=== PATIENT | female | born 1960 | race Caucasian/White ===

== ENCOUNTER 2020-09-03 12:21 | Inpatient (IN) | payer BC ==
[2020-09-03] MEDS ORDERED: Acetaminophen 325 MG Tab PO PRN (12:56)
[2020-09-03] MEDS ORDERED: Morphine 2 MG/ML SYRINGE IVPUSH PRN (12:57)
[2020-09-03] MEDS ORDERED: oxyCODONE 5 MG Tab PO PRN (12:57)
--- NOTE | 2020-09-03 12:58 | PCM.HP.2 ---
<Aldair Richards - Last Filed: 09/03/20 14:37> H&P History of Present Illness - General Date of Service: 09/03/20 Admit Problem/Dx: Admission Diagnosis/Problem Admission Diagnosis/Problem Abdominal pain Source of Information: Patient, Old Records, Provider, RN, RN Notes Reviewed History Limitations: Reports: No Limitations - History of Present Illness Initial Comments - Free Text/Narative: This is a 60-year-old female who presented to the walk-in clinic at [facility] with abdominal pain. She reports the pain began yesterday evening and is gotten worse, to the point where she cannot find a comfortable position. Denies any fever, nausea, diarrhea, constipation, blood in stool, dysuria, urinary frequency or urgency. Reports she did vomit this morning. Has been attempting to eat saltines and yogurt but they did not make her pain any better or worse. States pain is cramping consistent. Denies any previous abdominal surgery or history of diverticulosis or diverticulitis. At the walk-in clinic blood pressure was 136/85. Pulse 71. Temp 97.6 Fahrenheit. Respirations 16. Oxygen saturations were 99% on room air. Labs are obtained showing a leukocytosis of 15.0. Hemoglobin 15.5. Lipase is elevated at 198, with a reference range of 8-78 being normal. UA is obtained and is grossly negative. CMP and amylase are still pending. Abdominal pelvis with contrast is obtained and shows acute pancreatitis without evidence of necrosis and a mildly complex right renal cyst. They recommend follow-up imaging within 6 to 12 months. Additional chronic findings are also noted. Patient reports significant abdominal pain. Patient was subsequently set to our hospital for direct admit for management of her pancreatitis. She carries a history of hypercholesteremia, hemorrhoids, and high triglycerides. She is a full code. Her PCP is Dr. German. - Related Data Allergies/Adverse Reactions: Allergies Allergy/AdvReac Type Severity Reaction Status Date / Time No Known Allergies Allergy Verified 06/11/14 17:49 Home Medications: Home Meds Calcium Carbonate [Calcium] 500 mg PO BID 09/03/20 [History] Cholecalciferol (Vitamin D3) [Vitamin D3] 1,000 unit PO DAILY 09/03/20 [History] Estrogens, Conjugated [Premarin Vaginal Crm] 30 gm VAG ASDIRECTED 09/03/20 [History] Gluc/MSM/C/[place]rape[place]/Manganes/Prim [Joint Support Complex Softgel] 1 tab PO BID 09/03/20 [History] Loratadine [Claritin] 10 mg PO DAILY 09/03/20 [History] Multivitamin [Multi-Day Vitamins] 1 tab PO DAILY 09/03/20 [History] Rosuvastatin [Crestor] 20 mg PO DAILY 09/03/20 [History] Ubidecarenone [Co Q-10] 50 mg PO DAILY 09/03/20 [History] H&P Review of Systems - Review of Systems: Review Of Systems: See Below General: Reports: No Symptoms. Denies: Fever, Chills, Malaise, Weakness, Fatigue HEENT: Reports: No Symptoms. Denies: Headaches, Sore Throat Pulmonary: Reports: No Symptoms. Denies: Shortness of Breath, Wheezing, Pleuritic Chest Pain, Cough, Sputum Cardiovascular: Reports: No Symptoms. Denies: Chest Pain, Palpitations, Dyspnea on Exertion, Edema Gastrointestinal: Reports: Abdominal Pain (generalized ), Vomiting. Denies: Black Stool, Bloody Stool, Constipation, Diarrhea, Nausea Genitourinary: Reports: No Symptoms. Denies: Pain Musculoskeletal: Reports: No Symptoms Skin: Reports: No Symptoms. Denies: Cyanosis Psychiatric: Reports: No Symptoms. Denies: Confusion Neurological: Reports: No Symptoms. Denies: Difficulty Walking, Gait Disturbance Hematologic/Lymphatic: Reports: No Symptoms Immunologic: Reports: No Symptoms Exam - Exam Exam: See Below - Vital Signs Weight: 179 lb 3.2 oz - Exam Quality Assessment: DVT Prophylaxis. No: Supplemental Oxygen, Urinary Catheter General: Alert, Oriented, Cooperative. No: Mild Distress HEENT: Conjunctiva Clear, EACs Clear, Mucosa Moist & [place], Nares Patent, Posterior Pharynx Clear Neck: Supple, Trachea Midline Lungs: Clear to Auscultation, Normal Respiratory Effort Cardiovascular: Regular Rate, Regular Rhythm GI/Abdominal Exam: Normal Bowel Sounds, Soft, No Distention, Guarding, Tender (Generalized ) (Female) Exam: Deferred Rectal (Female) Exam: Deferred Back Exam: Normal Inspection, Full Range of Motion Extremities: Normal Inspection, Normal Range of Motion, Non-Tender, No Pedal Edema, Normal Capillary Refill Skin: Warm, Dry, Intact Neurological: Cranial Nerves Intact (Grossly ) Neuro Extensive - Mental Status: Alert, Oriented x3, Normal Mood/Affect - Problem List (1) Pancreatitis SNOMED Code(s): 95514792 ICD Code: K85.90 - ACUTE PANCREATITIS WITHOUT NECROSIS OR INFECTION, UNSP Status: Acute Priority: High Current Visit: Yes Qualifiers: Chronicity: acute Pancreatitis type: unspecified pancreatitis type Acute pancreatitis complication: no infection or necrosis Qualified Code(s): K85.90 - Acute pancreatitis without necrosis or infection, unspecified (2) Abdominal pain SNOMED Code(s): 31775324 ICD Code: R10.9 - UNSPECIFIED ABDOMINAL PAIN Status: Acute Priority: High Current Visit: Yes Qualifiers: Abdominal location: generalized Qualified Code(s): R10.84 - Generalized abdominal pain (3) HLD (hyperlipidemia) SNOMED Code(s): 37886443 ICD Code: E78.5 - HYPERLIPIDEMIA, UNSPECIFIED Status: Chronic Priority: Medium Current Visit: Yes Qualifiers: Hyperlipidemia type: unspecified Qualified Code(s): E78.5 - Hyperlipidemia, unspecified (4) Hypertriglyceridemia SNOMED Code(s): 055595390 ICD Code: E78.1 - PURE HYPERGLYCERIDEMIA Status: Chronic Priority: Medium Current Visit: Yes (5) Nausea & vomiting SNOMED Code(s): 19065331 ICD Code: R11.2 - NAUSEA WITH VOMITING, UNSPECIFIED Status: Acute Priority: High Current Visit: Yes Qualifiers: Vomiting type: unspecified Vomiting Intractability: non-intractable Qualified Code(s): R11.2 - Nausea with vomiting, unspecified Problem List Initiated/Reviewed/Updated: Yes Orders Last 24hrs: Active Orders 24 hr Category Date Time Status Patient Status [ADT] Routine ADT 09/03/20 12:54 Ordered Height and Weight [RC] DAILY Care 09/03/20 12:53 Ordered Intake and Output [RC] DAILY Care 09/03/20 12:55 Ordered Oxygen Therapy [RC] ASDIRECTED Care 09/03/20 12:53 Ordered Pulse Oximetry [RC] PRN Care 09/03/20 12:55 Ordered Up ad Daysi [RC] ASDIRECTED Care 09/03/20 12:53 Ordered Vital Signs [RC] Q6H Care 09/03/20 12:53 Ordered Consult to [employer] [CONS] Routine Cons 09/03/20 12:53 Ordered Nothing per Oral Now Diet [DIET] Diet 09/03/20 Lunch Ordered C-REACTIVE PROTEIN [CHEM] AM Lab 09/04/20 05:11 Ordered C-REACTIVE PROTEIN [CHEM] AM Lab 09/05/20 05:11 Ordered C-REACTIVE PROTEIN [CHEM] AM Lab 09/06/20 05:11 Ordered C-REACTIVE PROTEIN [CHEM] AM Lab 09/07/20 05:11 Ordered CBC WITH AUTO DIFF [HEME] AM Lab 09/04/20 05:11 Ordered CBC WITH AUTO DIFF [HEME] AM Lab 09/05/20 05:11 Ordered CBC WITH AUTO DIFF [HEME] AM Lab 09/06/20 05:11 Ordered CBC WITH AUTO DIFF [HEME] AM Lab 09/07/20 05:11 Ordered COMPREHENSIVE METABOLIC PN,CMP [CHEM] AM Lab 09/04/20 05:11 Ordered COMPREHENSIVE METABOLIC PN,CMP [CHEM] AM Lab 09/05/20 05:11 Ordered COMPREHENSIVE METABOLIC PN,CMP [CHEM] AM Lab 09/06/20 05:11 Ordered COMPREHENSIVE METABOLIC PN,CMP [CHEM] AM Lab 09/07/20 05:11 Ordered LIPID PANEL [CHEM] Routine Lab 09/03/20 12:56 Ordered MAGNESIUM [CHEM] AM Lab 09/04/20 05:11 Ordered MAGNESIUM [CHEM] AM Lab 09/05/20 05:11 Ordered MAGNESIUM [CHEM] AM Lab 09/06/20 05:11 Ordered MAGNESIUM [CHEM] AM Lab 09/07/20 05:11 Ordered Acetaminophen [TylenoL] Med 09/03/20 12:56 Ordered 650 mg PO Q6H PRN Morphine Med 09/03/20 12:57 Ordered 2 mg IVPUSH Q2H PRN Ondansetron [Zofran] Med 09/03/20 12:53 Ordered 4 mg IV Q6H PRN Sodium Chloride 0.9% @ 150 MLS/HR (1000ml Bag) Med 09/03/20 13:00 Ordered Sodium Chloride 0.9% [Normal Saline] 1,000 ml IV ASDIRECTED oxyCODONE Med 09/03/20 12:57 Ordered 5 mg PO Q6H PRN Resuscitation Status Routine Resus Stat 09/03/20 12:53 Ordered Medication Orders Acetaminophen (Acetaminophen 325 Mg Tab) 650 mg PO Q6H PRN PRN Reason: Pain (mild 1-3) Sodium Chloride (Normal Saline) 1,000 mls @ 150 mls/hr IV ASDIRECTED [facility] Morphine Sulfate (Morphine 2 Mg/Ml Syringe) 2 mg IVPUSH Q2H PRN PRN Reason: Pain (severe 7-10) Ondansetron HCl (Ondansetron 4 Mg/2 Ml Sdv) 4 mg IV Q6H PRN PRN Reason: Nausea/Vomiting Oxycodone HCl (Oxycodone 5 Mg Tab) 5 mg PO Q6H PRN PRN Reason: Pain (moderate 4-6) Assessment/Plan Comment:: Assessment - day of admission 09/03/2020 * 60-year-old female who presented to the walk-in clinic at [facility] with abdominal pain * History of hypercholesteremia, hemorrhoids, and high triglycerides. * Pain began yesterday evening and is gotten worse, to the point where she cannot find a comfortable position * Denies any fever, nausea, diarrhea, constipation, blood in stool, dysuria, urinary frequency or urgency * Did vomit this morning. * Has been attempting to eat saltines and yogurt but they did not make her pain any better or worse. * States pain is cramping and consistent in nature * Denies any previous abdominal surgery or history of diverticulosis or diverticulitis * At the walk-in clinic blood pressure was 136/85. Pulse 71. Temp 97.6 Fahrenheit. Respirations 16. Oxygen saturations were 99% on room air. * Labs are obtained: * WBC 15.0. * Hemoglobin 15.5. * Lipase is elevated at 198, with a reference range of 8-78 being normal. * UA is obtained and is grossly negative. * CMP and amylase are still pending. * Abdominal pelvis with contrast is obtained and shows acute pancreatitis without evidence of necrosis and a mildly complex right renal cyst. They recommend follow-up imaging within 6 to 12 months. Additional chronic find ings are also noted. * Patient reports significant abdominal pain. * Was subsequently set to our hospital for direct admit for management of her pancreatitis. PLAN Pancreatitis Abdominal pain HLD (hyperlipidemia) Hypertriglyceridemia Nausea & vomiting * NPO for now * IV fluids as ordered * Check lipid panel * Repeat AM labs * Consider abdominal US, although no current signs of biliary involvement * [employer] consultation * Pain medications as ordered * COVID-19 screen for admission * O2 as need to keep saturations >92% Code status: Full code PCP: Dr. German DVT prophylaxis: Lovenox Disposition: Patient admitted observation status for pain management and further management of her pancreatitis. Of note original order was placed for inpatient, however this is an error. Likely length of stay 1 to 2 days. - Mortality Measure Prognosis:: Good <NakiaOwen Kasper Jr - Last Filed: 09/04/20 05:52> H&P History of Present Illness - General Admit Problem/Dx: Admission Diagnosis/Problem Admission Diagnosis/Problem Abdominal pain Exam - Vital Signs Vital Signs: Last Vital Signs Temp 97.7 F 09/04/20 05:16 Pulse 79 09/04/20 05:16 Resp 18 09/04/20 05:16 BP 117/70 09/04/20 05:16 Pulse Ox 91 L 09/04/20 05:16 - Patient Data Lab Results Last 24 hrs: Laboratory Results - last 24 hr 09/03/20 09/03/20 09/03/20 Range/Units 13:30 14:00 15:12 Sodium 134 L (136-145) mEq/L Potassium 3.7 (3.5-5.1) mEq/L Chloride 98 (98-107) mEq/L Carbon Dioxide 23 (21-32) mEq/L Anion Gap 16.7 H (5-15) BUN 7 (7-18) mg/dL Creatinine TNP Est Cr Clr Drug Dosing 67.59 mL/min Estimated GFR (MDRD) > 60 (>60) mL/min BUN/Creatinine Ratio 10.0 L (14-18) Glucose 209 H (70-99) mg/dL POC Glucose (70-99) mg/dL Lactic Acid Calcium 7.4 L (8.5-10.1) mg/dL Total Bilirubin 0.9 (0.2-1.0) mg/dL AST TNP ALT TNP Alkaline Phosphatase 63 (46-116) U/L Total Protein TNP Albumin 3.5 (3.4-5.0) g/dl Globulin 3.1 gm/dL Albumin/Globulin Ratio 1.1 (1-2) Triglycerides 3791 H (<150) mg/dL Cholesterol 441 H (<200) mg/dL LDL Cholesterol Direct 72 (<100) mg/dL HDL Cholesterol 27.0 L (40-59) mg/dL TSH 3rd Generation 1.172 (0.358-3.74) uIU/mL SARS-CoV-2 RNA (KIM) Negative (NEGATIVE) 09/03/20 09/03/20 09/03/20 Range/Units 15:12 16:45 23:47 Sodium (136-145) mEq/L Potassium (3.5-5.1) mEq/L Chloride (98-107) mEq/L Carbon Dioxide (21-32) mEq/L Anion Gap (5-15) BUN (7-18) mg/dL Creatinine Est Cr Clr Drug Dosing mL/min Estimated GFR (MDRD) (>60) mL/min BUN/Creatinine Ratio (14-18) Glucose (70-99) mg/dL POC Glucose 133 H 155 H (70-99) mg/dL Lactic Acid TNP Calcium (8.5-10.1) mg/dL Total Bilirubin (0.2-1.0) mg/dL AST ALT Alkaline Phosphatase (46-116) U/L Total Protein Albumin (3.4-5.0) g/dl Globulin gm/dL Albumin/Globulin Ratio (1-2) Triglycerides (<150) mg/dL Cholesterol (<200) mg/dL LDL Cholesterol Direct (<100) mg/dL HDL Cholesterol (40-59) mg/dL TSH 3rd Generation (0.358-3.74) uIU/mL SARS-CoV-2 RNA (KIM) (NEGATIVE) 09/04/20 Range/Units 05:11 Sodium (136-145) mEq/L Potassium (3.5-5.1) mEq/L Chloride (98-107) mEq/L Carbon Dioxide (21-32) mEq/L Anion Gap (5-15) BUN (7-18) mg/dL Creatinine Est Cr Clr Drug Dosing mL/min Estimated GFR (MDRD) (>60) mL/min BUN/Creatinine Ratio (14-18) Glucose (70-99) mg/dL POC Glucose 140 H (70-99) mg/dL Lactic Acid Calcium (8.5-10.1) mg/dL Total Bilirubin (0.2-1.0) mg/dL AST ALT Alkaline Phosphatase (46-116) U/L Total Protein Albumin (3.4-5.0) g/dl Globulin gm/dL Albumin/Globulin Ratio (1-2) Triglycerides (<150) mg/dL Cholesterol (<200) mg/dL LDL Cholesterol Direct (<100) mg/dL HDL Cholesterol (40-59) mg/dL TSH 3rd Generation (0.358-3.74) uIU/mL SARS-CoV-2 RNA (KIM) (NEGATIVE) Result Diagrams: 09/03/20 15:12 Sepsis Event Note - Focused Exam Vital Signs: Vital Signs Temp Pulse Resp BP Pulse Ox 09/04/20 05:16 97.7 F 79 18 117/70 91 L 09/03/20 23:51 97.5 F 80 20 122/77 92 L 09/03/20 19:44 98.1 F 87 16 143/83 H 92 L Orders Last 24hrs: Active Orders 24 hr Category Date Time Status Patient Status [ADT] Routine ADT 09/03/20 13:51 Active Blood Glucose Check, Bedside [RC] Q6HR Care 09/03/20 14:36 Active Height and Weight [RC] 04 Care 09/03/20 12:53 Active Intake and Output [RC] 04,16 Care 09/03/20 12:55 Active Peripheral IV Care [RC] Q4HR Care 09/03/20 12:59 Active Pulse Oximetry [RC] PRN Care 09/03/20 12:55 Active Up ad Daysi [RC] BID Care 09/03/20 12:53 Active Vital Signs [RC] 09,15,21,03 Care 09/03/20 12:53 Active Consult to [employer] [CONS] Routine Cons 09/03/20 12:53 Active Nothing per Oral Now Diet [DIET] Diet 09/03/20 Lunch Active C-REACTIVE PROTEIN [CHEM] AM Lab 09/04/20 05:11 Ordered C-REACTIVE PROTEIN [CHEM] AM Lab 09/05/20 05:11 Ordered C-REACTIVE PROTEIN [CHEM] AM Lab 09/06/20 05:11 Ordered C-REACTIVE PROTEIN [CHEM] AM Lab 09/07/20 05:11 Ordered CBC WITH AUTO DIFF [HEME] AM Lab 09/04/20 05:11 Ordered CBC WITH AUTO DIFF [HEME] AM Lab 09/05/20 05:11 Ordered CBC WITH AUTO DIFF [HEME] AM Lab 09/06/20 05:11 Ordered CBC WITH AUTO DIFF [HEME] AM Lab 09/07/20 05:11 Ordered COMPREHENSIVE METABOLIC PN,CMP [CHEM] AM Lab 09/04/20 05:11 Ordered COMPREHENSIVE METABOLIC PN,CMP [CHEM] AM Lab 09/05/20 05:11 Ordered COMPREHENSIVE METABOLIC PN,CMP [CHEM] AM Lab 09/06/20 05:11 Ordered COMPREHENSIVE METABOLIC PN,CMP [CHEM] AM Lab 09/07/20 05:11 Ordered MAGNESIUM [CHEM] AM Lab 09/04/20 05:11 Ordered MAGNESIUM [CHEM] AM Lab 09/05/20 05:11 Ordered MAGNESIUM [CHEM] AM Lab 09/06/20 05:11 Ordered MAGNESIUM [CHEM] AM Lab 09/07/20 05:11 Ordered Acetaminophen [TylenoL] Med 09/03/20 12:56 Active 650 mg PO Q6H PRN Enoxaparin [Lovenox] Med 09/04/20 09:00 Pending 40 mg SUBCUT DAILY Fenofibrate Med 09/04/20 09:00 Active 54 mg PO DAILY HYDROmorphone [Dilaudid] Med 09/03/20 20:25 Active 2 mg IVPUSH Q4H PRN Ondansetron [Zofran] Med 09/03/20 12:53 Active 4 mg IV Q6H PRN Rosuvastatin [Crestor] Med 09/03/20 21:00 Active 20 mg PO BEDTIME Sodium Chloride 0.9% [Normal Saline] 1,000 ml Med 09/03/20 14:45 Active IV ASDIRECTED Sodium Chloride 0.9% [Saline Flush] Med 09/03/20 12:59 Active 10 ml FLUSH ASDIRECTED PRN oxyCODONE Med 09/03/20 12:57 Active 5 mg PO Q6H PRN Peripheral IV Insertion Adult [OM.PC] Routine Oth 09/03/20 12:59 Ordered Resuscitation Status Routine Resus Stat 09/03/20 12:53 Ordered Medication Orders Acetaminophen (Acetaminophen 325 Mg Tab) 650 mg PO Q6H PRN PRN Reason: Pain (mild 1-3) Enoxaparin Sodium (Enoxaparin 40 Mg/0.4 Ml Syringe) 40 mg SUBCUT DAILY [place] Fenofibrate (Fenofibrate 54 Mg Tab) 54 mg PO DAILY [place] Hydromorphone HCl (Hydromorphone 1 Mg/Ml Syringe) 2 mg IVPUSH Q4H PRN PRN Reason: Pain Last Admin: 09/04/20 05:32 Dose: 2 mg Documented by: Admin: 09/03/20 23:21 Dose: 2 mg Documented by: SCOTT Sodium Chloride (Normal Saline) 1,000 mls @ 250 mls/hr IV ASDIRECTED [facility] Last Admin: 09/04/20 05:29 Dose: 250 mls/hr Documented by: Infusion: 09/04/20 05:24 Dose: 250 mls/hr Documented by: Admin: 09/04/20 01:24 Dose: 250 mls/hr Documented by: Infusion: 09/04/20 01:17 Dose: 250 mls/hr Documented by: Admin: 09/03/20 21:17 Dose: 250 mls/hr Documented by: Infusion: 09/03/20 21:17 Dose: 250 mls/hr Documented by: Admin: 09/03/20 17:53 Dose: 250 mls/hr Documented by: Infusion: 09/03/20 17:53 Dose: 250 mls/hr Documented by: Admin: 09/03/20 14:52 Dose: 250 mls/hr Documented by: ILSA Ondansetron HCl (Ondansetron 4 Mg/2 Ml Sdv) 4 mg IV Q6H PRN PRN Reason: Nausea/Vomiting Last Admin: 09/04/20 05:30 Dose: 4 mg Documented by: Admin: 09/03/20 23:16 Dose: 4 mg Documented by: SCOTT Oxycodone HCl (Oxycodone 5 Mg Tab) 5 mg PO Q6H PRN PRN Reason: Pain (moderate 4-6) Rosuvastatin Calcium (Rosuvastatin 10 Mg Tab) 20 mg PO BEDTIME [facility] Last Admin: 09/03/20 21:16 Dose: 20 mg Documented by: SCOTT Sodium Chloride (Sodium Chloride 0.9% 10 Ml Syringe) 10 ml FLUSH ASDIRECTED PRN PRN Reason: Keep Vein Open Assessment/Plan Comment:: Case discussed in full. Agree with evaluation, assessment and plan.
[2020-09-03] MEDS ORDERED: Sodium Chloride 0.9% 10 ML Syringe FLUSH PRN (12:59)
[2020-09-03] MEDS ORDERED: Sodium Chloride 0.9% 1,000 ML IV SCH (13:00)
[2020-09-03] MEDS ORDERED: HYDROmorphone 0.5 MG/0.5 ML Syringe IVPUSH ONE (14:36)
[2020-09-03] MEDS ORDERED: Ondansetron 4 MG/2 ML SDV IVPUSH ONE (14:38)
[2020-09-03] MEDS ORDERED: oxyCODONE 5 MG Tab PO ONE (14:39)
[2020-09-03] MEDS ORDERED: Morphine 4 MG/ML Syringe IVPUSH PRN (14:44)
[2020-09-03] MEDS: Sodium Chloride 0.9% 1,000 ML IV SCH ×3 (14:52→21:17)
[2020-09-03] MEDS ORDERED: HYDROmorphone 1 MG/ML Syringe IVPUSH ONE (19:00)
[2020-09-03] MEDS ORDERED: HYDROmorphone 1 MG/ML Syringe ONE (19:03)
[2020-09-03] MEDS ORDERED: Rosuvastatin 10 MG Tab PO SCH ×2 (21:00)
[2020-09-03] MEDS: Rosuvastatin 10 MG Tab PO SCH (21:16)
[2020-09-03] MEDS: Ondansetron 4 MG/2 ML SDV IV PRN (23:16)
[2020-09-03] MEDS: HYDROmorphone 1 MG/ML Syringe IVPUSH PRN (23:21)
[2020-09-04] MEDS: Sodium Chloride 0.9% 1,000 ML IV SCH ×6 (01:24→22:08)
[2020-09-04] MEDS: Ondansetron 4 MG/2 ML SDV IV PRN (05:30)
[2020-09-04] MEDS: HYDROmorphone 1 MG/ML Syringe IVPUSH PRN ×2 (05:32→16:39)
[2020-09-04] MEDS: Enoxaparin 40 MG/0.4 ML Syringe SUBCUT SCH (08:48)
[2020-09-04] MEDS: Fenofibrate 54 MG Tab PO SCH (08:49)
[2020-09-04] MEDS ORDERED: Sodium Chloride 0.9% 10 ML Syringe FLUSH PRN (11:09)
--- NOTE | 2020-09-04 11:16 | PCM.PN ---
<Aldair Richards - Last Filed: 09/04/20 11:16> - General Info Date of Service: 09/04/20 Admission Dx/Problem (Free Text): Admission Diagnosis/Problem Admission Diagnosis/Problem Abdominal pain Functional Status: Reports: Pain Controlled (For the most part ), Ambulating, Urinating. Denies: Tolerating Diet (NPO), New Symptoms - Review of Systems General: Reports: Weakness, Fatigue, Malaise. Denies: Chills HEENT: Reports: No Symptoms. Denies: Headaches, Post Nasal Drip, Sore Throat, Visual Changes Pulmonary: Reports: No Symptoms. Denies: Shortness of Breath, Cough, Sputum, Wheezing Cardiovascular: Reports: No Symptoms. Denies: Chest Pain, Palpitations, Dyspnea on Exertion, Edema Gastrointestinal: Reports: Abdominal Pain (LUQ>LLQ, generalized ), Decreased Appetite, Nausea, Vomiting. Denies: Constipation, Diarrhea Genitourinary: Reports: No Symptoms. Denies: Pain Musculoskeletal: Reports: No Symptoms Skin: Reports: No Symptoms. Denies: Cyanosis Neurological: Reports: No Symptoms. Denies: Confusion, Dizziness, Headache, Numbness, Pre-Existing Deficit, Tingling, Difficulty Walking, Gait Disturbance Psychiatric: Reports: No Symptoms - Patient Data Vitals - Most Recent: Last Vital Signs Temp 97.9 F 09/04/20 08:33 Pulse 81 09/04/20 08:33 Resp 20 09/04/20 08:33 BP 110/66 09/04/20 08:33 Pulse Ox 93 L 09/04/20 08:33 Weight - Most Recent: 185 lb 4.8 oz I&O - Last 24 Hours: Intake & Output 09/03/20 09/04/20 09/04/20 22:59 06:59 14:59 Intake Total 3772 Output Total 650 Balance 3122 Lab Results Last 24 Hours: Laboratory Results - last 24 hr 09/03/20 09/03/20 09/03/20 Range/Units 13:30 14:00 15:12 WBC (3.98-10.04) K/mm3 RBC (3.98-5.22) M/mm3 Hgb (11.2-15.7) gm/dl Hct (34.1-44.9) % MCV (79.4-94.8) fl MCH (25.6-32.2) pg MCHC (32.2-35.5) g/dl RDW Std Deviation (36.4-46.3) fL Plt Count (182-369) K/mm3 MPV (9.4-12.3) fl Neut % (Auto) (34.0-71.1) % Lymph % (Auto) (19.3-51.7) % Day % (Auto) (4.7-12.5) % Eos % (Auto) (0.7-5.8) Baso % (Auto) (0.1-1.2) % Neut # (Auto) (1.56-6.13) K/mm3 Lymph # (Auto) (1.18-3.74) K/mm3 Day # (Auto) (0.24-0.36) K/mm3 Eos # (Auto) (0.04-0.36) K/mm3 Baso # (Auto) (0.01-0.08) K/mm3 Sodium 134 L (136-145) mEq/L Potassium 3.7 (3.5-5.1) mEq/L Chloride 98 (98-107) mEq/L Carbon Dioxide 23 (21-32) mEq/L Anion Gap 16.7 H (5-15) BUN 7 (7-18) mg/dL Creatinine TNP Est Cr Clr Drug Dosing 67.59 mL/min Estimated GFR (MDRD) > 60 (>60) mL/min BUN/Creatinine Ratio 10.0 L (14-18) Glucose 209 H (70-99) mg/dL POC Glucose (70-99) mg/dL Lactic Acid Calcium 7.4 L (8.5-10.1) mg/dL Magnesium (1.8-2.4) mg/dL Total Bilirubin 0.9 (0.2-1.0) mg/dL AST TNP ALT TNP Alkaline Phosphatase 63 (46-116) U/L C-Reactive Protein (<1.0) mg/dL Total Protein TNP Albumin 3.5 (3.4-5.0) g/dl Globulin 3.1 gm/dL Albumin/Globulin Ratio 1.1 (1-2) Triglycerides 3791 H (<150) mg/dL Cholesterol 441 H (<200) mg/dL LDL Cholesterol Direct 72 (<100) mg/dL HDL Cholesterol 27.0 L (40-59) mg/dL TSH 3rd Generation 1.172 (0.358-3.74) uIU/mL SARS-CoV-2 RNA (KIM) Negative (NEGATIVE) 09/03/20 09/03/20 09/03/20 Range/Units 15:12 16:45 23:47 WBC (3.98-10.04) K/mm3 RBC (3.98-5.22) M/mm3 Hgb (11.2-15.7) gm/dl Hct (34.1-44.9) % MCV (79.4-94.8) fl MCH (25.6-32.2) pg MCHC (32.2-35.5) g/dl RDW Std Deviation (36.4-46.3) fL Plt Count (182-369) K/mm3 MPV (9.4-12.3) fl Neut % (Auto) (34.0-71.1) % Lymph % (Auto) (19.3-51.7) % Day % (Auto) (4.7-12.5) % Eos % (Auto) (0.7-5.8) Baso % (Auto) (0.1-1.2) % Neut # (Auto) (1.56-6.13) K/mm3 Lymph # (Auto) (1.18-3.74) K/mm3 Day # (Auto) (0.24-0.36) K/mm3 Eos # (Auto) (0.04-0.36) K/mm3 Baso # (Auto) (0.01-0.08) K/mm3 Sodium (136-145) mEq/L Potassium (3.5-5.1) mEq/L Chloride (98-107) mEq/L Carbon Dioxide (21-32) mEq/L Anion Gap (5-15) BUN (7-18) mg/dL Creatinine Est Cr Clr Drug Dosing mL/min Estimated GFR (MDRD) (>60) mL/min BUN/Creatinine Ratio (14-18) Glucose (70-99) mg/dL POC Glucose 133 H 155 H (70-99) mg/dL Lactic Acid TNP Calcium (8.5-10.1) mg/dL Magnesium (1.8-2.4) mg/dL Total Bilirubin (0.2-1.0) mg/dL AST ALT Alkaline Phosphatase (46-116) U/L C-Reactive Protein (<1.0) mg/dL Total Protein Albumin (3.4-5.0) g/dl Globulin gm/dL Albumin/Globulin Ratio (1-2) Triglycerides (<150) mg/dL Cholesterol (<200) mg/dL LDL Cholesterol Direct (<100) mg/dL HDL Cholesterol (40-59) mg/dL TSH 3rd Generation (0.358-3.74) uIU/mL SARS-CoV-2 RNA (KIM) (NEGATIVE) 09/04/20 09/04/20 09/04/20 Range/Units 05:11 05:11 06:53 WBC 5.04 (3.98-10.04) K/mm3 RBC 5.03 (3.98-5.22) M/mm3 Hgb 15.5 D (11.2-15.7) gm/dl Hct 43.6 (34.1-44.9) % MCV 86.7 (79.4-94.8) fl MCH 30.8 (25.6-32.2) pg MCHC 35.6 H (32.2-35.5) g/dl RDW Std Deviation 42.8 (36.4-46.3) fL Plt Count 196 D (182-369) K/mm3 MPV 10.2 (9.4-12.3) fl Neut % (Auto) 77.8 H (34.0-71.1) % Lymph % (Auto) 14.1 L (19.3-51.7) % Day % (Auto) 7.9 (4.7-12.5) % Eos % (Auto) 0 L (0.7-5.8) Baso % (Auto) 0.2 (0.1-1.2) % Neut # (Auto) 3.92 (1.56-6.13) K/mm3 Lymph # (Auto) 0.71 L (1.18-3.74) K/mm3 Day # (Auto) 0.40 H (0.24-0.36) K/mm3 Eos # (Auto) 0.00 L (0.04-0.36) K/mm3 Baso # (Auto) 0.01 (0.01-0.08) K/mm3 Sodium 137 (136-145) mEq/L Potassium 3.6 (3.5-5.1) mEq/L Chloride 105 (98-107) mEq/L Carbon Dioxide 12 L D (21-32) mEq/L Anion Gap 23.6 H (5-15) BUN 10 (7-18) mg/dL Creatinine 0.6 Est Cr Clr Drug Dosing 78.86 mL/min Estimated GFR (MDRD) > 60 (>60) mL/min BUN/Creatinine Ratio 16.7 (14-18) Glucose 171 H (70-99) mg/dL POC Glucose 140 H (70-99) mg/dL Lactic Acid Calcium 6.3 L (8.5-10.1) mg/dL Magnesium 1.7 L (1.8-2.4) mg/dL Total Bilirubin Cancelled (0.2-1.0) mg/dL AST Cancelled ALT Cancelled Alkaline Phosphatase Cancelled (46-116) U/L C-Reactive Protein 1.6 H* (<1.0) mg/dL Total Protein Cancelled Albumin Cancelled (3.4-5.0) g/dl Globulin Cancelled gm/dL Albumin/Globulin Ratio Cancelled (1-2) Triglycerides (<150) mg/dL Cholesterol (<200) mg/dL LDL Cholesterol Direct (<100) mg/dL HDL Cholesterol (40-59) mg/dL TSH 3rd Generation (0.358-3.74) uIU/mL SARS-CoV-2 RNA (KIM) (NEGATIVE) Med Orders - Current: Current Medications Acetaminophen (Acetaminophen 325 Mg Tab) 650 mg PO Q6H PRN PRN Reason: Pain (mild 1-3) Enoxaparin Sodium (Enoxaparin 40 Mg/0.4 Ml Syringe) 40 mg SUBCUT DAILY SOULEYMANE Last Admin: 09/04/20 08:48 Dose: 40 mg Documented by: Fenofibrate (Fenofibrate 54 Mg Tab) 54 mg PO DAILY SOULEYMANE Last Admin: 09/04/20 08:49 Dose: 54 mg Documented by: Hydromorphone HCl (Hydromorphone 1 Mg/Ml Syringe) 2 mg IVPUSH Q4H PRN PRN Reason: Pain Last Admin: 09/04/20 05:32 Dose: 2 mg Documented by: Sodium Chloride (Normal Saline) 1,000 mls @ 250 mls/hr IV ASDIRECTED [facility] Last Admin: 09/04/20 09:28 Dose: 250 mls/hr Documented by: Insulin Human Regular 100 unit (/ Sodium Chloride) 100 mls @ 8.405 mls/hr IV ASDIRECTED [facility] Dextrose/Sodium Chloride (Dextrose 5%-Normal Saline) 1,000 mls @ 100 mls/hr IV ASDIRECTED [facility] Ondansetron HCl (Ondansetron 4 Mg/2 Ml Sdv) 4 mg IV Q6H PRN PRN Reason: Nausea/Vomiting Last Admin: 09/04/20 05:30 Dose: 4 mg Documented by: Oxycodone HCl (Oxycodone 5 Mg Tab) 5 mg PO Q6H PRN PRN Reason: Pain (moderate 4-6) Rosuvastatin Calcium (Rosuvastatin 10 Mg Tab) 20 mg PO BEDTIME [facility] Last Admin: 09/03/20 21:16 Dose: 20 mg Documented by: Sodium Chloride (Sodium Chloride 0.9% 10 Ml Syringe) 10 ml FLUSH ASDIRECTED PRN PRN Reason: Keep Vein Open Discontinued Medications Hydromorphone HCl (Hydromorphone 0.5 Mg/0.5 Ml Syringe) 0.5 mg IVPUSH ONETIME ONE Stop: 09/03/20 14:37 Last Admin: 09/03/20 14:48 Dose: 0.5 mg Documented by: Hydromorphone HCl (Hydromorphone 1 Mg/Ml Syringe) 2 mg IVPUSH ONETIME ONE Stop: 09/03/20 19:01 Last Admin: 09/03/20 19:11 Dose: 2 mg Documented by: Hydromorphone HCl (Hydromorphone 1 Mg/Ml Syringe) Confirm Administered Dose 2 mg .ROUTE .STK-MED ONE Stop: 09/03/20 19:04 Last Admin: 09/03/20 19:11 Dose: Not Given Documented by: Sodium Chloride (Normal Saline) 1,000 mls @ 150 mls/hr IV ASDIRECTED [facility] Last Admin: 09/03/20 13:07 Dose: 150 mls/hr Documented by: Morphine Sulfate (Morphine 2 Mg/Ml Syringe) 2 mg IVPUSH Q2H PRN PRN Reason: Pain (severe 7-10) Last Admin: 09/03/20 13:06 Dose: 2 mg Documented by: Morphine Sulfate (Morphine 4 Mg/Ml Syringe) 4 mg IVPUSH Q2H PRN PRN Reason: Pain (severe 7-10) Last Admin: 09/03/20 17:07 Dose: 4 mg Documented by: Ondansetron HCl (Ondansetron 4 Mg/2 Ml Sdv) 4 mg IVPUSH ONETIME ONE Stop: 09/03/20 14:39 Last Admin: 09/03/20 14:48 Dose: 4 mg Documented by: Oxycodone HCl (Oxycodone 5 Mg Tab) 5 mg PO ONETIME ONE Stop: 09/03/20 14:40 Last Admin: 09/03/20 14:48 Dose: 5 mg Documented by: Rosuvastatin Calcium (Rosuvastatin 10 Mg Tab) 10 mg PO BEDTIME SOULEYMANE Rosuvastatin Calcium (Rosuvastatin 10 Mg Tab) 5 mg PO BEDTIME SOULEYMANE Sodium Chloride (Sodium Chloride 0.9% 10 Ml Syringe) 10 ml FLUSH ASDIRECTED PRN PRN Reason: Keep Vein Open - Exam Quality Assessment: DVT Prophylaxis. No: Supplemental Oxygen, Urine Catheter General: Alert, Oriented, Cooperative, No Acute Distress HEENT: Pupils Equal, Pupils Reactive, Mucous Membr. Moist/[place] Neck: Supple, Trachea Midline Lungs: Clear to Auscultation, Normal Respiratory Effort Cardiovascular: Regular Rate, Regular Rhythm GI/Abdominal Exam: Normal Bowel Sounds, Soft, No Distention, Guarding, Tender (LUQ>LLQ, generalized ) (Female) Exam: Deferred Back Exam: Normal Inspection, Full Range of Motion Extremities: Normal Inspection, Normal Range of Motion, Non-Tender, No Pedal Edema, Normal Capillary Refill Peripheral Pulses: 3+: Radial (L), Radial (R), Dorsalis Pedis (L), Dorsalis Pedis (R) Skin: Warm, Dry, Intact Neurological: No New Focal Deficit Psy/Mental Status: Alert, Normal Affect, Normal Mood - Patient Data Lab Results Last 24 hrs: Laboratory Results - last 24 hr 09/03/20 09/03/20 09/03/20 Range/Units 13:30 14:00 15:12 WBC (3.98-10.04) K/mm3 RBC (3.98-5.22) M/mm3 Hgb (11.2-15.7) gm/dl Hct (34.1-44.9) % MCV (79.4-94.8) fl MCH (25.6-32.2) pg MCHC (32.2-35.5) g/dl RDW Std Deviation (36.4-46.3) fL Plt Count (182-369) K/mm3 MPV (9.4-12.3) fl Neut % (Auto) (34.0-71.1) % Lymph % (Auto) (19.3-51.7) % Day % (Auto) (4.7-12.5) % Eos % (Auto) (0.7-5.8) Baso % (Auto) (0.1-1.2) % Neut # (Auto) (1.56-6.13) K/mm3 Lymph # (Auto) (1.18-3.74) K/mm3 Day # (Auto) (0.24-0.36) K/mm3 Eos # (Auto) (0.04-0.36) K/mm3 Baso # (Auto) (0.01-0.08) K/mm3 Sodium 134 L (136-145) mEq/L Potassium 3.7 (3.5-5.1) mEq/L Chloride 98 (98-107) mEq/L Carbon Dioxide 23 (21-32) mEq/L Anion Gap 16.7 H (5-15) BUN 7 (7-18) mg/dL Creatinine TNP Est Cr Clr Drug Dosing 67.59 mL/min Estimated GFR (MDRD) > 60 (>60) mL/min BUN/Creatinine Ratio 10.0 L (14-18) Glucose 209 H (70-99) mg/dL POC Glucose (70-99) mg/dL Lactic Acid Calcium 7.4 L (8.5-10.1) mg/dL Magnesium (1.8-2.4) mg/dL Total Bilirubin 0.9 (0.2-1.0) mg/dL AST TNP ALT TNP Alkaline Phosphatase 63 (46-116) U/L C-Reactive Protein (<1.0) mg/dL Total Protein TNP Albumin 3.5 (3.4-5.0) g/dl Globulin 3.1 gm/dL Albumin/Globulin Ratio 1.1 (1-2) Triglycerides 3791 H (<150) mg/dL Cholesterol 441 H (<200) mg/dL LDL Cholesterol Direct 72 (<100) mg/dL HDL Cholesterol 27.0 L (40-59) mg/dL TSH 3rd Generation 1.172 (0.358-3.74) uIU/mL SARS-CoV-2 RNA (KIM) Negative (NEGATIVE) 09/03/20 09/03/20 09/03/20 Range/Units 15:12 16:45 23:47 WBC (3.98-10.04) K/mm3 RBC (3.98-5.22) M/mm3 Hgb (11.2-15.7) gm/dl Hct (34.1-44.9) % MCV (79.4-94.8) fl MCH (25.6-32.2) pg MCHC (32.2-35.5) g/dl RDW Std Deviation (36.4-46.3) fL Plt Count (182-369) K/mm3 MPV (9.4-12.3) fl Neut % (Auto) (34.0-71.1) % Lymph % (Auto) (19.3-51.7) % Day % (Auto) (4.7-12.5) % Eos % (Auto) (0.7-5.8) Baso % (Auto) (0.1-1.2) % Neut # (Auto) (1.56-6.13) K/mm3 Lymph # (Auto) (1.18-3.74) K/mm3 Day # (Auto) (0.24-0.36) K/mm3 Eos # (Auto) (0.04-0.36) K/mm3 Baso # (Auto) (0.01-0.08) K/mm3 Sodium (136-145) mEq/L Potassium (3.5-5.1) mEq/L Chloride (98-107) mEq/L Carbon Dioxide (21-32) mEq/L Anion Gap (5-15) BUN (7-18) mg/dL Creatinine Est Cr Clr Drug Dosing mL/min Estimated GFR (MDRD) (>60) mL/min BUN/Creatinine Ratio (14-18) Glucose (70-99) mg/dL POC Glucose 133 H 155 H (70-99) mg/dL Lactic Acid TNP Calcium (8.5-10.1) mg/dL Magnesium (1.8-2.4) mg/dL Total Bilirubin (0.2-1.0) mg/dL AST ALT Alkaline Phosphatase (46-116) U/L C-Reactive Protein (<1.0) mg/dL Total Protein Albumin (3.4-5.0) g/dl Globulin gm/dL Albumin/Globulin Ratio (1-2) Triglycerides (<150) mg/dL Cholesterol (<200) mg/dL LDL Cholesterol Direct (<100) mg/dL HDL Cholesterol (40-59) mg/dL TSH 3rd Generation (0.358-3.74) uIU/mL SARS-CoV-2 RNA (KIM) (NEGATIVE) 09/04/20 09/04/20 09/04/20 Range/Units 05:11 05:11 06:53 WBC 5.04 (3.98-10.04) K/mm3 RBC 5.03 (3.98-5.22) M/mm3 Hgb 15.5 D (11.2-15.7) gm/dl Hct 43.6 (34.1-44.9) % MCV 86.7 (79.4-94.8) fl MCH 30.8 (25.6-32.2) pg MCHC 35.6 H (32.2-35.5) g/dl RDW Std Deviation 42.8 (36.4-46.3) fL Plt Count 196 D (182-369) K/mm3 MPV 10.2 (9.4-12.3) fl Neut % (Auto) 77.8 H (34.0-71.1) % Lymph % (Auto) 14.1 L (19.3-51.7) % Day % (Auto) 7.9 (4.7-12.5) % Eos % (Auto) 0 L (0.7-5.8) Baso % (Auto) 0.2 (0.1-1.2) % Neut # (Auto) 3.92 (1.56-6.13) K/mm3 Lymph # (Auto) 0.71 L (1.18-3.74) K/mm3 Day # (Auto) 0.40 H (0.24-0.36) K/mm3 Eos # (Auto) 0.00 L (0.04-0.36) K/mm3 Baso # (Auto) 0.01 (0.01-0.08) K/mm3 Sodium 137 (136-145) mEq/L Potassium 3.6 (3.5-5.1) mEq/L Chloride 105 (98-107) mEq/L Carbon Dioxide 12 L D (21-32) mEq/L Anion Gap 23.6 H (5-15) BUN 10 (7-18) mg/dL Creatinine 0.6 Est Cr Clr Drug Dosing 78.86 mL/min Estimated GFR (MDRD) > 60 (>60) mL/min BUN/Creatinine Ratio 16.7 (14-18) Glucose 171 H (70-99) mg/dL POC Glucose 140 H (70-99) mg/dL Lactic Acid Calcium 6.3 L (8.5-10.1) mg/dL Magnesium 1.7 L (1.8-2.4) mg/dL Total Bilirubin Cancelled (0.2-1.0) mg/dL AST Cancelled ALT Cancelled Alkaline Phosphatase Cancelled (46-116) U/L C-Reactive Protein 1.6 H* (<1.0) mg/dL Total Protein Cancelled Albumin Cancelled (3.4-5.0) g/dl Globulin Cancelled gm/dL Albumin/Globulin Ratio Cancelled (1-2) Triglycerides (<150) mg/dL Cholesterol (<200) mg/dL LDL Cholesterol Direct (<100) mg/dL HDL Cholesterol (40-59) mg/dL TSH 3rd Generation (0.358-3.74) uIU/mL SARS-CoV-2 RNA (KIM) (NEGATIVE) Result Diagrams: 09/04/20 06:53 09/04/20 05:11 Sepsis Event Note - Evaluation Sepsis Screening Result: No Definite Risk - Focused Exam Vital Signs: Vital Signs Temp Pulse Resp BP Pulse Ox 09/04/20 08:33 97.9 F 81 20 110/66 93 L 09/04/20 05:16 97.7 F 79 18 117/70 91 L 09/03/20 23:51 97.5 F 80 20 122/77 92 L - Problem List & Annotations (1) Pancreatitis SNOMED Code(s): 90256235 Code(s): K85.90 - ACUTE PANCREATITIS WITHOUT NECROSIS OR INFECTION, UNSP Status: Acute Priority: High Current Visit: Yes Qualifiers: Chronicity: acute Pancreatitis type: unspecified pancreatitis type Acute pancreatitis complication: no infection or necrosis Qualified Code(s): K85.90 - Acute pancreatitis without necrosis or infection, unspecified (2) Abdominal pain SNOMED Code(s): 70822712 Code(s): R10.9 - UNSPECIFIED ABDOMINAL PAIN Status: Acute Priority: High Current Visit: Yes Qualifiers: Abdominal location: generalized Qualified Code(s): R10.84 - Generalized abdominal pain (3) HLD (hyperlipidemia) SNOMED Code(s): 63604282 Code(s): E78.5 - HYPERLIPIDEMIA, UNSPECIFIED Status: Chronic Priority: Medium Current Visit: Yes Qualifiers: Hyperlipidemia type: unspecified Qualified Code(s): E78.5 - Hyperlipidemia, unspecified (4) Hypertriglyceridemia SNOMED Code(s): 846611412 Code(s): E78.1 - PURE HYPERGLYCERIDEMIA Status: Chronic Priority: Medium Current Visit: Yes (5) Nausea & vomiting SNOMED Code(s): 24165323 Code(s): R11.2 - NAUSEA WITH VOMITING, UNSPECIFIED Status: Acute Priority: High Current Visit: Yes Qualifiers: Vomiting type: unspecified Vomiting Intractability: non-intractable Qualified Code(s): R11.2 - Nausea with vomiting, unspecified - Problem List Review Problem List Initiated/Reviewed/Updated: Yes - My Orders Last 24 Hours: My Active Orders 09/03/20 Lunch Nothing per Oral Now Diet [DIET] 09/03/20 12:53 Height and Weight [RC] 04 Up ad Daysi [RC] BID Vital Signs [RC] 09,15,21,03 Consult to Market Research Consultant [CONS] Routine Ondansetron [Zofran] 4 mg IV Q6H PRN Resuscitation Status Routine 09/03/20 12:55 Intake and Output [RC] 04,16 Pulse Oximetry [RC] PRN 09/03/20 12:56 Acetaminophen [TylenoL] 650 mg PO Q6H PRN 09/03/20 12:57 oxyCODONE 5 mg PO Q6H PRN 09/03/20 12:59 Peripheral IV Care [RC] Q4HR Peripheral IV Insertion Adult [OM.PC] Routine 09/03/20 14:36 Blood Glucose Check, Bedside [RC] Q1H 09/03/20 14:45 Sodium Chloride 0.9% [Normal Saline] 1,000 ml IV ASDIRECTED 09/04/20 09:00 Enoxaparin [Lovenox] 40 mg SUBCUT DAILY Fenofibrate 54 mg PO DAILY 09/04/20 10:55 Patient Status [ADT] Routine 09/04/20 11:09 Peripheral IV Care [RC] . DIRECTED Sodium Chloride 0.9% [Saline Flush] 10 ml FLUSH ASDIRECTED PRN Peripheral IV Insertion Adult [OM.PC] Routine 09/04/20 11:11 TRIGLYCERIDES [CHEM] Routine 09/04/20 11:15 Dextrose 5%-Normal Saline @ 100 MLS/HR(1000ml) Dextrose 5%-0.9% NaCl [Dextrose 5%-Normal Saline] 1,000 ml IV ASDIRECTED Insulin Regular, Human [HumuLIN R] 100 unit Sodium Chloride 0.9% [Normal Saline] 99 ml IV ASDIRECTED 09/05/20 05:11 C-REACTIVE PROTEIN [CHEM] AM CBC WITH AUTO DIFF [HEME] AM COMPREHENSIVE METABOLIC PN,CMP [CHEM] AM MAGNESIUM [CHEM] AM 09/06/20 05:11 C-REACTIVE PROTEIN [CHEM] AM CBC WITH AUTO DIFF [HEME] AM COMPREHENSIVE METABOLIC PN,CMP [CHEM] AM MAGNESIUM [CHEM] AM 09/07/20 05:11 C-REACTIVE PROTEIN [CHEM] AM CBC WITH AUTO DIFF [HEME] AM COMPREHENSIVE METABOLIC PN,CMP [CHEM] AM MAGNESIUM [CHEM] AM - Assessment Assessment:: Assessment - day of admission 09/03/2020 * 60-year-old female who presented to the walk-in clinic at [facility] with abdominal pain * History of hypercholesteremia, hemorrhoids, and high triglycerides. * Pain began yesterday evening and is gotten worse, to the point where she cannot find a comfortable position * Denies any fever, nausea, diarrhea, constipation, blood in stool, dysuria, urinary frequency or urgency * Did vomit this morning. * Has been attempting to eat saltines and yogurt but they did not make her pain any better or worse. * States pain is cramping and consistent in nature * Denies any previous abdominal surgery or history of diverticulosis or dive rticulitis * At the walk-in clinic blood pressure was 136/85. Pulse 71. Temp 97.6 Fahrenheit. Respirations 16. Oxygen saturations were 99% on room air. * Labs are obtained: * WBC 15.0. * Hemoglobin 15.5. * Lipase is elevated at 198, with a reference range of 8-78 being normal. * UA is obtained and is grossly negative. * CMP and amylase are still pending. * Abdominal pelvis with contrast is obtained and shows acute pancreatitis without evidence of necrosis and a mildly complex right renal cyst. They recommend follow-up imaging within 6 to 12 months. Additional chronic findings are also noted. * Patient reports significant abdominal pain. * Was subsequently set to our hospital for direct admit for management of her pancreatitis. 09/04/2020 This is a 60-year-old female who was admitted on 09/03/2020 after being seen at the [place] walk-in clinic and noted to have pancreatitis. Lipase was only mildly elevated at [address] scans did show stranding around the pancreas. Patient was also noted to have continued significant abdominal pain. Patient has been receiving quite a bit of oral and IV pain medications. Continues to report left upper quadrant pain with some left lower quadrant pain and generalized abdominal pain. She has been receiving IV fluids. She continues to report nausea and vomiting. Dr. Pompa, ophthalmic technologist with [facility] in [place] is contacted for recommendations. He does report [facility] facility is currently on diversion, however he feels that this is something we can handle locally. He suggests we start a insulin infusion on the patient, start D5 NS, and check blood sugars regularly. Goal would be to decrease triglycerides to less than 1000. He reports this can take several days. He also suggests her pain will likely last for several days as well. Because of the insulin infusion patient will need to be upgraded to ICU status. We will start 1 mg/kg/h insulin infusion and also start D5 NS, which we will titrate based on patient's sugars. We will check blood sugars every 1 hour and triglycerides every 12 hours. Patient is aware of this plan and in agreement. She will remain n.p.o. Length of stay likely 3 to 5 days pending response to therapy. Labs today reveal a WBC of 5.04. Hemoglobin is 15.5. Platelets 196,000. Neutrophils are elevated at 77.8. Sodium is 137. Potassium 3.6. Chloride 105. Carbon dioxide is 12. Anion gap is 23.6. BUN is 10. Creatinine 0.6. GFR greater than 60. Glucose is 171. Calcium 6.3. Magnesium 1.7. CRP is 1.6. Liver enzyme testing is not performed as the patient is very lipoic. - Plan Plan:: Pancreatitis Abdominal pain HLD (hyperlipidemia) Hypertriglyceridemia Nausea & vomiting * NPO for now * IV fluids as ordered * Check triglycerides Q1HR * Repeat AM labs * Start 1mg/kg/hr insulin drip * Q1Hr blood glucose checks * Start D5NS and titrate based on glucose readings * [employer] Consultant consultation * Pain medications as ordered * O2 as need to keep saturations >92% * Start 2nd IV site Code status: Full code PCP: Dr. German DVT prophylaxis: Lovenox Disposition: Patient admitted observation status for pain management and further management of her pancreatitis. Patient will be upgraded to ICU status today due to insulin infusion. Length of stay likely 3 to 4 days, depending on response to treatment. <Owen Yee Jr - Last Filed: 09/04/20 16:37> - Patient Data Vitals - Most Recent: Last Vital Signs Temp 97.9 F 09/04/20 08:33 Pulse 81 09/04/20 08:33 Resp 20 09/04/20 08:33 BP 110/66 09/04/20 08:33 Pulse Ox 94 L 09/04/20 12:55 I&O - Last 24 Hours: Intake & Output 09/04/20 09/04/20 09/04/20 06:59 14:59 22:59 Intake Total 3772 Output Total 650 Balance 3122 Lab Results Last 24 Hours: Laboratory Results - last 24 hr 09/03/20 09/03/20 09/03/20 Range/Units 15:12 16:45 23:47 WBC (3.98-10.04) K/mm3 RBC (3.98-5.22) M/mm3 Hgb (11.2-15.7) gm/dl Hct (34.1-44.9) % MCV (79.4-94.8) fl MCH (25.6-32.2) pg MCHC (32.2-35.5) g/dl RDW Std Deviation (36.4-46.3) fL Plt Count (182-369) K/mm3 MPV (9.4-12.3) fl Neut % (Auto) (34.0-71.1) % Lymph % (Auto) (19.3-51.7) % Day % (Auto) (4.7-12.5) % Eos % (Auto) (0.7-5.8) Baso % (Auto) (0.1-1.2) % Neut # (Auto) (1.56-6.13) K/mm3 Lymph # (Auto) (1.18-3.74) K/mm3 Day # (Auto) (0.24-0.36) K/mm3 Eos # (Auto) (0.04-0.36) K/mm3 Baso # (Auto) (0.01-0.08) K/mm3 Sodium (136-145) mEq/L Potassium (3.5-5.1) mEq/L Chloride (98-107) mEq/L Carbon Dioxide (21-32) mEq/L Anion Gap (5-15) BUN (7-18) mg/dL Creatinine TNP Est Cr Clr Drug Dosing mL/min Estimated GFR (MDRD) (>60) mL/min BUN/Creatinine Ratio (14-18) Glucose (70-99) mg/dL POC Glucose 133 H 155 H (70-99) mg/dL Calcium (8.5-10.1) mg/dL Magnesium (1.8-2.4) mg/dL Total Bilirubin AST TNP ALT TNP Alkaline Phosphatase C-Reactive Protein (<1.0) mg/dL Total Protein TNP Albumin Globulin Albumin/Globulin Ratio Triglycerides (<150) mg/dL 09/04/20 09/04/20 09/04/20 Range/Units 05:11 05:11 06:53 WBC 5.04 (3.98-10.04) K/mm3 RBC 5.03 (3.98-5.22) M/mm3 Hgb 15.5 D (11.2-15.7) gm/dl Hct 43.6 (34.1-44.9) % MCV 86.7 (79.4-94.8) fl MCH 30.8 (25.6-32.2) pg MCHC 35.6 H (32.2-35.5) g/dl RDW Std Deviation 42.8 (36.4-46.3) fL Plt Count 196 D (182-369) K/mm3 MPV 10.2 (9.4-12.3) fl Neut % (Auto) 77.8 H (34.0-71.1) % Lymph % (Auto) 14.1 L (19.3-51.7) % Day % (Auto) 7.9 (4.7-12.5) % Eos % (Auto) 0 L (0.7-5.8) Baso % (Auto) 0.2 (0.1-1.2) % Neut # (Auto) 3.92 (1.56-6.13) K/mm3 Lymph # (Auto) 0.71 L (1.18-3.74) K/mm3 Day # (Auto) 0.40 H (0.24-0.36) K/mm3 Eos # (Auto) 0.00 L (0.04-0.36) K/mm3 Baso # (Auto) 0.01 (0.01-0.08) K/mm3 Sodium 137 (136-145) mEq/L Potassium 3.6 (3.5-5.1) mEq/L Chloride 105 (98-107) mEq/L Carbon Dioxide 12 L D (21-32) mEq/L Anion Gap 23.6 H (5-15) BUN 10 (7-18) mg/dL Creatinine 0.6 Est Cr Clr Drug Dosing 78.86 mL/min Estimated GFR (MDRD) > 60 (>60) mL/min BUN/Creatinine Ratio 16.7 (14-18) Glucose 171 H (70-99) mg/dL POC Glucose 140 H (70-99) mg/dL Calcium 6.3 L (8.5-10.1) mg/dL Magnesium 1.7 L (1.8-2.4) mg/dL Total Bilirubin Cancelled AST Cancelled ALT Cancelled Alkaline Phosphatase Cancelled C-Reactive Protein 1.6 H* (<1.0) mg/dL Total Protein Cancelled Albumin Cancelled Globulin Cancelled Albumin/Globulin Ratio Cancelled Triglycerides (<150) mg/dL 09/04/20 09/04/20 09/04/20 Range/Units 11:11 12:13 13:07 WBC (3.98-10.04) K/mm3 RBC (3.98-5.22) M/mm3 Hgb (11.2-15.7) gm/dl Hct (34.1-44.9) % MCV (79.4-94.8) fl MCH (25.6-32.2) pg MCHC (32.2-35.5) g/dl RDW Std Deviation (36.4-46.3) fL Plt Count (182-369) K/mm3 MPV (9.4-12.3) fl Neut % (Auto) (34.0-71.1) % Lymph % (Auto) (19.3-51.7) % Day % (Auto) (4.7-12.5) % Eos % (Auto) (0.7-5.8) Baso % (Auto) (0.1-1.2) % Neut # (Auto) (1.56-6.13) K/mm3 Lymph # (Auto) (1.18-3.74) K/mm3 Day # (Auto) (0.24-0.36) K/mm3 Eos # (Auto) (0.04-0.36) K/mm3 Baso # (Auto) (0.01-0.08) K/mm3 Sodium (136-145) mEq/L Potassium (3.5-5.1) mEq/L Chloride (98-107) mEq/L Carbon Dioxide (21-32) mEq/L Anion Gap (5-15) BUN (7-18) mg/dL Creatinine Est Cr Clr Drug Dosing mL/min Estimated GFR (MDRD) (>60) mL/min BUN/Creatinine Ratio (14-18) Glucose (70-99) mg/dL POC Glucose 134 H 135 H (70-99) mg/dL Calcium (8.5-10.1) mg/dL Magnesium (1.8-2.4) mg/dL Total Bilirubin AST ALT Alkaline Phosphatase C-Reactive Protein (<1.0) mg/dL Total Protein Albumin Globulin Albumin/Globulin Ratio Triglycerides 988 H (<150) mg/dL 09/04/20 09/04/20 09/04/20 Range/Units 13:59 15:10 16:09 WBC (3.98-10.04) K/mm3 RBC (3.98-5.22) M/mm3 Hgb (11.2-15.7) gm/dl Hct (34.1-44.9) % MCV (79.4-94.8) fl MCH (25.6-32.2) pg MCHC (32.2-35.5) g/dl RDW Std Deviation (36.4-46.3) fL Plt Count (182-369) K/mm3 MPV (9.4-12.3) fl Neut % (Auto) (34.0-71.1) % Lymph % (Auto) (19.3-51.7) % Day % (Auto) (4.7-12.5) % Eos % (Auto) (0.7-5.8) Baso % (Auto) (0.1-1.2) % Neut # (Auto) (1.56-6.13) K/mm3 Lymph # (Auto) (1.18-3.74) K/mm3 Day # (Auto) (0.24-0.36) K/mm3 Eos # (Auto) (0.04-0.36) K/mm3 Baso # (Auto) (0.01-0.08) K/mm3 Sodium (136-145) mEq/L Potassium (3.5-5.1) mEq/L Chloride (98-107) mEq/L Carbon Dioxide (21-32) mEq/L Anion Gap (5-15) BUN (7-18) mg/dL Creatinine Est Cr Clr Drug Dosing mL/min Estimated GFR (MDRD) (>60) mL/min BUN/Creatinine Ratio (14-18) Glucose (70-99) mg/dL POC Glucose 119 H 109 H 84 (70-99) mg/dL Calcium (8.5-10.1) mg/dL Magnesium (1.8-2.4) mg/dL Total Bilirubin AST ALT Alkaline Phosphatase C-Reactive Protein (<1.0) mg/dL Total Protein Albumin Globulin Albumin/Globulin Ratio Triglycerides (<150) mg/dL Med Orders - Current: Current Medications Acetaminophen (Acetaminophen 325 Mg Tab) 650 mg PO Q6H PRN PRN Reason: Pain (mild 1-3) Enoxaparin Sodium (Enoxaparin 40 Mg/0.4 Ml Syringe) 40 mg SUBCUT DAILY [facility] Last Admin: 09/04/20 08:48 Dose: 40 mg Documented by: Fenofibrate (Fenofibrate 54 Mg Tab) 54 mg PO DAILY [facility] Last Admin: 09/04/20 08:49 Dose: 54 mg Documented by: Hydromorphone HCl (Hydromorphone 1 Mg/Ml Syringe) 2 mg IVPUSH Q4H PRN PRN Reason: Pain Last Admin: 09/04/20 05:32 Dose: 2 mg Documented by: Insulin Human Regular 100 unit (/ Sodium Chloride) 100 mls @ 8.405 mls/hr IV ASDIRECTED [facility] Last Admin: 09/04/20 12:10 Dose: 0.1 units/kg/hr, 8.405 mls/hr Documented by: Dextrose/Sodium Chloride (Dextrose 5%-Normal Saline) 1,000 mls @ 150 mls/hr IV ASDIRECTED [facility] Last Admin: 09/04/20 16:24 Dose: 150 mls/hr Documented by: Sodium Chloride (Normal Saline) 1,000 mls @ 200 mls/hr IV ASDIRECTED [facility] Last Admin: 09/04/20 16:24 Dose: 200 mls/hr Documented by: Ondansetron HCl (Ondansetron 4 Mg/2 Ml Sdv) 4 mg IV Q6H PRN PRN Reason: Nausea/Vomiting Last Admin: 09/04/20 05:30 Dose: 4 mg Documented by: Oxycodone HCl (Oxycodone 5 Mg Tab) 10 mg PO Q6H PRN PRN Reason: Pain (moderate 4-6) Last Admin: 09/04/20 13:19 Dose: 10 mg Documented by: Rosuvastatin Calcium (Rosuvastatin 10 Mg Tab) 20 mg PO BEDTIME [facility] Last Admin: 09/03/20 21:16 Dose: 20 mg Documented by: Sodium Chloride (Sodium Chloride 0.9% 10 Ml Syringe) 10 ml FLUSH ASDIRECTED PRN PRN Reason: Keep Vein Open Discontinued Medications Dextrose/Water (50% Dextrose In Water 50 Ml Syringe) 50 ml IVPUSH ASDIRECTED ONE Stop: 09/04/20 16:13 Last Admin: 09/04/20 16:20 Dose: 50 ml Documented by: Hydromorphone HCl (Hydromorphone 0.5 Mg/0.5 Ml Syringe) 0.5 mg IVPUSH ONETIME ONE Stop: 09/03/20 14:37 Last Admin: 09/03/20 14:48 Dose: 0.5 mg Documented by: Hydromorphone HCl (Hydromorphone 1 Mg/Ml Syringe) 2 mg IVPUSH ONETIME ONE Stop: 09/03/20 19:01 Last Admin: 09/03/20 19:11 Dose: 2 mg Documented by: Hydromorphone HCl (Hydromorphone 1 Mg/Ml Syringe) Confirm Administered Dose 2 mg .ROUTE .STK-MED ONE Stop: 09/03/20 19:04 Last Admin: 09/03/20 19:11 Dose: Not Given Documented by: Sodium Chloride (Normal Saline) 1,000 mls @ 150 mls/hr IV ASDIRECTED [facility] Last Admin: 09/03/20 13:07 Dose: 150 mls/hr Documented by: Sodium Chloride (Normal Saline) 1,000 mls @ 250 mls/hr IV ASDIRECTED [facility] Last Admin: 09/04/20 12:15 Dose: 250 mls/hr Documented by: Dextrose/Sodium Chloride (Dextrose 5%-Normal Saline) 1,000 mls @ 100 mls/hr IV ASDIRECTED [facility] Last Admin: 09/04/20 12:15 Dose: 100 mls/hr Documented by: Magnesium Sulfate 2 gm/ Premix 50 mls @ 25 mls/hr IV ONETIME ONE Stop: 09/04/20 13:59 Last Admin: 09/04/20 12:10 Dose: 25 mls/hr Documented by: Morphine Sulfate (Morphine 2 Mg/Ml Syringe) 2 mg IVPUSH Q2H PRN PRN Reason: Pain (severe 7-10) Last Admin: 09/03/20 13:06 Dose: 2 mg Documented by: Morphine Sulfate (Morphine 4 Mg/Ml Syringe) 4 mg IVPUSH Q2H PRN PRN Reason: Pain (severe 7-10) Last Admin: 09/03/20 17:07 Dose: 4 mg Documented by: Ondansetron HCl (Ondansetron 4 Mg/2 Ml Sdv) 4 mg IVPUSH ONETIME ONE Stop: 09/03/20 14:39 Last Admin: 09/03/20 14:48 Dose: 4 mg Documented by: Oxycodone HCl (Oxycodone 5 Mg Tab) 5 mg PO Q6H PRN PRN Reason: Pain (moderate 4-6) Oxycodone HCl (Oxycodone 5 Mg Tab) 5 mg PO ONETIME ONE Stop: 09/03/20 14:40 Last Admin: 09/03/20 14:48 Dose: 5 mg Documented by: Rosuvastatin Calcium (Rosuvastatin 10 Mg Tab) 10 mg PO BEDTIME [facility] Rosuvastatin Calcium (Rosuvastatin 10 Mg Tab) 5 mg PO BEDTIME [facility] Sodium Chloride (Sodium Chloride 0.9% 10 Ml Syringe) 10 ml FLUSH ASDIRECTED PRN PRN Reason: Keep Vein Open - Patient Data Lab Results Last 24 hrs: Laboratory Results - last 24 hr 09/03/20 09/03/20 09/03/20 Range/Units 15:12 16:45 23:47 WBC (3.98-10.04) K/mm3 RBC (3.98-5.22) M/mm3 Hgb (11.2-15.7) gm/dl Hct (34.1-44.9) % MCV (79.4-94.8) fl MCH (25.6-32.2) pg MCHC (32.2-35.5) g/dl RDW Std Deviation (36.4-46.3) fL Plt Count (182-369) K/mm3 MPV (9.4-12.3) fl Neut % (Auto) (34.0-71.1) % Lymph % (Auto) (19.3-51.7) % Day % (Auto) (4.7-12.5) % Eos % (Auto) (0.7-5.8) Baso % (Auto) (0.1-1.2) % Neut # (Auto) (1.56-6.13) K/mm3 Lymph # (Auto) (1.18-3.74) K/mm3 Day # (Auto) (0.24-0.36) K/mm3 Eos # (Auto) (0.04-0.36) K/mm3 Baso # (Auto) (0.01-0.08) K/mm3 Sodium (136-145) mEq/L Potassium (3.5-5.1) mEq/L Chloride (98-107) mEq/L Carbon Dioxide (21-32) mEq/L Anion Gap (5-15) BUN (7-18) mg/dL Creatinine TNP Est Cr Clr Drug Dosing mL/min Estimated GFR (MDRD) (>60) mL/min BUN/Creatinine Ratio (14-18) Glucose (70-99) mg/dL POC Glucose 133 H 155 H (70-99) mg/dL Calcium (8.5-10.1) mg/dL Magnesium (1.8-2.4) mg/dL Total Bilirubin AST TNP ALT TNP Alkaline Phosphatase C-Reactive Protein (<1.0) mg/dL Total Protein TNP Albumin Globulin Albumin/Globulin Ratio Triglycerides (<150) mg/dL 09/04/20 09/04/20 09/04/20 Range/Units 05:11 05:11 06:53 WBC 5.04 (3.98-10.04) K/mm3 RBC 5.03 (3.98-5.22) M/mm3 Hgb 15.5 D (11.2-15.7) gm/dl Hct 43.6 (34.1-44.9) % MCV 86.7 (79.4-94.8) fl MCH 30.8 (25.6-32.2) pg MCHC 35.6 H (32.2-35.5) g/dl RDW Std Deviation 42.8 (36.4-46.3) fL Plt Count 196 D (182-369) K/mm3 MPV 10.2 (9.4-12.3) fl Neut % (Auto) 77.8 H (34.0-71.1) % Lymph % (Auto) 14.1 L (19.3-51.7) % Day % (Auto) 7.9 (4.7-12.5) % Eos % (Auto) 0 L (0.7-5.8) Baso % (Auto) 0.2 (0.1-1.2) % Neut # (Auto) 3.92 (1.56-6.13) K/mm3 Lymph # (Auto) 0.71 L (1.18-3.74) K/mm3 Day # (Auto) 0.40 H (0.24-0.36) K/mm3 Eos # (Auto) 0.00 L (0.04-0.36) K/mm3 Baso # (Auto) 0.01 (0.01-0.08) K/mm3 Sodium 137 (136-145) mEq/L Potassium 3.6 (3.5-5.1) mEq/L Chloride 105 (98-107) mEq/L Carbon Dioxide 12 L D (21-32) mEq/L Anion Gap 23.6 H (5-15) BUN 10 (7-18) mg/dL Creatinine 0.6 Est Cr Clr Drug Dosing 78.86 mL/min Estimated GFR (MDRD) > 60 (>60) mL/min BUN/Creatinine Ratio 16.7 (14-18) Glucose 171 H (70-99) mg/dL POC Glucose 140 H (70-99) mg/dL Calcium 6.3 L (8.5-10.1) mg/dL Magnesium 1.7 L (1.8-2.4) mg/dL Total Bilirubin Cancelled AST Cancelled ALT Cancelled Alkaline Phosphatase Cancelled C-Reactive Protein 1.6 H* (<1.0) mg/dL Total Protein Cancelled Albumin Cancelled Globulin Cancelled Albumin/Globulin Ratio Cancelled Triglycerides (<150) mg/dL 09/04/20 09/04/20 09/04/20 Range/Units 11:11 12:13 13:07 WBC (3.98-10.04) K/mm3 RBC (3.98-5.22) M/mm3 Hgb (11.2-15.7) gm/dl Hct (34.1-44.9) % MCV (79.4-94.8) fl MCH (25.6-32.2) pg MCHC (32.2-35.5) g/dl RDW Std Deviation (36.4-46.3) fL Plt Count (182-369) K/mm3 MPV (9.4-12.3) fl Neut % (Auto) (34.0-71.1) % Lymph % (Auto) (19.3-51.7) % Day % (Auto) (4.7-12.5) % Eos % (Auto) (0.7-5.8) Baso % (Auto) (0.1-1.2) % Neut # (Auto) (1.56-6.13) K/mm3 Lymph # (Auto) (1.18-3.74) K/mm3 Day # (Auto) (0.24-0.36) K/mm3 Eos # (Auto) (0.04-0.36) K/mm3 Baso # (Auto) (0.01-0.08) K/mm3 Sodium (136-145) mEq/L Potassium (3.5-5.1) mEq/L Chloride (98-107) mEq/L Carbon Dioxide (21-32) mEq/L Anion Gap (5-15) BUN (7-18) mg/dL Creatinine Est Cr Clr Drug Dosing mL/min Estimated GFR (MDRD) (>60) mL/min BUN/Creatinine Ratio (14-18) Glucose (70-99) mg/dL POC Glucose 134 H 135 H (70-99) mg/dL Calcium (8.5-10.1) mg/dL Magnesium (1.8-2.4) mg/dL Total Bilirubin AST ALT Alkaline Phosphatase C-Reactive Protein (<1.0) mg/dL Total Protein Albumin Globulin Albumin/Globulin Ratio Triglycerides 988 H (<150) mg/dL 09/04/20 09/04/20 09/04/20 Range/Units 13:59 15:10 16:09 WBC (3.98-10.04) K/mm3 RBC (3.98-5.22) M/mm3 Hgb (11.2-15.7) gm/dl Hct (34.1-44.9) % MCV (79.4-94.8) fl MCH (25.6-32.2) pg MCHC (32.2-35.5) g/dl RDW Std Deviation (36.4-46.3) fL Plt Count (182-369) K/mm3 MPV (9.4-12.3) fl Neut % (Auto) (34.0-71.1) % Lymph % (Auto) (19.3-51.7) % Day % (Auto) (4.7-12.5) % Eos % (Auto) (0.7-5.8) Baso % (Auto) (0.1-1.2) % Neut # (Auto) (1.56-6.13) K/mm3 Lymph # (Auto) (1.18-3.74) K/mm3 Day # (Auto) (0.24-0.36) K/mm3 Eos # (Auto) (0.04-0.36) K/mm3 Baso # (Auto) (0.01-0.08) K/mm3 Sodium (136-145) mEq/L Potassium (3.5-5.1) mEq/L Chloride (98-107) mEq/L Carbon Dioxide (21-32) mEq/L Anion Gap (5-15) BUN (7-18) mg/dL Creatinine Est Cr Clr Drug Dosing mL/min Estimated GFR (MDRD) (>60) mL/min BUN/Creatinine Ratio (14-18) Glucose (70-99) mg/dL POC Glucose 119 H 109 H 84 (70-99) mg/dL Calcium (8.5-10.1) mg/dL Magnesium (1.8-2.4) mg/dL Total Bilirubin AST ALT Alkaline Phosphatase C-Reactive Protein (<1.0) mg/dL Total Protein Albumin Globulin Albumin/Globulin Ratio Triglycerides (<150) mg/dL Result Diagrams: 09/04/20 06:53 09/04/20 05:11 Sepsis Event Note - Focused Exam Vital Signs: Vital Signs Temp Pulse Resp BP Pulse Ox 09/04/20 12:55 94 L 09/04/20 08:33 97.9 F 81 20 110/66 93 L 09/04/20 05:16 97.7 F 79 18 117/70 91 L - My Orders Last 24 Hours: My Active Orders 09/03/20 20:25 HYDROmorphone [Dilaudid] 2 mg IVPUSH Q4H PRN 09/03/20 21:00 Rosuvastatin [Crestor] 20 mg PO BEDTIME - Plan Plan:: Case discussed in full. Agree with evaluation, assessment and plan.
[2020-09-04] MEDS ORDERED: Dextrose 5%-0.9% NaCl 1,000 ML IV SCH (11:30)
[2020-09-04] MEDS ORDERED: Magnesium Sulfate/Water 2 GM in Premix Bag 1 BAG IV ONE (12:00)
[2020-09-04] MEDS: oxyCODONE 5 MG Tab PO PRN ×2 (13:19→20:01)
[2020-09-04] MEDS ORDERED: 50% Dextrose in Water 50 ML Syringe IVPUSH ONE ×2 (16:12→20:30)
[2020-09-04] MEDS: Dextrose 5%-0.9% NaCl 1,000 ML IV SCH ×2 (16:24→20:38)
[2020-09-04] MEDS: Rosuvastatin 10 MG Tab PO SCH (20:01)
[2020-09-05] MEDS ORDERED: Simethicone 80 MG Tab.Chew PO PRN (00:24)
[2020-09-05] MEDS: oxyCODONE 5 MG Tab PO PRN (02:03)
[2020-09-05] MEDS: Sodium Chloride 0.9% 1,000 ML IV SCH (03:13)
[2020-09-05] MEDS: Dextrose 5%-0.9% NaCl 1,000 ML IV SCH ×2 (03:14→09:43)
[2020-09-05] MEDS ORDERED: Furosemide 40 MG/4 ML VIAL IVPUSH ONE ×2 (06:22→13:00)
--- NOTE | 2020-09-05 07:22 | PCM.PN ---
<Aldair Richards - Last Filed: 09/05/20 10:33> - General Info Date of Service: 09/05/20 Admission Dx/Problem (Free Text): Admission Diagnosis/Problem Admission Diagnosis/Problem Abdominal pain Functional Status: Reports: Pain Controlled, Ambulating, Urinating. Denies: Tolerating Diet (NPO), New Symptoms - Review of Systems General: Reports: Weakness, Fatigue (didn't sleep much), Malaise. Denies: Fever, Chills HEENT: Reports: No Symptoms. Denies: Contact Lenses, Dysphasia, Ear Pain, Eye Pain, Headaches, Sore Throat Pulmonary: Reports: Shortness of Breath. Denies: Cough, Sputum, Wheezing Cardiovascular: Reports: Dyspnea on Exertion, Edema. Denies: Chest Pain, Palpitations Gastrointestinal: Reports: Abdominal Pain (epigastric - improved substantially). Denies: Constipation, Decreased Appetite, Diarrhea, Nausea, Vomiting Genitourinary: Reports: No Symptoms. Denies: Pain Musculoskeletal: Reports: No Symptoms Skin: Reports: No Symptoms Neurological: Reports: No Symptoms. Denies: Confusion, Pre-Existing Deficit, Difficulty Walking, Gait Disturbance Psychiatric: Reports: No Symptoms. Denies: Confusion - Patient Data Vitals - Most Recent: Last Vital Signs Temp 97.9 F 09/05/20 04:00 Pulse 91 09/05/20 04:00 Resp 20 09/05/20 04:00 BP 145/84 H 09/05/20 04:00 Pulse Ox 98 09/05/20 06:30 Weight - Most Recent: 200 lb I&O - Last 24 Hours: Intake & Output 09/04/20 09/05/20 09/05/20 22:59 06:59 14:59 Intake Total 1900 3620 Balance 1900 3620 Lab Results Last 24 Hours: Laboratory Results - last 24 hr 09/04/20 09/04/20 09/04/20 Range/Units 05:11 06:53 11:11 WBC 5.04 (3.98-10.04) K/mm3 RBC 5.03 (3.98-5.22) M/mm3 Hgb 15.5 D (11.2-15.7) gm/dl Hct 43.6 (34.1-44.9) % MCV 86.7 (79.4-94.8) fl MCH 30.8 (25.6-32.2) pg MCHC 35.6 H (32.2-35.5) g/dl RDW Std Deviation 42.8 (36.4-46.3) fL Plt Count 196 D (182-369) K/mm3 MPV 10.2 (9.4-12.3) fl Neut % (Auto) 77.8 H (34.0-71.1) % Lymph % (Auto) 14.1 L (19.3-51.7) % [place] % (Auto) 7.9 (4.7-12.5) % Eos % (Auto) 0 L (0.7-5.8) Baso % (Auto) 0.2 (0.1-1.2) % Neut # (Auto) 3.92 (1.56-6.13) K/mm3 Lymph # (Auto) 0.71 L (1.18-3.74) K/mm3 [place] # (Auto) 0.40 H (0.24-0.36) K/mm3 Eos # (Auto) 0.00 L (0.04-0.36) K/mm3 Baso # (Auto) 0.01 (0.01-0.08) K/mm3 Sodium 137 (136-145) mEq/L Potassium 3.6 (3.5-5.1) mEq/L Chloride 105 (98-107) mEq/L Carbon Dioxide 12 L D (21-32) mEq/L Anion Gap 23.6 H (5-15) BUN 10 (7-18) mg/dL Creatinine 0.6 (0.55-1.02) mg/dL Est Cr Clr Drug Dosing 78.86 mL/min Estimated GFR (MDRD) > 60 (>60) mL/min BUN/Creatinine Ratio 16.7 (14-18) Glucose 171 H (70-99) mg/dL POC Glucose (70-99) mg/dL Calcium 6.3 L (8.5-10.1) mg/dL Magnesium 1.7 L (1.8-2.4) mg/dL Total Bilirubin Cancelled AST Cancelled ALT Cancelled Alkaline Phosphatase Cancelled C-Reactive Protein 1.6 H* (<1.0) mg/dL Total Protein Cancelled Albumin Cancelled Globulin Cancelled Albumin/Globulin Ratio Cancelled Triglycerides 988 H (<150) mg/dL 09/04/20 09/04/20 09/04/20 Range/Units 12:13 13:07 13:59 WBC (3.98-10.04) K/mm3 RBC (3.98-5.22) M/mm3 Hgb (11.2-15.7) gm/dl Hct (34.1-44.9) % MCV (79.4-94.8) fl MCH (25.6-32.2) pg MCHC (32.2-35.5) g/dl RDW Std Deviation (36.4-46.3) fL Plt Count (182-369) K/mm3 MPV (9.4-12.3) fl Neut % (Auto) (34.0-71.1) % Lymph % (Auto) (19.3-51.7) % [place] % (Auto) (4.7-12.5) % Eos % (Auto) (0.7-5.8) Baso % (Auto) (0.1-1.2) % Neut # (Auto) (1.56-6.13) K/mm3 Lymph # (Auto) (1.18-3.74) K/mm3 [place] # (Auto) (0.24-0.36) K/mm3 Eos # (Auto) (0.04-0.36) K/mm3 Baso # (Auto) (0.01-0.08) K/mm3 Sodium (136-145) mEq/L Potassium (3.5-5.1) mEq/L Chloride (98-107) mEq/L Carbon Dioxide (21-32) mEq/L Anion Gap (5-15) BUN (7-18) mg/dL Creatinine (0.55-1.02) mg/dL Est Cr Clr Drug Dosing mL/min Estimated GFR (MDRD) (>60) mL/min BUN/Creatinine Ratio (14-18) Glucose (70-99) mg/dL POC Glucose 134 H 135 H 119 H (70-99) mg/dL Calcium (8.5-10.1) mg/dL Magnesium (1.8-2.4) mg/dL Total Bilirubin AST ALT Alkaline Phosphatase C-Reactive Protein (<1.0) mg/dL Total Protein Albumin Globulin Albumin/Globulin Ratio Triglycerides (<150) mg/dL 09/04/20 09/04/20 09/04/20 Range/Units 15:10 16:09 16:52 WBC (3.98-10.04) K/mm3 RBC (3.98-5.22) M/mm3 Hgb (11.2-15.7) gm/dl Hct (34.1-44.9) % MCV (79.4-94.8) fl MCH (25.6-32.2) pg MCHC (32.2-35.5) g/dl RDW Std Deviation (36.4-46.3) fL Plt Count (182-369) K/mm3 MPV (9.4-12.3) fl Neut % (Auto) (34.0-71.1) % Lymph % (Auto) (19.3-51.7) % [place] % (Auto) (4.7-12.5) % Eos % (Auto) (0.7-5.8) Baso % (Auto) (0.1-1.2) % Neut # (Auto) (1.56-6.13) K/mm3 Lymph # (Auto) (1.18-3.74) K/mm3 [place] # (Auto) (0.24-0.36) K/mm3 Eos # (Auto) (0.04-0.36) K/mm3 Baso # (Auto) (0.01-0.08) K/mm3 Sodium (136-145) mEq/L Potassium (3.5-5.1) mEq/L Chloride (98-107) mEq/L Carbon Dioxide (21-32) mEq/L Anion Gap (5-15) BUN (7-18) mg/dL Creatinine (0.55-1.02) mg/dL Est Cr Clr Drug Dosing mL/min Estimated GFR (MDRD) (>60) mL/min BUN/Creatinine Ratio (14-18) Glucose (70-99) mg/dL POC Glucose 109 H 84 165 H (70-99) mg/dL Calcium (8.5-10.1) mg/dL Magnesium (1.8-2.4) mg/dL Total Bilirubin AST ALT Alkaline Phosphatase C-Reactive Protein (<1.0) mg/dL Total Protein Albumin Globulin Albumin/Globulin Ratio Triglycerides (<150) mg/dL 09/04/20 09/04/20 09/04/20 Range/Units 18:00 18:53 19:58 WBC (3.98-10.04) K/mm3 RBC (3.98-5.22) M/mm3 Hgb (11.2-15.7) gm/dl Hct (34.1-44.9) % MCV (79.4-94.8) fl MCH (25.6-32.2) pg MCHC (32.2-35.5) g/dl RDW Std Deviation (36.4-46.3) fL Plt Count (182-369) K/mm3 MPV (9.4-12.3) fl Neut % (Auto) (34.0-71.1) % Lymph % (Auto) (19.3-51.7) % [place] % (Auto) (4.7-12.5) % Eos % (Auto) (0.7-5.8) Baso % (Auto) (0.1-1.2) % Neut # (Auto) (1.56-6.13) K/mm3 Lymph # (Auto) (1.18-3.74) K/mm3 [place] # (Auto) (0.24-0.36) K/mm3 Eos # (Auto) (0.04-0.36) K/mm3 Baso # (Auto) (0.01-0.08) K/mm3 Sodium (136-145) mEq/L Potassium (3.5-5.1) mEq/L Chloride (98-107) mEq/L Carbon Dioxide (21-32) mEq/L Anion Gap (5-15) BUN (7-18) mg/dL Creatinine (0.55-1.02) mg/dL Est Cr Clr Drug Dosing mL/min Estimated GFR (MDRD) (>60) mL/min BUN/Creatinine Ratio (14-18) Glucose (70-99) mg/dL POC Glucose 107 H 115 H 92 (70-99) mg/dL Calcium (8.5-10.1) mg/dL Magnesium (1.8-2.4) mg/dL Total Bilirubin AST ALT Alkaline Phosphatase C-Reactive Protein (<1.0) mg/dL Total Protein Albumin Globulin Albumin/Globulin Ratio Triglycerides (<150) mg/dL 09/04/20 09/04/2021 Range/Units 21:03 21:16 22:03 WBC (3.98-10.04) K/mm3 RBC (3.98-5.22) M/mm3 Hgb (11.2-15.7) gm/dl Hct (34.1-44.9) % MCV (79.4-94.8) fl MCH (25.6-32.2) pg MCHC (32.2-35.5) g/dl RDW Std Deviation (36.4-46.3) fL Plt Count (182-369) K/mm3 MPV (9.4-12.3) fl Neut % (Auto) (34.0-71.1) % Lymph % (Auto) (19.3-51.7) % [place] % (Auto) (4.7-12.5) % Eos % (Auto) (0.7-5.8) Baso % (Auto) (0.1-1.2) % Neut # (Auto) (1.56-6.13) K/mm3 Lymph # (Auto) (1.18-3.74) K/mm3 [place] # (Auto) (0.24-0.36) K/mm3 Eos # (Auto) (0.04-0.36) K/mm3 Baso # (Auto) (0.01-0.08) K/mm3 Sodium (136-145) mEq/L Potassium (3.5-5.1) mEq/L Chloride (98-107) mEq/L Carbon Dioxide (21-32) mEq/L Anion Gap (5-15) BUN (7-18) mg/dL Creatinine (0.55-1.02) mg/dL Est Cr Clr Drug Dosing mL/min Estimated GFR (MDRD) (>60) mL/min BUN/Creatinine Ratio (14-18) Glucose (70-99) mg/dL POC Glucose 175 H 135 H (70-99) mg/dL Calcium (8.5-10.1) mg/dL Magnesium (1.8-2.4) mg/dL Total Bilirubin AST ALT Alkaline Phosphatase C-Reactive Protein (<1.0) mg/dL Total Protein Albumin Globulin Albumin/Globulin Ratio Triglycerides 594 H (<150) mg/dL 09/04/20 09/05/20 09/05/20 Range/Units 23:09 00:14 01:06 WBC (3.98-10.04) K/mm3 RBC (3.98-5.22) M/mm3 Hgb (11.2-15.7) gm/dl Hct (34.1-44.9) % MCV (79.4-94.8) fl MCH (25.6-32.2) pg MCHC (32.2-35.5) g/dl RDW Std Deviation (36.4-46.3) fL Plt Count (182-369) K/mm3 MPV (9.4-12.3) fl Neut % (Auto) (34.0-71.1) % Lymph % (Auto) (19.3-51.7) % [place] % (Auto) (4.7-12.5) % Eos % (Auto) (0.7-5.8) Baso % (Auto) (0.1-1.2) % Neut # (Auto) (1.56-6.13) K/mm3 Lymph # (Auto) (1.18-3.74) K/mm3 [place] # (Auto) (0.24-0.36) K/mm3 Eos # (Auto) (0.04-0.36) K/mm3 Baso # (Auto) (0.01-0.08) K/mm3 Sodium (136-145) mEq/L Potassium (3.5-5.1) mEq/L Chloride (98-107) mEq/L Carbon Dioxide (21-32) mEq/L Anion Gap (5-15) BUN (7-18) mg/dL Creatinine (0.55-1.02) mg/dL Est Cr Clr Drug Dosing mL/min Estimated GFR (MDRD) (>60) mL/min BUN/Creatinine Ratio (14-18) Glucose (70-99) mg/dL POC Glucose 125 H 119 H 105 H (70-99) mg/dL Calcium (8.5-10.1) mg/dL Magnesium (1.8-2.4) mg/dL Total Bilirubin AST ALT Alkaline Phosphatase C-Reactive Protein (<1.0) mg/dL Total Protein Albumin Globulin Albumin/Globulin Ratio Triglycerides (<150) mg/dL 09/05/20 09/05/20 09/05/20 Range/Units 01:59 03:07 04:06 WBC (3.98-10.04) K/mm3 RBC (3.98-5.22) M/mm3 Hgb (11.2-15.7) gm/dl Hct (34.1-44.9) % MCV (79.4-94.8) fl MCH (25.6-32.2) pg MCHC (32.2-35.5) g/dl RDW Std Deviation (36.4-46.3) fL Plt Count (182-369) K/mm3 MPV (9.4-12.3) fl Neut % (Auto) (34.0-71.1) % Lymph % (Auto) (19.3-51.7) % [place] % (Auto) (4.7-12.5) % Eos % (Auto) (0.7-5.8) Baso % (Auto) (0.1-1.2) % Neut # (Auto) (1.56-6.13) K/mm3 Lymph # (Auto) (1.18-3.74) K/mm3 [place] # (Auto) (0.24-0.36) K/mm3 Eos # (Auto) (0.04-0.36) K/mm3 Baso # (Auto) (0.01-0.08) K/mm3 Sodium (136-145) mEq/L Potassium (3.5-5.1) mEq/L Chloride (98-107) mEq/L Carbon Dioxide (21-32) mEq/L Anion Gap (5-15) BUN (7-18) mg/dL Creatinine (0.55-1.02) mg/dL Est Cr Clr Drug Dosing mL/min Estimated GFR (MDRD) (>60) mL/min BUN/Creatinine Ratio (14-18) Glucose (70-99) mg/dL POC Glucose 114 H 110 H 109 H (70-99) mg/dL Calcium (8.5-10.1) mg/dL Magnesium (1.8-2.4) mg/dL Total Bilirubin AST ALT Alkaline Phosphatase C-Reactive Protein (<1.0) mg/dL Total Protein Albumin Globulin Albumin/Globulin Ratio Triglycerides (<150) mg/dL 07/09/21 07/09/21 07/09/21 Range/Units 05:06 06:12 06:39 WBC 6.47 (3.98-10.04) K/mm3 RBC 4.41 (3.98-5.22) M/mm3 Hgb 13.5 D (11.2-15.7) gm/dl Hct 39.3 (34.1-44.9) % MCV 89.1 (79.4-94.8) fl MCH 30.6 (25.6-32.2) pg MCHC 34.4 (32.2-35.5) g/dl RDW Std Deviation 47.3 H (36.4-46.3) fL Plt Count 194 (182-369) K/mm3 MPV 10.3 (9.4-12.3) fl Neut % (Auto) 74.1 H (34.0-71.1) % Lymph % (Auto) 15.8 L (19.3-51.7) % [place] % (Auto) 9.4 (4.7-12.5) % Eos % (Auto) 0.2 L (0.7-5.8) Baso % (Auto) 0.2 (0.1-1.2) % Neut # (Auto) 4.80 (1.56-6.13) K/mm3 Lymph # (Auto) 1.02 L (1.18-3.74) K/mm3 [place] # (Auto) 0.61 H (0.24-0.36) K/mm3 Eos # (Auto) 0.01 L (0.04-0.36) K/mm3 Baso # (Auto) 0.01 (0.01-0.08) K/mm3 Sodium (136-145) mEq/L Potassium (3.5-5.1) mEq/L Chloride (98-107) mEq/L Carbon Dioxide (21-32) mEq/L Anion Gap (5-15) BUN (7-18) mg/dL Creatinine (0.55-1.02) mg/dL Est Cr Clr Drug Dosing mL/min Estimated GFR (MDRD) (>60) mL/min BUN/Creatinine Ratio (14-18) Glucose (70-99) mg/dL POC Glucose 115 H 110 H (70-99) mg/dL Calcium (8.5-10.1) mg/dL Magnesium (1.8-2.4) mg/dL Total Bilirubin AST ALT Alkaline Phosphatase C-Reactive Protein (<1.0) mg/dL Total Protein Albumin Globulin Albumin/Globulin Ratio Triglycerides (<150) mg/dL 09/05/20 Range/Units 06:39 WBC (3.98-10.04) K/mm3 RBC (3.98-5.22) M/mm3 Hgb (11.2-15.7) gm/dl Hct (34.1-44.9) % MCV (79.4-94.8) fl MCH (25.6-32.2) pg MCHC (32.2-35.5) g/dl RDW Std Deviation (36.4-46.3) fL Plt Count (182-369) K/mm3 MPV (9.4-12.3) fl Neut % (Auto) (34.0-71.1) % Lymph % (Auto) (19.3-51.7) % [place] % (Auto) (4.7-12.5) % Eos % (Auto) (0.7-5.8) Baso % (Auto) (0.1-1.2) % Neut # (Auto) (1.56-6.13) K/mm3 Lymph # (Auto) (1.18-3.74) K/mm3 [place] # (Auto) (0.24-0.36) K/mm3 Eos # (Auto) (0.04-0.36) K/mm3 Baso # (Auto) (0.01-0.08) K/mm3 Sodium 141 (136-145) mEq/L Potassium 3.3 L (3.5-5.1) mEq/L Chloride 110 H (98-107) mEq/L Carbon Dioxide 19 L (21-32) mEq/L Anion Gap 15.3 H (5-15) BUN 7 (7-18) mg/dL Creatinine 0.6 (0.55-1.02) mg/dL Est Cr Clr Drug Dosing 78.18 mL/min Estimated GFR (MDRD) > 60 (>60) mL/min BUN/Creatinine Ratio 11.7 L (14-18) Glucose 127 H (70-99) mg/dL POC Glucose (70-99) mg/dL Calcium (8.5-10.1) mg/dL Magnesium 2.0 (1.8-2.4) mg/dL Total Bilirubin 0.3 AST 23 ALT 61 H Alkaline Phosphatase 36 L C-Reactive Protein (<1.0) mg/dL Total Protein 5.1 L Albumin 2.1 L Globulin 3.0 Albumin/Globulin Ratio 0.7 L Triglycerides (<150) mg/dL Med Orders - Current: Current Medications Acetaminophen (Acetaminophen 325 Mg Tab) 650 mg PO Q6H PRN PRN Reason: Pain (mild 1-3) Enoxaparin Sodium (Enoxaparin 40 Mg/0.4 Ml Syringe) 40 mg SUBCUT DAILY [facility] Last Admin: 09/04/20 08:48 Dose: 40 mg Documented by: Fenofibrate (Fenofibrate 54 Mg Tab) 54 mg PO DAILY [facility] Last Admin: 09/04/20 08:49 Dose: 54 mg Documented by: Hydromorphone HCl (Hydromorphone 1 Mg/Ml Syringe) 2 mg IVPUSH Q4H PRN PRN Reason: Pain Last Admin: 09/04/20 16:39 Dose: 2 mg Documented by: Insulin Human Regular 100 unit (/ Sodium Chloride) 100 mls @ 4.203 mls/hr IV ASDIRECTED [facility] Last Infusion: 09/04/20 20:25 Dose: 0.02 units/kg/hr, 1.681 mls/hr Documented by: Dextrose/Sodium Chloride (Dextrose 5%-Normal Saline) 1,000 mls @ 150 mls/hr IV ASDIRECTED [facility] Last Admin: 09/05/20 03:14 Dose: 150 mls/hr Documented by: Potassium Chloride 10 meq/ (Premix) 100 mls @ 100 mls/hr IV Q1H [facility] Stop: 09/05/20 11:29 Ondansetron HCl (Ondansetron 4 Mg/2 Ml Sdv) 4 mg IV Q6H PRN PRN Reason: Nausea/Vomiting Last Admin: 09/04/20 05:30 Dose: 4 mg Documented by: Oxycodone HCl (Oxycodone 5 Mg Tab) 10 mg PO Q6H PRN PRN Reason: Pain (moderate 4-6) Last Admin: 09/05/20 02:03 Dose: 10 mg Documented by: Rosuvastatin Calcium (Rosuvastatin 10 Mg Tab) 20 mg PO BEDTIME [facility] Last Admin: 09/04/20 20:01 Dose: 20 mg Documented by: Simethicone (Simethicone 80 Mg Tab.Chew) 80 mg PO Q6H PRN PRN Reason: Gas Last Admin: 09/05/20 00:36 Dose: 80 mg Documented by: Sodium Chloride (Sodium Chloride 0.9% 10 Ml Syringe) 10 ml FLUSH ASDIRECTED PRN PRN Reason: Keep Vein Open Discontinued Medications Dextrose/Water (50% Dextrose In Water 50 Ml Syringe) 50 ml IVPUSH ASDIRECTED ONE Stop: 09/04/20 16:13 Last Admin: 09/04/20 16:20 Dose: 50 ml Documented by: Dextrose/Water (50% Dextrose In Water 50 Ml Syringe) 50 ml IVPUSH ASDIRECTED ONE Stop: 09/04/20 20:31 Last Admin: 09/04/20 20:41 Dose: 50 ml Documented by: Furosemide (Furosemide 40 Mg/4 Ml Vial) 40 mg IVPUSH NOW ONE Stop: 09/05/20 06:23 Last Admin: 09/05/20 06:46 Dose: 40 mg Documented by: Hydromorphone HCl (Hydromorphone 0.5 Mg/0.5 Ml Syringe) 0.5 mg IVPUSH ONETIME ONE Stop: 09/03/20 14:37 Last Admin: 09/03/20 14:48 Dose: 0.5 mg Documented by: Hydromorphone HCl (Hydromorphone 1 Mg/Ml Syringe) 2 mg IVPUSH ONETIME ONE Stop: 09/03/20 19:01 Last Admin: 09/03/20 19:11 Dose: 2 mg Documented by: Hydromorphone HCl (Hydromorphone 1 Mg/Ml Syringe) Confirm Administered Dose 2 mg .ROUTE .STK-MED ONE Stop: 09/03/20 19:04 Last Admin: 09/03/20 19:11 Dose: Not Given Documented by: Sodium Chloride (Normal Saline) 1,000 mls @ 150 mls/hr IV ASDIRECTED [facility] Last Admin: 09/03/20 13:07 Dose: 150 mls/hr Documented by: Sodium Chloride (Normal Saline) 1,000 mls @ 250 mls/hr IV ASDIRECTED [facility] Last Admin: 09/04/20 12:15 Dose: 250 mls/hr Documented by: Dextrose/Sodium Chloride (Dextrose 5%-Normal Saline) 1,000 mls @ 100 mls/hr IV ASDIRECTED [facility] Last Admin: 09/04/20 12:15 Dose: 100 mls/hr Documented by: Magnesium Sulfate 2 gm/ Premix 50 mls @ 25 mls/hr IV ONETIME ONE Stop: 09/04/20 13:59 Last Admin: 09/04/20 12:10 Dose: 25 mls/hr Documented by: Sodium Chloride (Normal Saline) 1,000 mls @ 200 mls/hr IV ASDIRECTED [facility] Last Admin: 09/05/20 03:13 Dose: 200 mls/hr Documented by: Morphine Sulfate (Morphine 2 Mg/Ml Syringe) 2 mg IVPUSH Q2H PRN PRN Reason: Pain (severe 7-10) Last Admin: 09/03/20 13:06 Dose: 2 mg Documented by: Morphine Sulfate (Morphine 4 Mg/Ml Syringe) 4 mg IVPUSH Q2H PRN PRN Reason: Pain (severe 7-10) Last Admin: 09/03/20 17:07 Dose: 4 mg Documented by: Ondansetron HCl (Ondansetron 4 Mg/2 Ml Sdv) 4 mg IVPUSH ONETIME ONE Stop: 09/03/20 14:39 Last Admin: 09/03/20 14:48 Dose: 4 mg Documented by: Oxycodone HCl (Oxycodone 5 Mg Tab) 5 mg PO Q6H PRN PRN Reason: Pain (moderate 4-6) Oxycodone HCl (Oxycodone 5 Mg Tab) 5 mg PO ONETIME ONE Stop: 09/03/20 14:40 Last Admin: 09/03/20 14:48 Dose: 5 mg Documented by: Rosuvastatin Calcium (Rosuvastatin 10 Mg Tab) 10 mg PO BEDTIME [facility] Rosuvastatin Calcium (Rosuvastatin 10 Mg Tab) 5 mg PO BEDTIME [facility] Sodium Chloride (Sodium Chloride 0.9% 10 Ml Syringe) 10 ml FLUSH ASDIRECTED PRN PRN Reason: Keep Vein Open - Exam Quality Assessment: Supplemental Oxygen (2L), DVT Prophylaxis. No: Urine Catheter General: Alert, Oriented, Cooperative, No Acute Distress HEENT: Pupils Equal, Pupils Reactive, Mucous Membr. Moist/Christine Neck: Supple, Trachea Midline Lungs: Normal Respiratory Effort, Rhonchi Cardiovascular: Regular Rate, Regular Rhythm GI/Abdominal Exam: Normal Bowel Sounds, Soft, No Distention, Tender (mild epigastric pain) (Female) Exam: Deferred Back Exam: Normal Inspection, Full Range of Motion Extremities: Normal Inspection, Normal Range of Motion, Non-Tender, Normal Capillary Refill, Pedal Edema (3+) Peripheral Pulses: 3+: Radial (L), Radial (R) Skin: Warm, Dry, Intact Neurological: No New Focal Deficit Psy/Mental Status: Alert, Normal Affect, Normal Mood - Patient Data Lab Results Last 24 hrs: Laboratory Results - last 24 hr 09/04/20 09/04/20 09/04/20 Range/Units 05:11 06:53 11:11 WBC 5.04 (3.98-10.04) K/mm3 RBC 5.03 (3.98-5.22) M/mm3 Hgb 15.5 D (11.2-15.7) gm/dl Hct 43.6 (34.1-44.9) % MCV 86.7 (79.4-94.8) fl MCH 30.8 (25.6-32.2) pg MCHC 35.6 H (32.2-35.5) g/dl RDW Std Deviation 42.8 (36.4-46.3) fL Plt Count 196 D (182-369) K/mm3 MPV 10.2 (9.4-12.3) fl Neut % (Auto) 77.8 H (34.0-71.1) % Lymph % (Auto) 14.1 L (19.3-51.7) % [place] % (Auto) 7.9 (4.7-12.5) % Eos % (Auto) 0 L (0.7-5.8) Baso % (Auto) 0.2 (0.1-1.2) % Neut # (Auto) 3.92 (1.56-6.13) K/mm3 Lymph # (Auto) 0.71 L (1.18-3.74) K/mm3 [place] # (Auto) 0.40 H (0.24-0.36) K/mm3 Eos # (Auto) 0.00 L (0.04-0.36) K/mm3 Baso # (Auto) 0.01 (0.01-0.08) K/mm3 Sodium 137 (136-145) mEq/L Potassium 3.6 (3.5-5.1) mEq/L Chloride 105 (98-107) mEq/L Carbon Dioxide 12 L D (21-32) mEq/L Anion Gap 23.6 H (5-15) BUN 10 (7-18) mg/dL Creatinine 0.6 (0.55-1.02) mg/dL Est Cr Clr Drug Dosing 78.86 mL/min Estimated GFR (MDRD) > 60 (>60) mL/min BUN/Creatinine Ratio 16.7 (14-18) Glucose 171 H (70-99) mg/dL POC Glucose (70-99) mg/dL Calcium 6.3 L (8.5-10.1) mg/dL Magnesium 1.7 L (1.8-2.4) mg/dL Total Bilirubin Cancelled AST Cancelled ALT Cancelled Alkaline Phosphatase Cancelled C-Reactive Protein 1.6 H* (<1.0) mg/dL Total Protein Cancelled Albumin Cancelled Globulin Cancelled Albumin/Globulin Ratio Cancelled Triglycerides 988 H (<150) mg/dL 09/04/20 09/04/20 09/04/20 Range/Units 12:13 13:07 13:59 WBC (3.98-10.04) K/mm3 RBC (3.98-5.22) M/mm3 Hgb (11.2-15.7) gm/dl Hct (34.1-44.9) % MCV (79.4-94.8) fl MCH (25.6-32.2) pg MCHC (32.2-35.5) g/dl RDW Std Deviation (36.4-46.3) fL Plt Count (182-369) K/mm3 MPV (9.4-12.3) fl Neut % (Auto) (34.0-71.1) % Lymph % (Auto) (19.3-51.7) % [place] % (Auto) (4.7-12.5) % Eos % (Auto) (0.7-5.8) Baso % (Auto) (0.1-1.2) % Neut # (Auto) (1.56-6.13) K/mm3 Lymph # (Auto) (1.18-3.74) K/mm3 [place] # (Auto) (0.24-0.36) K/mm3 Eos # (Auto) (0.04-0.36) K/mm3 Baso # (Auto) (0.01-0.08) K/mm3 Sodium (136-145) mEq/L Potassium (3.5-5.1) mEq/L Chloride (98-107) mEq/L Carbon Dioxide (21-32) mEq/L Anion Gap (5-15) BUN (7-18) mg/dL Creatinine (0.55-1.02) mg/dL Est Cr Clr Drug Dosing mL/min Estimated GFR (MDRD) (>60) mL/min BUN/Creatinine Ratio (14-18) Glucose (70-99) mg/dL POC Glucose 134 H 135 H 119 H (70-99) mg/dL Calcium (8.5-10.1) mg/dL Magnesium (1.8-2.4) mg/dL Total Bilirubin AST ALT Alkaline Phosphatase C-Reactive Protein (<1.0) mg/dL Total Protein Albumin Globulin Albumin/Globulin Ratio Triglycerides (<150) mg/dL 09/04/20 09/04/20 09/04/20 Range/Units 15:10 16:09 16:52 WBC (3.98-10.04) K/mm3 RBC (3.98-5.22) M/mm3 Hgb (11.2-15.7) gm/dl Hct (34.1-44.9) % MCV (79.4-94.8) fl MCH (25.6-32.2) pg MCHC (32.2-35.5) g/dl RDW Std Deviation (36.4-46.3) fL Plt Count (182-369) K/mm3 MPV (9.4-12.3) fl Neut % (Auto) (34.0-71.1) % Lymph % (Auto) (19.3-51.7) % [place] % (Auto) (4.7-12.5) % Eos % (Auto) (0.7-5.8) Baso % (Auto) (0.1-1.2) % Neut # (Auto) (1.56-6.13) K/mm3 Lymph # (Auto) (1.18-3.74) K/mm3 [place] # (Auto) (0.24-0.36) K/mm3 Eos # (Auto) (0.04-0.36) K/mm3 Baso # (Auto) (0.01-0.08) K/mm3 Sodium (136-145) mEq/L Potassium (3.5-5.1) mEq/L Chloride (98-107) mEq/L Carbon Dioxide (21-32) mEq/L Anion Gap (5-15) BUN (7-18) mg/dL Creatinine (0.55-1.02) mg/dL Est Cr Clr Drug Dosing mL/min Estimated GFR (MDRD) (>60) mL/min BUN/Creatinine Ratio (14-18) Glucose (70-99) mg/dL POC Glucose 109 H 84 165 H (70-99) mg/dL Calcium (8.5-10.1) mg/dL Magnesium (1.8-2.4) mg/dL Total Bilirubin AST ALT Alkaline Phosphatase C-Reactive Protein (<1.0) mg/dL Total Protein Albumin Globulin Albumin/Globulin Ratio Triglycerides (<150) mg/dL 09/04/20 09/04/20 09/04/20 Range/Units 18:00 18:53 19:58 WBC (3.98-10.04) K/mm3 RBC (3.98-5.22) M/mm3 Hgb (11.2-15.7) gm/dl Hct (34.1-44.9) % MCV (79.4-94.8) fl MCH (25.6-32.2) pg MCHC (32.2-35.5) g/dl RDW Std Deviation (36.4-46.3) fL Plt Count (182-369) K/mm3 MPV (9.4-12.3) fl Neut % (Auto) (34.0-71.1) % Lymph % (Auto) (19.3-51.7) % [place] % (Auto) (4.7-12.5) % Eos % (Auto) (0.7-5.8) Baso % (Auto) (0.1-1.2) % Neut # (Auto) (1.56-6.13) K/mm3 Lymph # (Auto) (1.18-3.74) K/mm3 [place] # (Auto) (0.24-0.36) K/mm3 Eos # (Auto) (0.04-0.36) K/mm3 Baso # (Auto) (0.01-0.08) K/mm3 Sodium (136-145) mEq/L Potassium (3.5-5.1) mEq/L Chloride (98-107) mEq/L Carbon Dioxide (21-32) mEq/L Anion Gap (5-15) BUN (7-18) mg/dL Creatinine (0.55-1.02) mg/dL Est Cr Clr Drug Dosing mL/min Estimated GFR (MDRD) (>60) mL/min BUN/Creatinine Ratio (14-18) Glucose (70-99) mg/dL POC Glucose 107 H 115 H 92 (70-99) mg/dL Calcium (8.5-10.1) mg/dL Magnesium (1.8-2.4) mg/dL Total Bilirubin AST ALT Alkaline Phosphatase C-Reactive Protein (<1.0) mg/dL Total Protein Albumin Globulin Albumin/Globulin Ratio Triglycerides (<150) mg/dL 09/04/20 09/04/20 09/04/20 Range/Units 21:03 21:16 22:03 WBC (3.98-10.04) K/mm3 RBC (3.98-5.22) M/mm3 Hgb (11.2-15.7) gm/dl Hct (34.1-44.9) % MCV (79.4-94.8) fl MCH (25.6-32.2) pg MCHC (32.2-35.5) g/dl RDW Std Deviation (36.4-46.3) fL Plt Count (182-369) K/mm3 MPV (9.4-12.3) fl Neut % (Auto) (34.0-71.1) % Lymph % (Auto) (19.3-51.7) % [place] % (Auto) (4.7-12.5) % Eos % (Auto) (0.7-5.8) Baso % (Auto) (0.1-1.2) % Neut # (Auto) (1.56-6.13) K/mm3 Lymph # (Auto) (1.18-3.74) K/mm3 [place] # (Auto) (0.24-0.36) K/mm3 Eos # (Auto) (0.04-0.36) K/mm3 Baso # (Auto) (0.01-0.08) K/mm3 Sodium (136-145) mEq/L Potassium (3.5-5.1) mEq/L Chloride (98-107) mEq/L Carbon Dioxide (21-32) mEq/L Anion Gap (5-15) BUN (7-18) mg/dL Creatinine (0.55-1.02) mg/dL Est Cr Clr Drug Dosing mL/min Estimated GFR (MDRD) (>60) mL/min BUN/Creatinine Ratio (14-18) Glucose (70-99) mg/dL POC Glucose 175 H 135 H (70-99) mg/dL Calcium (8.5-10.1) mg/dL Magnesium (1.8-2.4) mg/dL Total Bilirubin AST ALT Alkaline Phosphatase C-Reactive Protein (<1.0) mg/dL Total Protein Albumin Globulin Albumin/Globulin Ratio Triglycerides 594 H (<150) mg/dL 09/04/20 09/05/20 09/05/20 Range/Units 23:09 00:14 01:06 WBC (3.98-10.04) K/mm3 RBC (3.98-5.22) M/mm3 Hgb (11.2-15.7) gm/dl Hct (34.1-44.9) % MCV (79.4-94.8) fl MCH (25.6-32.2) pg MCHC (32.2-35.5) g/dl RDW Std Deviation (36.4-46.3) fL Plt Count (182-369) K/mm3 MPV (9.4-12.3) fl Neut % (Auto) (34.0-71.1) % Lymph % (Auto) (19.3-51.7) % [place] % (Auto) (4.7-12.5) % Eos % (Auto) (0.7-5.8) Baso % (Auto) (0.1-1.2) % Neut # (Auto) (1.56-6.13) K/mm3 Lymph # (Auto) (1.18-3.74) K/mm3 [place] # (Auto) (0.24-0.36) K/mm3 Eos # (Auto) (0.04-0.36) K/mm3 Baso # (Auto) (0.01-0.08) K/mm3 Sodium (136-145) mEq/L Potassium (3.5-5.1) mEq/L Chloride (98-107) mEq/L Carbon Dioxide (21-32) mEq/L Anion Gap (5-15) BUN (7-18) mg/dL Creatinine (0.55-1.02) mg/dL Est Cr Clr Drug Dosing mL/min Estimated GFR (MDRD) (>60) mL/min BUN/Creatinine Ratio (14-18) Glucose (70-99) mg/dL POC Glucose 125 H 119 H 105 H (70-99) mg/dL Calcium (8.5-10.1) mg/dL Magnesium (1.8-2.4) mg/dL Total Bilirubin AST ALT Alkaline Phosphatase C-Reactive Protein (<1.0) mg/dL Total Protein Albumin Globulin Albumin/Globulin Ratio Triglycerides (<150) mg/dL 09/05/20 09/05/20 09/05/20 Range/Units 01:59 03:07 04:06 WBC (3.98-10.04) K/mm3 RBC (3.98-5.22) M/mm3 Hgb (11.2-15.7) gm/dl Hct (34.1-44.9) % MCV (79.4-94.8) fl MCH (25.6-32.2) pg MCHC (32.2-35.5) g/dl RDW Std Deviation (36.4-46.3) fL Plt Count (182-369) K/mm3 MPV (9.4-12.3) fl Neut % (Auto) (34.0-71.1) % Lymph % (Auto) (19.3-51.7) % [place] % (Auto) (4.7-12.5) % Eos % (Auto) (0.7-5.8) Baso % (Auto) (0.1-1.2) % Neut # (Auto) (1.56-6.13) K/mm3 Lymph # (Auto) (1.18-3.74) K/mm3 [place] # (Auto) (0.24-0.36) K/mm3 Eos # (Auto) (0.04-0.36) K/mm3 Baso # (Auto) (0.01-0.08) K/mm3 Sodium (136-145) mEq/L Potassium (3.5-5.1) mEq/L Chloride (98-107) mEq/L Carbon Dioxide (21-32) mEq/L Anion Gap (5-15) BUN (7-18) mg/dL Creatinine (0.55-1.02) mg/dL Est Cr Clr Drug Dosing mL/min Estimated GFR (MDRD) (>60) mL/min BUN/Creatinine Ratio (14-18) Glucose (70-99) mg/dL POC Glucose 114 H 110 H 109 H (70-99) mg/dL Calcium (8.5-10.1) mg/dL Magnesium (1.8-2.4) mg/dL Total Bilirubin AST ALT Alkaline Phosphatase C-Reactive Protein (<1.0) mg/dL Total Protein Albumin Globulin Albumin/Globulin Ratio Triglycerides (<150) mg/dL 09/05/20 09/05/20 09/05/20 Range/Units 05:06 06:12 06:39 WBC 6.47 (3.98-10.04) K/mm3 RBC 4.41 (3.98-5.22) M/mm3 Hgb 13.5 D (11.2-15.7) gm/dl Hct 39.3 (34.1-44.9) % MCV 89.1 (79.4-94.8) fl MCH 30.6 (25.6-32.2) pg MCHC 34.4 (32.2-35.5) g/dl RDW Std Deviation 47.3 H (36.4-46.3) fL Plt Count 194 (182-369) K/mm3 MPV 10.3 (9.4-12.3) fl Neut % (Auto) 74.1 H (34.0-71.1) % Lymph % (Auto) 15.8 L (19.3-51.7) % [place] % (Auto) 9.4 (4.7-12.5) % Eos % (Auto) 0.2 L (0.7-5.8) Baso % (Auto) 0.2 (0.1-1.2) % Neut # (Auto) 4.80 (1.56-6.13) K/mm3 Lymph # (Auto) 1.02 L (1.18-3.74) K/mm3 [place] # (Auto) 0.61 H (0.24-0.36) K/mm3 Eos # (Auto) 0.01 L (0.04-0.36) K/mm3 Baso # (Auto) 0.01 (0.01-0.08) K/mm3 Sodium (136-145) mEq/L Potassium (3.5-5.1) mEq/L Chloride (98-107) mEq/L Carbon Dioxide (21-32) mEq/L Anion Gap (5-15) BUN (7-18) mg/dL Creatinine (0.55-1.02) mg/dL Est Cr Clr Drug Dosing mL/min Estimated GFR (MDRD) (>60) mL/min BUN/Creatinine Ratio (14-18) Glucose (70-99) mg/dL POC Glucose 115 H 110 H (70-99) mg/dL Calcium (8.5-10.1) mg/dL Magnesium (1.8-2.4) mg/dL Total Bilirubin AST ALT Alkaline Phosphatase C-Reactive Protein (<1.0) mg/dL Total Protein Albumin Globulin Albumin/Globulin Ratio Triglycerides (<150) mg/dL 09/05/20 Range/Units 06:39 WBC (3.98-10.04) K/mm3 RBC (3.98-5.22) M/mm3 Hgb (11.2-15.7) gm/dl Hct (34.1-44.9) % MCV (79.4-94.8) fl MCH (25.6-32.2) pg MCHC (32.2-35.5) g/dl RDW Std Deviation (36.4-46.3) fL Plt Count (182-369) K/mm3 MPV (9.4-12.3) fl Neut % (Auto) (34.0-71.1) % Lymph % (Auto) (19.3-51.7) % [place] % (Auto) (4.7-12.5) % Eos % (Auto) (0.7-5.8) Baso % (Auto) (0.1-1.2) % Neut # (Auto) (1.56-6.13) K/mm3 Lymph # (Auto) (1.18-3.74) K/mm3 [place] # (Auto) (0.24-0.36) K/mm3 Eos # (Auto) (0.04-0.36) K/mm3 Baso # (Auto) (0.01-0.08) K/mm3 Sodium 141 (136-145) mEq/L Potassium 3.3 L (3.5-5.1) mEq/L Chloride 110 H (98-107) mEq/L Carbon Dioxide 19 L (21-32) mEq/L Anion Gap 15.3 H (5-15) BUN 7 (7-18) mg/dL Creatinine 0.6 (0.55-1.02) mg/dL Est Cr Clr Drug Dosing 78.18 mL/min Estimated GFR (MDRD) > 60 (>60) mL/min BUN/Creatinine Ratio 11.7 L (14-18) Glucose 127 H (70-99) mg/dL POC Glucose (70-99) mg/dL Calcium (8.5-10.1) mg/dL Magnesium 2.0 (1.8-2.4) mg/dL Total Bilirubin 0.3 AST 23 ALT 61 H Alkaline Phosphatase 36 L C-Reactive Protein (<1.0) mg/dL Total Protein 5.1 L Albumin 2.1 L Globulin 3.0 Albumin/Globulin Ratio 0.7 L Triglycerides (<150) mg/dL Result Diagrams: 09/05/20 06:39 09/05/20 06:39 Sepsis Event Note - Evaluation Sepsis Screening Result: No Definite Risk - Focused Exam Vital Signs: Vital Signs Temp Pulse Resp BP Pulse Ox Pulse Ox 09/05/20 06:30 98 09/05/20 04:00 97.9 F 91 20 145/84 H 95 09/05/20 00:00 97.7 F 87 16 125/77 96 09/04/20 20:00 97.8 F 82 18 116/69 96 09/04/20 19:48 94 L - Problem List & Annotations (1) Pancreatitis SNOMED Code(s): 37606548 Code(s): K85.90 - ACUTE PANCREATITIS WITHOUT NECROSIS OR INFECTION, UNSP Status: Acute Priority: High Current Visit: Yes Qualifiers: Chronicity: acute Pancreatitis type: unspecified pancreatitis type Acute pancreatitis complication: no infection or necrosis Qualified Code(s): K85.90 - Acute pancreatitis without necrosis or infection, unspecified (2) Abdominal pain SNOMED Code(s): 85990312 Code(s): R10.9 - UNSPECIFIED ABDOMINAL PAIN Status: Acute Priority: High Current Visit: Yes Qualifiers: Abdominal location: generalized Qualified Code(s): R10.84 - Generalized abdominal pain (3) HLD (hyperlipidemia) SNOMED Code(s): 62290131 Code(s): E78.5 - HYPERLIPIDEMIA, UNSPECIFIED Status: Chronic Priority: Medium Current Visit: Yes Qualifiers: Hyperlipidemia type: unspecified Qualified Code(s): E78.5 - Hyperlipidemia, unspecified (4) Hypertriglyceridemia SNOMED Code(s): 378490370 Code(s): E78.1 - PURE HYPERGLYCERIDEMIA Status: Chronic Priority: Medium Current Visit: Yes (5) Nausea & vomiting SNOMED Code(s): 46908731 Code(s): R11.2 - NAUSEA WITH VOMITING, UNSPECIFIED Status: Resolved Priority: High Current Visit: Yes Qualifiers: Vomiting type: unspecified Vomiting Intractability: non-intractable Qualified Code(s): R11.2 - Nausea with vomiting, unspecified (6) Hypomagnesemia SNOMED Code(s): 005750950 Code(s): E83.42 - HYPOMAGNESEMIA Status: Resolved Priority: High Current Visit: Yes (7) Hypokalemia SNOMED Code(s): 99778713 Code(s): E87.6 - HYPOKALEMIA Status: Acute Priority: High Current Visit: Yes (8) Hypocalcemia SNOMED Code(s): 9036162 Code(s): E83.51 - HYPOCALCEMIA Status: Acute Priority: Medium Current Visit: Yes (9) Hypoalbuminemia SNOMED Code(s): 824932653 Code(s): E88.09 - OTH DISORDERS OF PLASMA-PROTEIN METABOLISM, NEC Status: Acute Priority: Medium Current Visit: Yes - Problem List Review Problem List Initiated/Reviewed/Updated: Yes - My Orders Last 24 Hours: My Active Orders 09/04/20 09:00 Enoxaparin [Lovenox] 40 mg SUBCUT DAILY Fenofibrate 54 mg PO DAILY 09/04/20 10:55 Patient Status [ADT] Routine 09/04/20 11:09 Peripheral IV Care [RC] . DIRECTED Sodium Chloride 0.9% [Saline Flush] 10 ml FLUSH ASDIRECTED PRN Peripheral IV Insertion Adult [OM.PC] Routine 09/04/20 11:25 oxyCODONE 10 mg PO Q6H PRN 09/04/20 11:30 Insulin Regular, Human [HumuLIN R] 100 unit Sodium Chloride 0.9% [Normal Saline] 99 ml IV ASDIRECTED 09/04/20 15:45 Dextrose 5%-0.9% NaCl [Dextrose 5%-Normal Saline] 1,000 ml IV ASDIRECTED 09/05/20 06:39 CBC WITH AUTO DIFF [HEME] AM CMP [COMPREHENSIVE METABOLIC PN,CMP] [CHEM] AM MAGNESIUM [CHEM] AM TRIGLYCERIDES [CHEM] Q12H 09/05/20 07:14 GLUCOSE,POC [POC] Routine 09/05/20 07:30 Potassium Chloride [KCl in Water 10 MEQ/100 ML] 10 meq Premix Bag 1 bag IV Q1H 09/05/20 21:00 TRIGLYCERIDES [CHEM] Q12H 09/06/20 05:11 CBC WITH AUTO DIFF [HEME] AM CMP [COMPREHENSIVE METABOLIC PN,CMP] [CHEM] AM MAGNESIUM [CHEM] AM 09/07/20 05:11 CBC WITH AUTO DIFF [HEME] AM CMP [COMPREHENSIVE METABOLIC PN,CMP] [CHEM] AM MAGNESIUM [CHEM] AM - Assessment Assessment:: Assessment - day of admission 09/03/2020 * 60-year-old female who presented to the walk-in clinic at [facility] with abdominal pain * History of hypercholesteremia, hemorrhoids, and high triglycerides. * Pain began yesterday evening and is gotten worse, to the point where she cannot find a comfortable position * Denies any fever, nausea, diarrhea, constipation, blood in stool, dysuria, urinary frequency or urgency * Did vomit this morning. * Has been attempting to eat saltines and yogurt but they did not make her pain any better or worse. * States pain is cramping and consistent in nature * Denies any previous abdominal surgery or history of diverticulosis or diverticulitis * At the walk-in clinic blood pressure was 136/85. Pulse 71. Temp 97.6 Fahrenheit. Respirations 16. Oxygen saturations were 99% on room air. * Labs are obtained: * WBC 15.0. * Hemoglobin 15.5. * Lipase is elevated at 198, with a reference range of 8-78 being normal. * UA is obtained and is grossly negative. * CMP and amylase are still pending. * Abdominal pelvis with contrast is obtained and shows acute pancreatitis without evidence of necrosis and a mildly complex right renal cyst. They recommend follow-up imaging within 6 to 12 months. Additional chronic findings are also noted. * Patient reports significant abdominal pain. * Was subsequently set to our hospital for direct admit for management of her pancreatitis. 09/04/2020 This is a 60-year-old female who was admitted on 09/03/2020 after being seen at the [place] walk-in clinic and noted to have pancreatitis. Lipase was only mildly elevated at [address] scans did show stranding around the pancreas. Patient was also noted to have continued significant abdominal pain. Patient has been receiving quite a bit of oral and IV pain medications. Continues to report left upper quadrant pain with some left lower quadrant pain and generalized abdominal pain. She has been receiving IV fluids. She continues to report nausea and vomiting. Dr. Pompa, plunket nurse with [facility] in [place] is contacted for recommendations. He does report their facility is currently on diversion, however he feels that this is something we can handle locally. He suggests we start a insulin infusion on the patient, start D5 NS, and check blood sugars regularly. Goal would be to decrease triglycerides to less than 1000. He reports this can take several days. He also suggests her pain will likely last for several days as well. Because of the insulin infusion patient will need to be upgraded to ICU status. We will start 1 mg/kg/h insulin infusion and also start D5 NS, which we will titrate based on patient's sugars. We will check blood sugars every 1 hour and triglycerides every 12 hours. Patient is aware of this plan and in agreement. She will remain n.p.o. Length of stay likely 3 to 5 days pending response to therapy. Labs today reveal a WBC of 5.04. Hemoglobin is 15.5. Platelets 196,000. Neutrophils are elevated at 77.8. Sodium is 137. Potassium 3.6. Chloride 105. Carbon dioxide is 12. Anion gap is 23.6. BUN is 10. Creatinine 0.6. GFR greater than 60. Glucose is 171. Calcium 6.3. Magnesium 1.7. CRP is 1.6. Liver enzyme testing is not performed as the patient is very lipoic. 09/05/2020 6-year-old female admitted to the floor for pancreatitis and severe hypertriglyceridemia. She was started on insulin drip which has been titrated. Triglycerides today are down to 537 with a goal triglyceride less than 500. She is receiving D5 NS. She did require several boluses of D50 overnight for hypoglycemia. Unfortunately given the required fluids patient did become fluid overloaded and is now edematous and having some desaturations. Lasix was given this morning we will continue Lasix as indicated to try to draw off extra fluid. Once patient is off insulin drip we should be able to substantially decrease and/or discontinue IV fluids. She is very tired as she has been up receiving blood glucose checks through the night. We will change blood glucose checks to every 2 hours as she has been fairly stable. Labs today show WBC of 6.47. Hemoglobin 13.5. Platelet 194,000. Sodium is 141. Potassium is 3.3 and this will be supplemented. Chloride 110. Carbon dioxide 19. Anion gap is 15.3. BUN is 7. Creatinine 0.6. GFR greater than 60. Glucose has been in the low 100s. Calcium is 5.8 however corrected this is 7.2. Protein is 5.1 and albumin is 2.1. We will continue n.p.o. status for now and reassess as the day continues. - Plan Plan:: Pancreatitis Abdominal pain HLD (hyperlipidemia) Hypertriglyceridemia Nausea & vomiting - resolved * NPO for now * IV fluids as ordered * Check triglycerides as directed * Repeat AM labs * Start 1mg/kg/hr insulin drip-->decreased to 0.05 mg/kg/hr * Q2Hr blood glucose checks * Continue D5NS and titrate based on glucose readings * Wildlife Biologist consultation * Pain medications as ordered * O2 as need to keep saturations >92% * Goal triglycerides <500 * Continue home stain * Continue fenofibrate 54mg daily Hypomagnesemia - resolved Hypokalemia Hypocalcemia Hypoalbuminemia * Monitor labs * Supplement potassium * Corrected calcium is 7.2 will hold off supplementation for now * Wildlife Biologist consult Code status: Full code PCP: Dr. German DVT prophylaxis: Lovenox Disposition: Upgraded to ICU status on 09/04/2020 due to insulin infusion. Consider downgrading today if able to come off insulin drip. Length of stay likely 3 to 4 days, depending on response to treatment and successful adva ncement of diet. <NakiaOwen Jr - Last Filed: 09/05/20 18:15> - Patient Data Vitals - Most Recent: Last Vital Signs Temp 97.3 F 09/05/20 16:00 Pulse 91 09/05/20 17:00 Resp 20 09/05/20 16:00 BP 150/87 H 09/05/20 16:15 Pulse Ox 95 09/05/20 17:00 I&O - Last 24 Hours: Intake & Output 09/05/20 09/05/20 09/05/20 06:59 14:59 22:59 Intake Total 3628 0440 Output Total 1999 4247 Balance 1840 -1999 -476 Lab Results Last 24 Hours: Laboratory Results - last 24 hr 09/04/20 09/04/20 09/04/20 Range/Units 18:53 19:58 21:03 WBC (3.98-10.04) K/mm3 RBC (3.98-5.22) M/mm3 Hgb (11.2-15.7) gm/dl Hct (34.1-44.9) % MCV (79.4-94.8) fl MCH (25.6-32.2) pg MCHC (32.2-35.5) g/dl RDW Std Deviation (36.4-46.3) fL Plt Count (182-369) K/mm3 MPV (9.4-12.3) fl Neut % (Auto) (34.0-71.1) % Lymph % (Auto) (19.3-51.7) % [place] % (Auto) (4.7-12.5) % Eos % (Auto) (0.7-5.8) Baso % (Auto) (0.1-1.2) % Neut # (Auto) (1.56-6.13) K/mm3 Lymph # (Auto) (1.18-3.74) K/mm3 [place] # (Auto) (0.24-0.36) K/mm3 Eos # (Auto) (0.04-0.36) K/mm3 Baso # (Auto) (0.01-0.08) K/mm3 Manual Slide Review Sodium (136-145) mEq/L Potassium (3.5-5.1) mEq/L Chloride (98-107) mEq/L Carbon Dioxide (21-32) mEq/L Anion Gap (5-15) BUN (7-18) mg/dL Creatinine (0.55-1.02) mg/dL Est Cr Clr Drug Dosing mL/min Estimated GFR (MDRD) (>60) mL/min BUN/Creatinine Ratio (14-18) Glucose (70-99) mg/dL POC Glucose 115 H 92 (70-99) mg/dL Calcium (8.5-10.1) mg/dL Magnesium (1.8-2.4) mg/dL Total Bilirubin (0.2-1.0) mg/dL AST (15-37) U/L ALT (14-59) U/L Alkaline Phosphatase (46-116) U/L Total Protein (6.4-8.2) g/dl Albumin (3.4-5.0) g/dl Globulin gm/dL Albumin/Globulin Ratio (1-2) Triglycerides 594 H (<150) mg/dL 09/04/20 09/04/20 09/04/20 Range/Units 21:16 22:03 23:09 WBC (3.98-10.04) K/mm3 RBC (3.98-5.22) M/mm3 Hgb (11.2-15.7) gm/dl Hct (34.1-44.9) % MCV (79.4-94.8) fl MCH (25.6-32.2) pg MCHC (32.2-35.5) g/dl RDW Std Deviation (36.4-46.3) fL Plt Count (182-369) K/mm3 MPV (9.4-12.3) fl Neut % (Auto) (34.0-71.1) % Lymph % (Auto) (19.3-51.7) % [place] % (Auto) (4.7-12.5) % Eos % (Auto) (0.7-5.8) Baso % (Auto) (0.1-1.2) % Neut # (Auto) (1.56-6.13) K/mm3 Lymph # (Auto) (1.18-3.74) K/mm3 [place] # (Auto) (0.24-0.36) K/mm3 Eos # (Auto) (0.04-0.36) K/mm3 Baso # (Auto) (0.01-0.08) K/mm3 Manual Slide Review Sodium (136-145) mEq/L Potassium (3.5-5.1) mEq/L Chloride (98-107) mEq/L Carbon Dioxide (21-32) mEq/L Anion Gap (5-15) BUN (7-18) mg/dL Creatinine (0.55-1.02) mg/dL Est Cr Clr Drug Dosing mL/min Estimated GFR (MDRD) (>60) mL/min BUN/Creatinine Ratio (14-18) Glucose (70-99) mg/dL POC Glucose 175 H 135 H 125 H (70-99) mg/dL Calcium (8.5-10.1) mg/dL Magnesium (1.8-2.4) mg/dL Total Bilirubin (0.2-1.0) mg/dL AST (15-37) U/L ALT (14-59) U/L Alkaline Phosphatase (46-116) U/L Total Protein (6.4-8.2) g/dl Albumin (3.4-5.0) g/dl Globulin gm/dL Albumin/Globulin Ratio (1-2) Triglycerides (<150) mg/dL 09/05/20 09/05/20 09/05/20 Range/Units 00:14 01:06 01:59 WBC (3.98-10.04) K/mm3 RBC (3.98-5.22) M/mm3 Hgb (11.2-15.7) gm/dl Hct (34.1-44.9) % MCV (79.4-94.8) fl MCH (25.6-32.2) pg MCHC (32.2-35.5) g/dl RDW Std Deviation (36.4-46.3) fL Plt Count (182-369) K/mm3 MPV (9.4-12.3) fl Neut % (Auto) (34.0-71.1) % Lymph % (Auto) (19.3-51.7) % [place] % (Auto) (4.7-12.5) % Eos % (Auto) (0.7-5.8) Baso % (Auto) (0.1-1.2) % Neut # (Auto) (1.56-6.13) K/mm3 Lymph # (Auto) (1.18-3.74) K/mm3 [place] # (Auto) (0.24-0.36) K/mm3 Eos # (Auto) (0.04-0.36) K/mm3 Baso # (Auto) (0.01-0.08) K/mm3 Manual Slide Review Sodium (136-145) mEq/L Potassium (3.5-5.1) mEq/L Chloride (98-107) mEq/L Carbon Dioxide (21-32) mEq/L Anion Gap (5-15) BUN (7-18) mg/dL Creatinine (0.55-1.02) mg/dL Est Cr Clr Drug Dosing mL/min Estimated GFR (MDRD) (>60) mL/min BUN/Creatinine Ratio (14-18) Glucose (70-99) mg/dL POC Glucose 119 H 105 H 114 H (70-99) mg/dL Calcium (8.5-10.1) mg/dL Magnesium (1.8-2.4) mg/dL Total Bilirubin (0.2-1.0) mg/dL AST (15-37) U/L ALT (14-59) U/L Alkaline Phosphatase (46-116) U/L Total Protein (6.4-8.2) g/dl Albumin (3.4-5.0) g/dl Globulin gm/dL Albumin/Globulin Ratio (1-2) Triglycerides (<150) mg/dL 09/05/20 09/05/20 09/05/20 Range/Units 03:07 04:06 05:06 WBC (3.98-10.04) K/mm3 RBC (3.98-5.22) M/mm3 Hgb (11.2-15.7) gm/dl Hct (34.1-44.9) % MCV (79.4-94.8) fl MCH (25.6-32.2) pg MCHC (32.2-35.5) g/dl RDW Std Deviation (36.4-46.3) fL Plt Count (182-369) K/mm3 MPV (9.4-12.3) fl Neut % (Auto) (34.0-71.1) % Lymph % (Auto) (19.3-51.7) % [place] % (Auto) (4.7-12.5) % Eos % (Auto) (0.7-5.8) Baso % (Auto) (0.1-1.2) % Neut # (Auto) (1.56-6.13) K/mm3 Lymph # (Auto) (1.18-3.74) K/mm3 [place] # (Auto) (0.24-0.36) K/mm3 Eos # (Auto) (0.04-0.36) K/mm3 Baso # (Auto) (0.01-0.08) K/mm3 Manual Slide Review Sodium (136-145) mEq/L Potassium (3.5-5.1) mEq/L Chloride (98-107) mEq/L Carbon Dioxide (21-32) mEq/L Anion Gap (5-15) BUN (7-18) mg/dL Creatinine (0.55-1.02) mg/dL Est Cr Clr Drug Dosing mL/min Estimated GFR (MDRD) (>60) mL/min BUN/Creatinine Ratio (14-18) Glucose (70-99) mg/dL POC Glucose 110 H 109 H 115 H (70-99) mg/dL Calcium (8.5-10.1) mg/dL Magnesium (1.8-2.4) mg/dL Total Bilirubin (0.2-1.0) mg/dL AST (15-37) U/L ALT (14-59) U/L Alkaline Phosphatase (46-116) U/L Total Protein (6.4-8.2) g/dl Albumin (3.4-5.0) g/dl Globulin gm/dL Albumin/Globulin Ratio (1-2) Triglycerides (<150) mg/dL 09/05/20 09/05/20 09/05/20 Range/Units 06:12 06:39 06:39 WBC 6.47 (3.98-10.04) K/mm3 RBC 4.41 (3.98-5.22) M/mm3 Hgb 13.5 D (11.2-15.7) gm/dl Hct 39.3 (34.1-44.9) % MCV 89.1 (79.4-94.8) fl MCH 30.6 (25.6-32.2) pg MCHC 34.4 (32.2-35.5) g/dl RDW Std Deviation 47.3 H (36.4-46.3) fL Plt Count 194 (182-369) K/mm3 MPV 10.3 (9.4-12.3) fl Neut % (Auto) 74.1 H (34.0-71.1) % Lymph % (Auto) 15.8 L (19.3-51.7) % [place] % (Auto) 9.4 (4.7-12.5) % Eos % (Auto) 0.2 L (0.7-5.8) Baso % (Auto) 0.2 (0.1-1.2) % Neut # (Auto) 4.80 (1.56-6.13) K/mm3 Lymph # (Auto) 1.02 L (1.18-3.74) K/mm3 [place] # (Auto) 0.61 H (0.24-0.36) K/mm3 Eos # (Auto) 0.01 L (0.04-0.36) K/mm3 Baso # (Auto) 0.01 (0.01-0.08) K/mm3 Manual Slide Review Normal smear Sodium 141 (136-145) mEq/L Potassium 3.3 L (3.5-5.1) mEq/L Chloride 110 H (98-107) mEq/L Carbon Dioxide 19 L (21-32) mEq/L Anion Gap 15.3 H (5-15) BUN 7 (7-18) mg/dL Creatinine 0.6 (0.55-1.02) mg/dL Est Cr Clr Drug Dosing 78.18 mL/min Estimated GFR (MDRD) > 60 (>60) mL/min BUN/Creatinine Ratio 11.7 L (14-18) Glucose 127 H (70-99) mg/dL POC Glucose 110 H (70-99) mg/dL Calcium 5.8 L* (8.5-10.1) mg/dL Magnesium 2.0 (1.8-2.4) mg/dL Total Bilirubin 0.3 (0.2-1.0) mg/dL AST 23 (15-37) U/L ALT 61 H (14-59) U/L Alkaline Phosphatase 36 L (46-116) U/L Total Protein 5.1 L (6.4-8.2) g/dl Albumin 2.1 L (3.4-5.0) g/dl Globulin 3.0 gm/dL Albumin/Globulin Ratio 0.7 L (1-2) Triglycerides (<150) mg/dL 09/05/20 09/05/20 09/05/20 Range/Units 06:39 07:14 08:11 WBC (3.98-10.04) K/mm3 RBC (3.98-5.22) M/mm3 Hgb (11.2-15.7) gm/dl Hct (34.1-44.9) % MCV (79.4-94.8) fl MCH (25.6-32.2) pg MCHC (32.2-35.5) g/dl RDW Std Deviation (36.4-46.3) fL Plt Count (182-369) K/mm3 MPV (9.4-12.3) fl Neut % (Auto) (34.0-71.1) % Lymph % (Auto) (19.3-51.7) % [place] % (Auto) (4.7-12.5) % Eos % (Auto) (0.7-5.8) Baso % (Auto) (0.1-1.2) % Neut # (Auto) (1.56-6.13) K/mm3 Lymph # (Auto) (1.18-3.74) K/mm3 [place] # (Auto) (0.24-0.36) K/mm3 Eos # (Auto) (0.04-0.36) K/mm3 Baso # (Auto) (0.01-0.08) K/mm3 Manual Slide Review Sodium (136-145) mEq/L Potassium (3.5-5.1) mEq/L Chloride (98-107) mEq/L Carbon Dioxide (21-32) mEq/L Anion Gap (5-15) BUN (7-18) mg/dL Creatinine (0.55-1.02) mg/dL Est Cr Clr Drug Dosing mL/min Estimated GFR (MDRD) (>60) mL/min BUN/Creatinine Ratio (14-18) Glucose (70-99) mg/dL POC Glucose 131 H 127 H (70-99) mg/dL Calcium (8.5-10.1) mg/dL Magnesium (1.8-2.4) mg/dL Total Bilirubin (0.2-1.0) mg/dL AST (15-37) U/L ALT (14-59) U/L Alkaline Phosphatase (46-116) U/L Total Protein (6.4-8.2) g/dl Albumin (3.4-5.0) g/dl Globulin gm/dL Albumin/Globulin Ratio (1-2) Triglycerides 537 H (<150) mg/dL 09/05/20 09/05/20 09/05/20 Range/Units 10:01 11:55 13:40 WBC (3.98-10.04) K/mm3 RBC (3.98-5.22) M/mm3 Hgb (11.2-15.7) gm/dl Hct (34.1-44.9) % MCV (79.4-94.8) fl MCH (25.6-32.2) pg MCHC (32.2-35.5) g/dl RDW Std Deviation (36.4-46.3) fL Plt Count (182-369) K/mm3 MPV (9.4-12.3) fl Neut % (Auto) (34.0-71.1) % Lymph % (Auto) (19.3-51.7) % [place] % (Auto) (4.7-12.5) % Eos % (Auto) (0.7-5.8) Baso % (Auto) (0.1-1.2) % Neut # (Auto) (1.56-6.13) K/mm3 Lymph # (Auto) (1.18-3.74) K/mm3 [place] # (Auto) (0.24-0.36) K/mm3 Eos # (Auto) (0.04-0.36) K/mm3 Baso # (Auto) (0.01-0.08) K/mm3 Manual Slide Review Sodium (136-145) mEq/L Potassium (3.5-5.1) mEq/L Chloride (98-107) mEq/L Carbon Dioxide (21-32) mEq/L Anion Gap (5-15) BUN (7-18) mg/dL Creatinine (0.55-1.02) mg/dL Est Cr Clr Drug Dosing mL/min Estimated GFR (MDRD) (>60) mL/min BUN/Creatinine Ratio (14-18) Glucose (70-99) mg/dL POC Glucose 127 H 117 H (70-99) mg/dL Calcium (8.5-10.1) mg/dL Magnesium (1.8-2.4) mg/dL Total Bilirubin (0.2-1.0) mg/dL AST (15-37) U/L ALT (14-59) U/L Alkaline Phosphatase (46-116) U/L Total Protein (6.4-8.2) g/dl Albumin (3.4-5.0) g/dl Globulin gm/dL Albumin/Globulin Ratio (1-2) Triglycerides 632 H (<150) mg/dL 09/05/20 09/05/20 09/05/20 Range/Units 14:19 16:11 17:02 WBC (3.98-10.04) K/mm3 RBC (3.98-5.22) M/mm3 Hgb (11.2-15.7) gm/dl Hct (34.1-44.9) % MCV (79.4-94.8) fl MCH (25.6-32.2) pg MCHC (32.2-35.5) g/dl RDW Std Deviation (36.4-46.3) fL Plt Count (182-369) K/mm3 MPV (9.4-12.3) fl Neut % (Auto) (34.0-71.1) % Lymph % (Auto) (19.3-51.7) % [place] % (Auto) (4.7-12.5) % Eos % (Auto) (0.7-5.8) Baso % (Auto) (0.1-1.2) % Neut # (Auto) (1.56-6.13) K/mm3 Lymph # (Auto) (1.18-3.74) K/mm3 [place] # (Auto) (0.24-0.36) K/mm3 Eos # (Auto) (0.04-0.36) K/mm3 Baso # (Auto) (0.01-0.08) K/mm3 Manual Slide Review Sodium (136-145) mEq/L Potassium (3.5-5.1) mEq/L Chloride (98-107) mEq/L Carbon Dioxide (21-32) mEq/L Anion Gap (5-15) BUN (7-18) mg/dL Creatinine (0.55-1.02) mg/dL Est Cr Clr Drug Dosing mL/min Estimated GFR (MDRD) (>60) mL/min BUN/Creatinine Ratio (14-18) Glucose (70-99) mg/dL POC Glucose 115 H 102 H 98 (70-99) mg/dL Calcium (8.5-10.1) mg/dL Magnesium (1.8-2.4) mg/dL Total Bilirubin (0.2-1.0) mg/dL AST (15-37) U/L ALT (14-59) U/L Alkaline Phosphatase (46-116) U/L Total Protein (6.4-8.2) g/dl Albumin (3.4-5.0) g/dl Globulin gm/dL Albumin/Globulin Ratio (1-2) Triglycerides (<150) mg/dL 09/05/20 Range/Units 17:55 WBC (3.98-10.04) K/mm3 RBC (3.98-5.22) M/mm3 Hgb (11.2-15.7) gm/dl Hct (34.1-44.9) % MCV (79.4-94.8) fl MCH (25.6-32.2) pg MCHC (32.2-35.5) g/dl RDW Std Deviation (36.4-46.3) fL Plt Count (182-369) K/mm3 MPV (9.4-12.3) fl Neut % (Auto) (34.0-71.1) % Lymph % (Auto) (19.3-51.7) % [place] % (Auto) (4.7-12.5) % Eos % (Auto) (0.7-5.8) Baso % (Auto) (0.1-1.2) % Neut # (Auto) (1.56-6.13) K/mm3 Lymph # (Auto) (1.18-3.74) K/mm3 [place] # (Auto) (0.24-0.36) K/mm3 Eos # (Auto) (0.04-0.36) K/mm3 Baso # (Auto) (0.01-0.08) K/mm3 Manual Slide Review Sodium (136-145) mEq/L Potassium (3.5-5.1) mEq/L Chloride (98-107) mEq/L Carbon Dioxide (21-32) mEq/L Anion Gap (5-15) BUN (7-18) mg/dL Creatinine (0.55-1.02) mg/dL Est Cr Clr Drug Dosing mL/min Estimated GFR (MDRD) (>60) mL/min BUN/Creatinine Ratio (14-18) Glucose (70-99) mg/dL POC Glucose 141 H (70-99) mg/dL Calcium (8.5-10.1) mg/dL Magnesium (1.8-2.4) mg/dL Total Bilirubin (0.2-1.0) mg/dL AST (15-37) U/L ALT (14-59) U/L Alkaline Phosphatase (46-116) U/L Total Protein (6.4-8.2) g/dl Albumin (3.4-5.0) g/dl Globulin gm/dL Albumin/Globulin Ratio (1-2) Triglycerides (<150) mg/dL Med Orders - Current: Current Medications Acetaminophen (Acetaminophen 325 Mg Tab) 650 mg PO Q6H PRN PRN Reason: Pain (mild 1-3) Last Admin: 09/05/20 11:44 Dose: 650 mg Documented by: Dextrose/Water (50% Dextrose In Water 50 Ml Syringe) 50 ml IVPUSH ASDIRECTED PRN PRN Reason: Hypoglycemia Last Admin: 09/05/20 17:07 Dose: 50 ml Documented by: Enoxaparin Sodium (Enoxaparin 40 Mg/0.4 Ml Syringe) 40 mg SUBCUT DAILY [facility] Last Admin: 09/05/20 08:32 Dose: 40 mg Documented by: Fenofibrate (Fenofibrate 54 Mg Tab) 54 mg PO DAILY [facility] Last Admin: 09/05/20 08:32 Dose: 54 mg Documented by: Hydromorphone HCl (Hydromorphone 1 Mg/Ml Syringe) 2 mg IVPUSH Q4H PRN PRN Reason: Pain Last Admin: 09/04/20 16:39 Dose: 2 mg Documented by: Dextrose/Water (Dextrose 10% In Water) 1,000 mls @ 80 mls/hr IV ASDIRECTED [facility] Last Admin: 09/05/20 15:06 Dose: 80 mls/hr Documented by: Insulin Human Regular 100 unit (/ Sodium Chloride) 100 mls @ 4.536 mls/hr IV ASDIRECTED [facility] Ondansetron HCl (Ondansetron 4 Mg/2 Ml Sdv) 4 mg IV Q6H PRN PRN Reason: Nausea/Vomiting Last Admin: 09/04/20 05:30 Dose: 4 mg Documented by: Oxycodone HCl (Oxycodone 5 Mg Tab) 10 mg PO Q6H PRN PRN Reason: Pain (moderate 4-6) Last Admin: 09/05/20 02:03 Dose: 10 mg Documented by: Rosuvastatin Calcium (Rosuvastatin 10 Mg Tab) 20 mg PO BEDTIME [facility] Last Admin: 09/04/20 20:01 Dose: 20 mg Documented by: Simethicone (Simethicone 80 Mg Tab.Chew) 80 mg PO Q6H PRN PRN Reason: Gas Last Admin: 09/05/20 00:36 Dose: 80 mg Documented by: Sodium Chloride (Sodium Chloride 0.9% 10 Ml Syringe) 10 ml FLUSH ASDIRECTED PRN PRN Reason: Keep Vein Open Discontinued Medications Dextrose/Water (50% Dextrose In Water 50 Ml Syringe) 50 ml IVPUSH ASDIRECTED ONE Stop: 09/04/20 16:13 Last Admin: 09/04/20 16:20 Dose: 50 ml Documented by: Dextrose/Water (50% Dextrose In Water 50 Ml Syringe) 50 ml IVPUSH ASDIRECTED ONE Stop: 09/04/20 20:31 Last Admin: 09/04/20 20:41 Dose: 50 ml Documented by: Furosemide (Furosemide 40 Mg/4 Ml Vial) 40 mg IVPUSH NOW ONE Stop: 09/05/20 06:23 Last Admin: 09/05/20 06:46 Dose: 40 mg Documented by: Furosemide (Furosemide 40 Mg/4 Ml Vial) 40 mg IVPUSH ONETIME ONE Stop: 09/05/20 13:01 Last Admin: 09/05/20 13:10 Dose: 40 mg Documented by: Hydromorphone HCl (Hydromorphone 0.5 Mg/0.5 Ml Syringe) 0.5 mg IVPUSH ONETIME ONE Stop: 09/03/20 14:37 Last Admin: 09/03/20 14:48 Dose: 0.5 mg Documented by: Hydromorphone HCl (Hydromorphone 1 Mg/Ml Syringe) 2 mg IVPUSH ONETIME ONE Stop: 09/03/20 19:01 Last Admin: 09/03/20 19:11 Dose: 2 mg Documented by: Hydromorphone HCl (Hydromorphone 1 Mg/Ml Syringe) Confirm Administered Dose 2 mg .ROUTE .STK-MED ONE Stop: 09/03/20 19:04 Last Admin: 09/03/20 19:11 Dose: Not Given Documented by: Sodium Chloride (Normal Saline) 1,000 mls @ 150 mls/hr IV ASDIRECTED [facility] Last Admin: 09/03/20 13:07 Dose: 150 mls/hr Documented by: Sodium Chloride (Normal Saline) 1,000 mls @ 250 mls/hr IV ASDIRECTED [facility] Last Admin: 09/04/20 12:15 Dose: 250 mls/hr Documented by: Insulin Human Regular 100 unit (/ Sodium Chloride) 100 mls @ 4.203 mls/hr IV ASDIRECTED [facility] Last Infusion: 09/05/20 15:06 Dose: 0.05 units/kg/hr, 4.5 mls/hr Documented by: Dextrose/Sodium Chloride (Dextrose 5%-Normal Saline) 1,000 mls @ 100 mls/hr IV ASDIRECTED [facility] Last Admin: 09/04/20 12:15 Dose: 100 mls/hr Documented by: Magnesium Sulfate 2 gm/ Premix 50 mls @ 25 mls/hr IV ONETIME ONE Stop: 09/04/20 13:59 Last Admin: 09/04/20 12:10 Dose: 25 mls/hr Documented by: Dextrose/Sodium Chloride (Dextrose 5%-Normal Saline) 1,000 mls @ 150 mls/hr IV ASDIRECTED [facility] Last Admin: 09/05/20 09:43 Dose: 150 mls/hr Documented by: Sodium Chloride (Normal Saline) 1,000 mls @ 200 mls/hr IV ASDIRECTED [facility] Last Admin: 09/05/20 03:13 Dose: 200 mls/hr Documented by: Potassium Chloride 10 meq/ (Premix) 100 mls @ 100 mls/hr IV Q1H [facility] Stop: 09/05/20 11:29 Last Admin: 09/05/20 13:57 Dose: 50 mls/hr Documented by: Morphine Sulfate (Morphine 2 Mg/Ml Syringe) 2 mg IVPUSH Q2H PRN PRN Reason: Pain (severe 7-10) Last Admin: 09/03/20 13:06 Dose: 2 mg Documented by: Morphine Sulfate (Morphine 4 Mg/Ml Syringe) 4 mg IVPUSH Q2H PRN PRN Reason: Pain (severe 7-10) Last Admin: 09/03/20 17:07 Dose: 4 mg Documented by: Ondansetron HCl (Ondansetron 4 Mg/2 Ml Sdv) 4 mg IVPUSH ONETIME ONE Stop: 09/03/20 14:39 Last Admin: 09/03/20 14:48 Dose: 4 mg Documented by: Oxycodone HCl (Oxycodone 5 Mg Tab) 5 mg PO Q6H PRN PRN Reason: Pain (moderate 4-6) Oxycodone HCl (Oxycodone 5 Mg Tab) 5 mg PO ONETIME ONE Stop: 09/03/20 14:40 Last Admin: 09/03/20 14:48 Dose: 5 mg Documented by: Rosuvastatin Calcium (Rosuvastatin 10 Mg Tab) 10 mg PO BEDTIME [facility] Rosuvastatin Calcium (Rosuvastatin 10 Mg Tab) 5 mg PO BEDTIME [facility] Sodium Chloride (Sodium Chloride 0.9% 10 Ml Syringe) 10 ml FLUSH ASDIRECTED PRN PRN Reason: Keep Vein Open - Patient Data Lab Results Last 24 hrs: Laboratory Results - last 24 hr 09/04/20 09/04/20 09/04/20 Range/Units 18:53 19:58 21:03 WBC (3.98-10.04) K/mm3 RBC (3.98-5.22) M/mm3 Hgb (11.2-15.7) gm/dl Hct (34.1-44.9) % MCV (79.4-94.8) fl MCH (25.6-32.2) pg MCHC (32.2-35.5) g/dl RDW Std Deviation (36.4-46.3) fL Plt Count (182-369) K/mm3 MPV (9.4-12.3) fl Neut % (Auto) (34.0-71.1) % Lymph % (Auto) (19.3-51.7) % [place] % (Auto) (4.7-12.5) % Eos % (Auto) (0.7-5.8) Baso % (Auto) (0.1-1.2) % Neut # (Auto) (1.56-6.13) K/mm3 Lymph # (Auto) (1.18-3.74) K/mm3 [place] # (Auto) (0.24-0.36) K/mm3 Eos # (Auto) (0.04-0.36) K/mm3 Baso # (Auto) (0.01-0.08) K/mm3 Manual Slide Review Sodium (136-145) mEq/L Potassium (3.5-5.1) mEq/L Chloride (98-107) mEq/L Carbon Dioxide (21-32) mEq/L Anion Gap (5-15) BUN (7-18) mg/dL Creatinine (0.55-1.02) mg/dL Est Cr Clr Drug Dosing mL/min Estimated GFR (MDRD) (>60) mL/min BUN/Creatinine Ratio (14-18) Glucose (70-99) mg/dL POC Glucose 115 H 92 (70-99) mg/dL Calcium (8.5-10.1) mg/dL Magnesium (1.8-2.4) mg/dL Total Bilirubin (0.2-1.0) mg/dL AST (15-37) U/L ALT (14-59) U/L Alkaline Phosphatase (46-116) U/L Total Protein (6.4-8.2) g/dl Albumin (3.4-5.0) g/dl Globulin gm/dL Albumin/Globulin Ratio (1-2) Triglycerides 594 H (<150) mg/dL 09/04/20 09/04/20 09/04/20 Range/Units 21:16 22:03 23:09 WBC (3.98-10.04) K/mm3 RBC (3.98-5.22) M/mm3 Hgb (11.2-15.7) gm/dl Hct (34.1-44.9) % MCV (79.4-94.8) fl MCH (25.6-32.2) pg MCHC (32.2-35.5) g/dl RDW Std Deviation (36.4-46.3) fL Plt Count (182-369) K/mm3 MPV (9.4-12.3) fl Neut % (Auto) (34.0-71.1) % Lymph % (Auto) (19.3-51.7) % [place] % (Auto) (4.7-12.5) % Eos % (Auto) (0.7-5.8) Baso % (Auto) (0.1-1.2) % Neut # (Auto) (1.56-6.13) K/mm3 Lymph # (Auto) (1.18-3.74) K/mm3 [place] # (Auto) (0.24-0.36) K/mm3 Eos # (Auto) (0.04-0.36) K/mm3 Baso # (Auto) (0.01-0.08) K/mm3 Manual Slide Review Sodium (136-145) mEq/L Potassium (3.5-5.1) mEq/L Chloride (98-107) mEq/L Carbon Dioxide (21-32) mEq/L Anion Gap (5-15) BUN (7-18) mg/dL Creatinine (0.55-1.02) mg/dL Est Cr Clr Drug Dosing mL/min Estimated GFR (MDRD) (>60) mL/min BUN/Creatinine Ratio (14-18) Glucose (70-99) mg/dL POC Glucose 175 H 135 H 125 H (70-99) mg/dL Calcium (8.5-10.1) mg/dL Magnesium (1.8-2.4) mg/dL Total Bilirubin (0.2-1.0) mg/dL AST (15-37) U/L ALT (14-59) U/L Alkaline Phosphatase (46-116) U/L Total Protein (6.4-8.2) g/dl Albumin (3.4-5.0) g/dl Globulin gm/dL Albumin/Globulin Ratio (1-2) Triglycerides (<150) mg/dL 09/05/20 09/05/20 09/05/20 Range/Units 00:14 01:06 01:59 WBC (3.98-10.04) K/mm3 RBC (3.98-5.22) M/mm3 Hgb (11.2-15.7) gm/dl Hct (34.1-44.9) % MCV (79.4-94.8) fl MCH (25.6-32.2) pg MCHC (32.2-35.5) g/dl RDW Std Deviation (36.4-46.3) fL Plt Count (182-369) K/mm3 MPV (9.4-12.3) fl Neut % (Auto) (34.0-71.1) % Lymph % (Auto) (19.3-51.7) % [place] % (Auto) (4.7-12.5) % Eos % (Auto) (0.7-5.8) Baso % (Auto) (0.1-1.2) % Neut # (Auto) (1.56-6.13) K/mm3 Lymph # (Auto) (1.18-3.74) K/mm3 [place] # (Auto) (0.24-0.36) K/mm3 Eos # (Auto) (0.04-0.36) K/mm3 Baso # (Auto) (0.01-0.08) K/mm3 Manual Slide Review Sodium (136-145) mEq/L Potassium (3.5-5.1) mEq/L Chloride (98-107) mEq/L Carbon Dioxide (21-32) mEq/L Anion Gap (5-15) BUN (7-18) mg/dL Creatinine (0.55-1.02) mg/dL Est Cr Clr Drug Dosing mL/min Estimated GFR (MDRD) (>60) mL/min BUN/Creatinine Ratio (14-18) Glucose (70-99) mg/dL POC Glucose 119 H 105 H 114 H (70-99) mg/dL Calcium (8.5-10.1) mg/dL Magnesium (1.8-2.4) mg/dL Total Bilirubin (0.2-1.0) mg/dL AST (15-37) U/L ALT (14-59) U/L Alkaline Phosphatase (46-116) U/L Total Protein (6.4-8.2) g/dl Albumin (3.4-5.0) g/dl Globulin gm/dL Albumin/Globulin Ratio (1-2) Triglycerides (<150) mg/dL 09/05/20 09/05/20 09/05/20 Range/Units 03:07 04:06 05:06 WBC (3.98-10.04) K/mm3 RBC (3.98-5.22) M/mm3 Hgb (11.2-15.7) gm/dl Hct (34.1-44.9) % MCV (79.4-94.8) fl MCH (25.6-32.2) pg MCHC (32.2-35.5) g/dl RDW Std Deviation (36.4-46.3) fL Plt Count (182-369) K/mm3 MPV (9.4-12.3) fl Neut % (Auto) (34.0-71.1) % Lymph % (Auto) (19.3-51.7) % [place] % (Auto) (4.7-12.5) % Eos % (Auto) (0.7-5.8) Baso % (Auto) (0.1-1.2) % Neut # (Auto) (1.56-6.13) K/mm3 Lymph # (Auto) (1.18-3.74) K/mm3 [place] # (Auto) (0.24-0.36) K/mm3 Eos # (Auto) (0.04-0.36) K/mm3 Baso # (Auto) (0.01-0.08) K/mm3 Manual Slide Review Sodium (136-145) mEq/L Potassium (3.5-5.1) mEq/L Chloride (98-107) mEq/L Carbon Dioxide (21-32) mEq/L Anion Gap (5-15) BUN (7-18) mg/dL Creatinine (0.55-1.02) mg/dL Est Cr Clr Drug Dosing mL/min Estimated GFR (MDRD) (>60) mL/min BUN/Creatinine Ratio (14-18) Glucose (70-99) mg/dL POC Glucose 110 H 109 H 115 H (70-99) mg/dL Calcium (8.5-10.1) mg/dL Magnesium (1.8-2.4) mg/dL Total Bilirubin (0.2-1.0) mg/dL AST (15-37) U/L ALT (14-59) U/L Alkaline Phosphatase (46-116) U/L Total Protein (6.4-8.2) g/dl Albumin (3.4-5.0) g/dl Globulin gm/dL Albumin/Globulin Ratio (1-2) Triglycerides (<150) mg/dL 09/05/20 09/05/20 09/05/20 Range/Units 06:12 06:39 06:39 WBC 6.47 (3.98-10.04) K/mm3 RBC 4.41 (3.98-5.22) M/mm3 Hgb 13.5 D (11.2-15.7) gm/dl Hct 39.3 (34.1-44.9) % MCV 89.1 (79.4-94.8) fl MCH 30.6 (25.6-32.2) pg MCHC 34.4 (32.2-35.5) g/dl RDW Std Deviation 47.3 H (36.4-46.3) fL Plt Count 194 (182-369) K/mm3 MPV 10.3 (9.4-12.3) fl Neut % (Auto) 74.1 H (34.0-71.1) % Lymph % (Auto) 15.8 L (19.3-51.7) % [place] % (Auto) 9.4 (4.7-12.5) % Eos % (Auto) 0.2 L (0.7-5.8) Baso % (Auto) 0.2 (0.1-1.2) % Neut # (Auto) 4.80 (1.56-6.13) K/mm3 Lymph # (Auto) 1.02 L (1.18-3.74) K/mm3 [place] # (Auto) 0.61 H (0.24-0.36) K/mm3 Eos # (Auto) 0.01 L (0.04-0.36) K/mm3 Baso # (Auto) 0.01 (0.01-0.08) K/mm3 Manual Slide Review Normal smear Sodium 141 (136-145) mEq/L Potassium 3.3 L (3.5-5.1) mEq/L Chloride 110 H (98-107) mEq/L Carbon Dioxide 19 L (21-32) mEq/L Anion Gap 15.3 H (5-15) BUN 7 (7-18) mg/dL Creatinine 0.6 (0.55-1.02) mg/dL Est Cr Clr Drug Dosing 78.18 mL/min Estimated GFR (MDRD) > 60 (>60) mL/min BUN/Creatinine Ratio 11.7 L (14-18) Glucose 127 H (70-99) mg/dL POC Glucose 110 H (70-99) mg/dL Calcium 5.8 L* (8.5-10.1) mg/dL Magnesium 2.0 (1.8-2.4) mg/dL Total Bilirubin 0.3 (0.2-1.0) mg/dL AST 23 (15-37) U/L ALT 61 H (14-59) U/L Alkaline Phosphatase 36 L (46-116) U/L Total Protein 5.1 L (6.4-8.2) g/dl Albumin 2.1 L (3.4-5.0) g/dl Globulin 3.0 gm/dL Albumin/Globulin Ratio 0.7 L (1-2) Triglycerides (<150) mg/dL 09/05/20 09/05/20 09/05/20 Range/Units 06:39 07:14 08:11 WBC (3.98-10.04) K/mm3 RBC (3.98-5.22) M/mm3 Hgb (11.2-15.7) gm/dl Hct (34.1-44.9) % MCV (79.4-94.8) fl MCH (25.6-32.2) pg MCHC (32.2-35.5) g/dl RDW Std Deviation (36.4-46.3) fL Plt Count (182-369) K/mm3 MPV (9.4-12.3) fl Neut % (Auto) (34.0-71.1) % Lymph % (Auto) (19.3-51.7) % [place] % (Auto) (4.7-12.5) % Eos % (Auto) (0.7-5.8) Baso % (Auto) (0.1-1.2) % Neut # (Auto) (1.56-6.13) K/mm3 Lymph # (Auto) (1.18-3.74) K/mm3 [place] # (Auto) (0.24-0.36) K/mm3 Eos # (Auto) (0.04-0.36) K/mm3 Baso # (Auto) (0.01-0.08) K/mm3 Manual Slide Review Sodium (136-145) mEq/L Potassium (3.5-5.1) mEq/L Chloride (98-107) mEq/L Carbon Dioxide (21-32) mEq/L Anion Gap (5-15) BUN (7-18) mg/dL Creatinine (0.55-1.02) mg/dL Est Cr Clr Drug Dosing mL/min Estimated GFR (MDRD) (>60) mL/min BUN/Creatinine Ratio (14-18) Glucose (70-99) mg/dL POC Glucose 131 H 127 H (70-99) mg/dL Calcium (8.5-10.1) mg/dL Magnesium (1.8-2.4) mg/dL Total Bilirubin (0.2-1.0) mg/dL AST (15-37) U/L ALT (14-59) U/L Alkaline Phosphatase (46-116) U/L Total Protein (6.4-8.2) g/dl Albumin (3.4-5.0) g/dl Globulin gm/dL Albumin/Globulin Ratio (1-2) Triglycerides 537 H (<150) mg/dL 09/05/20 09/05/20 09/05/20 Range/Units 10:01 11:55 13:40 WBC (3.98-10.04) K/mm3 RBC (3.98-5.22) M/mm3 Hgb (11.2-15.7) gm/dl Hct (34.1-44.9) % MCV (79.4-94.8) fl MCH (25.6-32.2) pg MCHC (32.2-35.5) g/dl RDW Std Deviation (36.4-46.3) fL Plt Count (182-369) K/mm3 MPV (9.4-12.3) fl Neut % (Auto) (34.0-71.1) % Lymph % (Auto) (19.3-51.7) % [place] % (Auto) (4.7-12.5) % Eos % (Auto) (0.7-5.8) Baso % (Auto) (0.1-1.2) % Neut # (Auto) (1.56-6.13) K/mm3 Lymph # (Auto) (1.18-3.74) K/mm3 [place] # (Auto) (0.24-0.36) K/mm3 Eos # (Auto) (0.04-0.36) K/mm3 Baso # (Auto) (0.01-0.08) K/mm3 Manual Slide Review Sodium (136-145) mEq/L Potassium (3.5-5.1) mEq/L Chloride (98-107) mEq/L Carbon Dioxide (21-32) mEq/L Anion Gap (5-15) BUN (7-18) mg/dL Creatinine (0.55-1.02) mg/dL Est Cr Clr Drug Dosing mL/min Estimated GFR (MDRD) (>60) mL/min BUN/Creatinine Ratio (14-18) Glucose (70-99) mg/dL POC Glucose 127 H 117 H (70-99) mg/dL Calcium (8.5-10.1) mg/dL Magnesium (1.8-2.4) mg/dL Total Bilirubin (0.2-1.0) mg/dL AST (15-37) U/L ALT (14-59) U/L Alkaline Phosphatase (46-116) U/L Total Protein (6.4-8.2) g/dl Albumin (3.4-5.0) g/dl Globulin gm/dL Albumin/Globulin Ratio (1-2) Triglycerides 632 H (<150) mg/dL 09/05/20 09/05/20 09/05/20 Range/Units 14:19 16:11 17:02 WBC (3.98-10.04) K/mm3 RBC (3.98-5.22) M/mm3 Hgb (11.2-15.7) gm/dl Hct (34.1-44.9) % MCV (79.4-94.8) fl MCH (25.6-32.2) pg MCHC (32.2-35.5) g/dl RDW Std Deviation (36.4-46.3) fL Plt Count (182-369) K/mm3 MPV (9.4-12.3) fl Neut % (Auto) (34.0-71.1) % Lymph % (Auto) (19.3-51.7) % [place] % (Auto) (4.7-12.5) % Eos % (Auto) (0.7-5.8) Baso % (Auto) (0.1-1.2) % Neut # (Auto) (1.56-6.13) K/mm3 Lymph # (Auto) (1.18-3.74) K/mm3 [place] # (Auto) (0.24-0.36) K/mm3 Eos # (Auto) (0.04-0.36) K/mm3 Baso # (Auto) (0.01-0.08) K/mm3 Manual Slide Review Sodium (136-145) mEq/L Potassium (3.5-5.1) mEq/L Chloride (98-107) mEq/L Carbon Dioxide (21-32) mEq/L Anion Gap (5-15) BUN (7-18) mg/dL Creatinine (0.55-1.02) mg/dL Est Cr Clr Drug Dosing mL/min Estimated GFR (MDRD) (>60) mL/min BUN/Creatinine Ratio (14-18) Glucose (70-99) mg/dL POC Glucose 115 H 102 H 98 (70-99) mg/dL Calcium (8.5-10.1) mg/dL Magnesium (1.8-2.4) mg/dL Total Bilirubin (0.2-1.0) mg/dL AST (15-37) U/L ALT (14-59) U/L Alkaline Phosphatase (46-116) U/L Total Protein (6.4-8.2) g/dl Albumin (3.4-5.0) g/dl Globulin gm/dL Albumin/Globulin Ratio (1-2) Triglycerides (<150) mg/dL 09/05/20 Range/Units 17:55 WBC (3.98-10.04) K/mm3 RBC (3.98-5.22) M/mm3 Hgb (11.2-15.7) gm/dl Hct (34.1-44.9) % MCV (79.4-94.8) fl MCH (25.6-32.2) pg MCHC (32.2-35.5) g/dl RDW Std Deviation (36.4-46.3) fL Plt Count (182-369) K/mm3 MPV (9.4-12.3) fl Neut % (Auto) (34.0-71.1) % Lymph % (Auto) (19.3-51.7) % [place] % (Auto) (4.7-12.5) % Eos % (Auto) (0.7-5.8) Baso % (Auto) (0.1-1.2) % Neut # (Auto) (1.56-6.13) K/mm3 Lymph # (Auto) (1.18-3.74) K/mm3 [place] # (Auto) (0.24-0.36) K/mm3 Eos # (Auto) (0.04-0.36) K/mm3 Baso # (Auto) (0.01-0.08) K/mm3 Manual Slide Review Sodium (136-145) mEq/L Potassium (3.5-5.1) mEq/L Chloride (98-107) mEq/L Carbon Dioxide (21-32) mEq/L Anion Gap (5-15) BUN (7-18) mg/dL Creatinine (0.55-1.02) mg/dL Est Cr Clr Drug Dosing mL/min Estimated GFR (MDRD) (>60) mL/min BUN/Creatinine Ratio (14-18) Glucose (70-99) mg/dL POC Glucose 141 H (70-99) mg/dL Calcium (8.5-10.1) mg/dL Magnesium (1.8-2.4) mg/dL Total Bilirubin (0.2-1.0) mg/dL AST (15-37) U/L ALT (14-59) U/L Alkaline Phosphatase (46-116) U/L Total Protein (6.4-8.2) g/dl Albumin (3.4-5.0) g/dl Globulin gm/dL Albumin/Globulin Ratio (1-2) Triglycerides (<150) mg/dL Result Diagrams: 09/05/20 06:39 09/05/20 06:39 Sepsis Event Note - Focused Exam Vital Signs: Vital Signs Temp Pulse Pulse Resp BP BP Pulse Ox 09/05/20 17:00 91 95 09/05/20 16:15 94 150/87 H 95 09/05/20 16:14 94 98 09/05/20 16:00 97.3 F 88 99 20 97 09/05/20 15:00 86 95 09/05/20 14:00 91 94 L 09/05/20 13:12 97.6 F 93 106 H 20 140/84 140/84 97 09/05/20 13:11 94 98 09/05/20 13:00 88 97 09/05/20 12:00 94 95 09/05/20 11:00 89 95 09/05/20 10:01 93 96 09/05/20 09:00 95 97 09/05/20 08:14 92 132/84 96 09/05/20 08:13 91 97 09/05/20 08:00 97.3 F 91 90 20 132/84 95 09/05/20 07:50 09/05/20 07:00 89 93 L 09/05/20 06:30 Pulse Ox 09/05/20 17:00 09/05/20 16:15 09/05/20 16:14 09/05/20 16:00 09/05/20 15:00 09/05/20 14:00 09/05/20 13:12 09/05/20 13:11 09/05/20 13:00 09/05/20 12:00 09/05/20 11:00 09/05/20 10:01 09/05/20 09:00 09/05/20 08:14 09/05/20 08:13 09/05/20 08:00 09/05/20 07:50 95 09/05/20 07:00 09/05/20 06:30 98 - My Orders Last 24 Hours: My Active Orders 09/04/20 17:20 Oxygen Therapy [RC] ASDIRECTED 09/05/20 00:24 Simethicone 80 mg PO Q6H PRN - Plan Plan:: Case discussed in full. Agree with evaluation, assessment and plan.
[2020-09-05] MEDS: Potassium Chloride 10 MEQ in Premix Bag 1 BAG IV SCH ×6 (07:52→23:15)
[2020-09-05] MEDS: Fenofibrate 54 MG Tab PO SCH (08:32)
[2020-09-05] MEDS: Enoxaparin 40 MG/0.4 ML Syringe SUBCUT SCH (08:32)
[2020-09-05] MEDS: Dextrose 10% in Water 1,000 ML IV SCH (15:06)
[2020-09-05] MEDS: 50% Dextrose in Water 50 ML Syringe IVPUSH PRN ×3 (17:07→23:08)
[2020-09-05] MEDS: HYDROmorphone 1 MG/ML Syringe IVPUSH PRN (19:04)
[2020-09-05] MEDS: Rosuvastatin 10 MG Tab PO SCH (20:21)
[2020-09-05] MEDS ORDERED: Potassium Chloride 20 MEQ Tab.ER PO ONE (21:20)
[2020-09-06] MEDS: Potassium Chloride 10 MEQ in Premix Bag 1 BAG IV SCH ×2 (00:56→02:40)
[2020-09-06] MEDS: 50% Dextrose in Water 50 ML Syringe IVPUSH PRN ×4 (02:02→12:14)
[2020-09-06] MEDS: Dextrose 10% in Water 1,000 ML IV SCH (03:39)
[2020-09-06] MEDS ORDERED: Potassium Chloride 20 MEQ Tab.ER PO ONE ×2 (07:21→15:45)
[2020-09-06] MEDS ORDERED: Furosemide 40 MG/4 ML VIAL IVPUSH ONE ×2 (07:23→14:00)
[2020-09-06] MEDS: Acetaminophen/Butalbital/Caffeine 325-50-40 MG Tab PO PRN ×2 (07:55→20:16)
[2020-09-06] MEDS: Enoxaparin 40 MG/0.4 ML Syringe SUBCUT SCH (08:05)
[2020-09-06] MEDS: Fenofibrate 54 MG Tab PO SCH (08:18)
--- NOTE | 2020-09-06 08:30 | PCM.PN ---
- General Info Date of Service: 09/06/20 Admission Dx/Problem (Free Text): Admission Diagnosis/Problem Admission Diagnosis/Problem Abdominal pain Subjective Update: No acute events overnight. Patient states that she has a headache this morning which is most bothersome to her. Feels a little short of breath especially with lying down. Continues to have some upper abdominal discomfort and general feelings of bloating. Functional Status: Reports: Pain Controlled - Patient Data Vitals - Most Recent: Last Vital Signs Temp 97.4 F 09/06/20 00:00 Pulse 88 09/06/20 01:00 Resp 20 09/06/20 04:00 BP 142/86 H 09/06/20 04:00 Pulse Ox 98 09/06/20 04:00 Weight - Most Recent: 193 lb 9.6 oz I&O - Last 24 Hours: Intake & Output 09/05/20 09/06/20 09/06/20 22:59 06:59 14:59 Intake Total 2326 1785 Output Total 2750 1800 Balance -424 -15 Lab Results Last 24 Hours: Laboratory Results - last 24 hr 09/05/20 09/05/20 09/05/20 Range/Units 10:01 11:55 13:40 Sodium (136-145) mEq/L Potassium (3.5-5.1) mEq/L Chloride (98-107) mEq/L Carbon Dioxide (21-32) mEq/L Anion Gap (5-15) BUN (7-18) mg/dL Creatinine (0.55-1.02) mg/dL Est Cr Clr Drug Dosing mL/min Estimated GFR (MDRD) (>60) mL/min BUN/Creatinine Ratio (14-18) Glucose (70-99) mg/dL POC Glucose 127 H 117 H (70-99) mg/dL Calcium (8.5-10.1) mg/dL Magnesium (1.8-2.4) mg/dL Total Bilirubin (0.2-1.0) mg/dL AST (15-37) U/L ALT (14-59) U/L Alkaline Phosphatase (46-116) U/L Total Protein (6.4-8.2) g/dl Albumin (3.4-5.0) g/dl Globulin gm/dL Albumin/Globulin Ratio (1-2) Triglycerides 632 H (<150) mg/dL 09/05/20 09/05/20 09/05/20 Range/Units 14:19 16:11 17:02 Sodium (136-145) mEq/L Potassium (3.5-5.1) mEq/L Chloride (98-107) mEq/L Carbon Dioxide (21-32) mEq/L Anion Gap (5-15) BUN (7-18) mg/dL Creatinine (0.55-1.02) mg/dL Est Cr Clr Drug Dosing mL/min Estimated GFR (MDRD) (>60) mL/min BUN/Creatinine Ratio (14-18) Glucose (70-99) mg/dL POC Glucose 115 H 102 H 98 (70-99) mg/dL Calcium (8.5-10.1) mg/dL Magnesium (1.8-2.4) mg/dL Total Bilirubin (0.2-1.0) mg/dL AST (15-37) U/L ALT (14-59) U/L Alkaline Phosphatase (46-116) U/L Total Protein (6.4-8.2) g/dl Albumin (3.4-5.0) g/dl Globulin gm/dL Albumin/Globulin Ratio (1-2) Triglycerides (<150) mg/dL 09/05/20 09/05/20 09/05/20 Range/Units 17:55 18:59 19:50 Sodium 140 (136-145) mEq/L Potassium 2.8 L (3.5-5.1) mEq/L Chloride 105 (98-107) mEq/L Carbon Dioxide 27 (21-32) mEq/L Anion Gap 10.8 (5-15) BUN 6 L (7-18) mg/dL Creatinine 0.8 (0.55-1.02) mg/dL Est Cr Clr Drug Dosing 58.63 mL/min Estimated GFR (MDRD) > 60 (>60) mL/min BUN/Creatinine Ratio 7.5 L (14-18) Glucose 101 H (70-99) mg/dL POC Glucose 141 H 111 H (70-99) mg/dL Calcium 6.3 L (8.5-10.1) mg/dL Magnesium (1.8-2.4) mg/dL Total Bilirubin (0.2-1.0) mg/dL AST (15-37) U/L ALT (14-59) U/L Alkaline Phosphatase (46-116) U/L Total Protein (6.4-8.2) g/dl Albumin (3.4-5.0) g/dl Globulin gm/dL Albumin/Globulin Ratio (1-2) Triglycerides 545 H (<150) mg/dL 09/05/20 09/05/20 09/05/20 Range/Units 20:02 21:05 22:03 Sodium (136-145) mEq/L Potassium (3.5-5.1) mEq/L Chloride (98-107) mEq/L Carbon Dioxide (21-32) mEq/L Anion Gap (5-15) BUN (7-18) mg/dL Creatinine (0.55-1.02) mg/dL Est Cr Clr Drug Dosing mL/min Estimated GFR (MDRD) (>60) mL/min BUN/Creatinine Ratio (14-18) Glucose (70-99) mg/dL POC Glucose 98 139 H 117 H (70-99) mg/dL Calcium (8.5-10.1) mg/dL Magnesium (1.8-2.4) mg/dL Total Bilirubin (0.2-1.0) mg/dL AST (15-37) U/L ALT (14-59) U/L Alkaline Phosphatase (46-116) U/L Total Protein (6.4-8.2) g/dl Albumin (3.4-5.0) g/dl Globulin gm/dL Albumin/Globulin Ratio (1-2) Triglycerides (<150) mg/dL 09/05/20 09/06/20 09/06/20 Range/Units 23:08 00:02 01:03 Sodium (136-145) mEq/L Potassium (3.5-5.1) mEq/L Chloride (98-107) mEq/L Carbon Dioxide (21-32) mEq/L Anion Gap (5-15) BUN (7-18) mg/dL Creatinine (0.55-1.02) mg/dL Est Cr Clr Drug Dosing mL/min Estimated GFR (MDRD) (>60) mL/min BUN/Creatinine Ratio (14-18) Glucose (70-99) mg/dL POC Glucose 89 116 H 111 H (70-99) mg/dL Calcium (8.5-10.1) mg/dL Magnesium (1.8-2.4) mg/dL Total Bilirubin (0.2-1.0) mg/dL AST (15-37) U/L ALT (14-59) U/L Alkaline Phosphatase (46-116) U/L Total Protein (6.4-8.2) g/dl Albumin (3.4-5.0) g/dl Globulin gm/dL Albumin/Globulin Ratio (1-2) Triglycerides (<150) mg/dL 09/06/20 09/06/20 09/06/20 Range/Units 02:01 03:02 04:02 Sodium (136-145) mEq/L Potassium (3.5-5.1) mEq/L Chloride (98-107) mEq/L Carbon Dioxide (21-32) mEq/L Anion Gap (5-15) BUN (7-18) mg/dL Creatinine (0.55-1.02) mg/dL Est Cr Clr Drug Dosing mL/min Estimated GFR (MDRD) (>60) mL/min BUN/Creatinine Ratio (14-18) Glucose (70-99) mg/dL POC Glucose 89 136 H 103 H (70-99) mg/dL Calcium (8.5-10.1) mg/dL Magnesium (1.8-2.4) mg/dL Total Bilirubin (0.2-1.0) mg/dL AST (15-37) U/L ALT (14-59) U/L Alkaline Phosphatase (46-116) U/L Total Protein (6.4-8.2) g/dl Albumin (3.4-5.0) g/dl Globulin gm/dL Albumin/Globulin Ratio (1-2) Triglycerides (<150) mg/dL 09/06/20 09/06/20 09/06/20 Range/Units 05:00 05:47 06:05 Sodium 140 (136-145) mEq/L Potassium 3.2 L (3.5-5.1) mEq/L Chloride 105 (98-107) mEq/L Carbon Dioxide 25 (21-32) mEq/L Anion Gap 13.2 (5-15) BUN 4 L (7-18) mg/dL Creatinine 0.7 (0.55-1.02) mg/dL Est Cr Clr Drug Dosing 67.01 mL/min Estimated GFR (MDRD) > 60 (>60) mL/min BUN/Creatinine Ratio 5.7 L (14-18) Glucose 148 H (70-99) mg/dL POC Glucose 79 139 H (70-99) mg/dL Calcium 6.9 L (8.5-10.1) mg/dL Magnesium 2.1 (1.8-2.4) mg/dL Total Bilirubin 0.4 (0.2-1.0) mg/dL AST 24 (15-37) U/L ALT 57 (14-59) U/L Alkaline Phosphatase 50 (46-116) U/L Total Protein 5.7 L (6.4-8.2) g/dl Albumin 2.3 L (3.4-5.0) g/dl Globulin 3.4 gm/dL Albumin/Globulin Ratio 0.7 L (1-2) Triglycerides 482 H (<150) mg/dL 09/06/20 09/06/20 Range/Units 07:01 08:12 Sodium (136-145) mEq/L Potassium (3.5-5.1) mEq/L Chloride (98-107) mEq/L Carbon Dioxide (21-32) mEq/L Anion Gap (5-15) BUN (7-18) mg/dL Creatinine (0.55-1.02) mg/dL Est Cr Clr Drug Dosing mL/min Estimated GFR (MDRD) (>60) mL/min BUN/Creatinine Ratio (14-18) Glucose (70-99) mg/dL POC Glucose 105 H 74 (70-99) mg/dL Calcium (8.5-10.1) mg/dL Magnesium (1.8-2.4) mg/dL Total Bilirubin (0.2-1.0) mg/dL AST (15-37) U/L ALT (14-59) U/L Alkaline Phosphatase (46-116) U/L Total Protein (6.4-8.2) g/dl Albumin (3.4-5.0) g/dl Globulin gm/dL Albumin/Globulin Ratio (1-2) Triglycerides (<150) mg/dL Med Orders - Current: Current Medications Acetaminophen (Acetaminophen 325 Mg Tab) 650 mg PO Q6H PRN PRN Reason: Pain (mild 1-3) Last Admin: 09/05/20 11:44 Dose: 650 mg Documented by: Acetaminophen/Butalbital/Caffeine (Acetaminophen/Butalbital/Caffeine 325-50-40 Mg Tab) 1 tab PO Q4H PRN PRN Reason: Headache Last Admin: 09/06/20 07:55 Dose: 1 tab Documented by: Dextrose/Water (50% Dextrose In Water 50 Ml Syringe) 50 ml IVPUSH ASDIRECTED PRN PRN Reason: Hypoglycemia Last Admin: 09/06/20 08:19 Dose: 50 ml Documented by: Enoxaparin Sodium (Enoxaparin 40 Mg/0.4 Ml Syringe) 40 mg SUBCUT DAILY [facility] Last Admin: 09/06/20 08:05 Dose: 40 mg Documented by: Fenofibrate (Fenofibrate 54 Mg Tab) 54 mg PO DAILY [facility] Last Admin: 09/06/20 08:18 Dose: 54 mg Documented by: Furosemide (Furosemide 40 Mg/4 Ml Vial) 40 mg IVPUSH NOW ONE Stop: 09/06/20 14:01 Hydromorphone HCl (Hydromorphone 1 Mg/Ml Syringe) 2 mg IVPUSH Q4H PRN PRN Reason: Pain Last Admin: 09/05/20 19:04 Dose: 2 mg Documented by: Dextrose/Water (Dextrose 10% In Water) 1,000 mls @ 80 mls/hr IV ASDIRECTED [facility] Last Admin: 09/06/20 03:39 Dose: 80 mls/hr Documented by: Insulin Human Regular 100 unit (/ Sodium Chloride) 100 mls @ 4.536 mls/hr IV ASDIRECTED [facility] Ondansetron HCl (Ondansetron 4 Mg/2 Ml Sdv) 4 mg IV Q6H PRN PRN Reason: Nausea/Vomiting Last Admin: 09/04/20 05:30 Dose: 4 mg Documented by: Oxycodone HCl (Oxycodone 5 Mg Tab) 10 mg PO Q6H PRN PRN Reason: Pain (moderate 4-6) Last Admin: 09/05/20 02:03 Dose: 10 mg Documented by: Rosuvastatin Calcium (Rosuvastatin 10 Mg Tab) 20 mg PO BEDTIME [facility] Last Admin: 09/05/20 20:21 Dose: 20 mg Documented by: Simethicone (Simethicone 80 Mg Tab.Chew) 80 mg PO Q6H PRN PRN Reason: Gas Last Admin: 09/05/20 00:36 Dose: 80 mg Documented by: Sodium Chloride (Sodium Chloride 0.9% 10 Ml Syringe) 10 ml FLUSH ASDIRECTED PRN PRN Reason: Keep Vein Open Discontinued Medications Dextrose/Water (50% Dextrose In Water 50 Ml Syringe) 50 ml IVPUSH ASDIRECTED ONE Stop: 09/04/20 16:13 Last Admin: 09/04/20 16:20 Dose: 50 ml Documented by: Dextrose/Water (50% Dextrose In Water 50 Ml Syringe) 50 ml IVPUSH ASDIRECTED ONE Stop: 09/04/20 20:31 Last Admin: 09/04/20 20:41 Dose: 50 ml Documented by: Furosemide (Furosemide 40 Mg/4 Ml Vial) 40 mg IVPUSH NOW ONE Stop: 09/05/20 06:23 Last Admin: 09/05/20 06:46 Dose: 40 mg Documented by: Furosemide (Furosemide 40 Mg/4 Ml Vial) 40 mg IVPUSH ONETIME ONE Stop: 09/05/20 13:01 Last Admin: 09/05/20 13:10 Dose: 40 mg Documented by: Furosemide (Furosemide 40 Mg/4 Ml Vial) 40 mg IVPUSH NOW ONE Stop: 09/06/20 07:24 Last Admin: 09/06/20 07:56 Dose: 40 mg Documented by: Hydromorphone HCl (Hydromorphone 0.5 Mg/0.5 Ml Syringe) 0.5 mg IVPUSH ONETIME ONE Stop: 09/03/20 14:37 Last Admin: 09/03/20 14:48 Dose: 0.5 mg Documented by: Hydromorphone HCl (Hydromorphone 1 Mg/Ml Syringe) 2 mg IVPUSH ONETIME ONE Stop: 09/03/20 19:01 Last Admin: 09/03/20 19:11 Dose: 2 mg Documented by: Hydromorphone HCl (Hydromorphone 1 Mg/Ml Syringe) Confirm Administered Dose 2 mg .ROUTE .STK-MED ONE Stop: 09/03/20 19:04 Last Admin: 09/03/20 19:11 Dose: Not Given Documented by: Sodium Chloride (Normal Saline) 1,000 mls @ 150 mls/hr IV ASDIRECTED [facility] Last Admin: 09/03/20 13:07 Dose: 150 mls/hr Documented by: Sodium Chloride (Normal Saline) 1,000 mls @ 250 mls/hr IV ASDIRECTED [facility] Last Admin: 09/04/20 12:15 Dose: 250 mls/hr Documented by: Insulin Human Regular 100 unit (/ Sodium Chloride) 100 mls @ 4.203 mls/hr IV ASDIRECTED [facility] Last Infusion: 09/05/20 15:06 Dose: 0.05 units/kg/hr, 4.5 mls/hr Documented by: Dextrose/Sodium Chloride (Dextrose 5%-Normal Saline) 1,000 mls @ 100 mls/hr IV ASDIRECTED [facility] Last Admin: 09/04/20 12:15 Dose: 100 mls/hr Documented by: Magnesium Sulfate 2 gm/ Premix 50 mls @ 25 mls/hr IV ONETIME ONE Stop: 09/04/20 13:59 Last Admin: 09/04/20 12:10 Dose: 25 mls/hr Documented by: Dextrose/Sodium Chloride (Dextrose 5%-Normal Saline) 1,000 mls @ 150 mls/hr IV ASDIRECTED [facility] Last Admin: 09/05/20 09:43 Dose: 150 mls/hr Documented by: Sodium Chloride (Normal Saline) 1,000 mls @ 200 mls/hr IV ASDIRECTED [facility] Last Admin: 09/05/20 03:13 Dose: 200 mls/hr Documented by: Potassium Chloride 10 meq/ (Premix) 100 mls @ 100 mls/hr IV Q1H [facility] Stop: 09/05/20 11:29 Last Admin: 09/05/20 13:57 Dose: 50 mls/hr Documented by: Potassium Chloride 10 meq/ (Premix) 100 mls @ 100 mls/hr IV Q1H [facility] Stop: 09/06/20 01:29 Last Admin: 09/06/20 02:40 Dose: 60 mls/hr Documented by: Morphine Sulfate (Morphine 2 Mg/Ml Syringe) 2 mg IVPUSH Q2H PRN PRN Reason: Pain (severe 7-10) Last Admin: 09/03/20 13:06 Dose: 2 mg Documented by: Morphine Sulfate (Morphine 4 Mg/Ml Syringe) 4 mg IVPUSH Q2H PRN PRN Reason: Pain (severe 7-10) Last Admin: 09/03/20 17:07 Dose: 4 mg Documented by: Ondansetron HCl (Ondansetron 4 Mg/2 Ml Sdv) 4 mg IVPUSH ONETIME ONE Stop: 09/03/20 14:39 Last Admin: 09/03/20 14:48 Dose: 4 mg Documented by: Oxycodone HCl (Oxycodone 5 Mg Tab) 5 mg PO Q6H PRN PRN Reason: Pain (moderate 4-6) Oxycodone HCl (Oxycodone 5 Mg Tab) 5 mg PO ONETIME ONE Stop: 09/03/20 14:40 Last Admin: 09/03/20 14:48 Dose: 5 mg Documented by: Potassium Chloride (Potassium Chloride 20 Meq Tab.Er) 40 meq PO ONETIME ONE Stop: 09/05/20 21:21 Last Admin: 09/05/20 21:55 Dose: 40 meq Documented by: Potassium Chloride (Potassium Chloride 20 Meq Tab.Er) 40 meq PO ONETIME ONE Stop: 09/06/20 07:22 Last Admin: 09/06/20 07:57 Dose: 40 meq Documented by: Rosuvastatin Calcium (Rosuvastatin 10 Mg Tab) 10 mg PO BEDTIME [facility] Rosuvastatin Calcium (Rosuvastatin 10 Mg Tab) 5 mg PO BEDTIME [facility] Sodium Chloride (Sodium Chloride 0.9% 10 Ml Syringe) 10 ml FLUSH ASDIRECTED PRN PRN Reason: Keep Vein Open - Exam Quality Assessment: DVT Prophylaxis General: Alert, No Acute Distress Lungs: Clear to Auscultation, Decreased Breath Sounds (Some diminished sounds at bases.) Cardiovascular: Regular Rate, Regular Rhythm GI/Abdominal Exam: Normal Bowel Sounds, Soft, Tender (Mild tenderness in the epigastric region with deep palpation.). No: Guarding, Rebound Extremities: Normal Inspection, Pedal Edema Skin: Warm, Dry Neurological: No New Focal Deficit - Patient Data Lab Results Last 24 hrs: Laboratory Results - last 24 hr 09/05/20 09/05/20 09/05/20 Range/Units 10:01 11:55 13:40 Sodium (136-145) mEq/L Potassium (3.5-5.1) mEq/L Chloride (98-107) mEq/L Carbon Dioxide (21-32) mEq/L Anion Gap (5-15) BUN (7-18) mg/dL Creatinine (0.55-1.02) mg/dL Est Cr Clr Drug Dosing mL/min Estimated GFR (MDRD) (>60) mL/min BUN/Creatinine Ratio (14-18) Glucose (70-99) mg/dL POC Glucose 127 H 117 H (70-99) mg/dL Calcium (8.5-10.1) mg/dL Magnesium (1.8-2.4) mg/dL Total Bilirubin (0.2-1.0) mg/dL AST (15-37) U/L ALT (14-59) U/L Alkaline Phosphatase (46-116) U/L Total Protein (6.4-8.2) g/dl Albumin (3.4-5.0) g/dl Globulin gm/dL Albumin/Globulin Ratio (1-2) Triglycerides 632 H (<150) mg/dL 09/05/20 09/05/20 09/05/20 Range/Units 14:19 16:11 17:02 Sodium (136-145) mEq/L Potassium (3.5-5.1) mEq/L Chloride (98-107) mEq/L Carbon Dioxide (21-32) mEq/L Anion Gap (5-15) BUN (7-18) mg/dL Creatinine (0.55-1.02) mg/dL Est Cr Clr Drug Dosing mL/min Estimated GFR (MDRD) (>60) mL/min BUN/Creatinine Ratio (14-18) Glucose (70-99) mg/dL POC Glucose 115 H 102 H 98 (70-99) mg/dL Calcium (8.5-10.1) mg/dL Magnesium (1.8-2.4) mg/dL Total Bilirubin (0.2-1.0) mg/dL AST (15-37) U/L ALT (14-59) U/L Alkaline Phosphatase (46-116) U/L Total Protein (6.4-8.2) g/dl Albumin (3.4-5.0) g/dl Globulin gm/dL Albumin/Globulin Ratio (1-2) Triglycerides (<150) mg/dL 09/05/20 09/05/20 09/05/20 Range/Units 17:55 18:59 19:50 Sodium 140 (136-145) mEq/L Potassium 2.8 L (3.5-5.1) mEq/L Chloride 105 (98-107) mEq/L Carbon Dioxide 27 (21-32) mEq/L Anion Gap 10.8 (5-15) BUN 6 L (7-18) mg/dL Creatinine 0.8 (0.55-1.02) mg/dL Est Cr Clr Drug Dosing 58.63 mL/min Estimated GFR (MDRD) > 60 (>60) mL/min BUN/Creatinine Ratio 7.5 L (14-18) Glucose 101 H (70-99) mg/dL POC Glucose 141 H 111 H (70-99) mg/dL Calcium 6.3 L (8.5-10.1) mg/dL Magnesium (1.8-2.4) mg/dL Total Bilirubin (0.2-1.0) mg/dL AST (15-37) U/L ALT (14-59) U/L Alkaline Phosphatase (46-116) U/L Total Protein (6.4-8.2) g/dl Albumin (3.4-5.0) g/dl Globulin gm/dL Albumin/Globulin Ratio (1-2) Triglycerides 545 H (<150) mg/dL 09/05/20 09/05/20 09/05/20 Range/Units 20:02 21:05 22:03 Sodium (136-145) mEq/L Potassium (3.5-5.1) mEq/L Chloride (98-107) mEq/L Carbon Dioxide (21-32) mEq/L Anion Gap (5-15) BUN (7-18) mg/dL Creatinine (0.55-1.02) mg/dL Est Cr Clr Drug Dosing mL/min Estimated GFR (MDRD) (>60) mL/min BUN/Creatinine Ratio (14-18) Glucose (70-99) mg/dL POC Glucose 98 139 H 117 H (70-99) mg/dL Calcium (8.5-10.1) mg/dL Magnesium (1.8-2.4) mg/dL Total Bilirubin (0.2-1.0) mg/dL AST (15-37) U/L ALT (14-59) U/L Alkaline Phosphatase (46-116) U/L Total Protein (6.4-8.2) g/dl Albumin (3.4-5.0) g/dl Globulin gm/dL Albumin/Globulin Ratio (1-2) Triglycerides (<150) mg/dL 09/05/20 09/06/20 09/06/20 Range/Units 23:08 00:02 01:03 Sodium (136-145) mEq/L Potassium (3.5-5.1) mEq/L Chloride (98-107) mEq/L Carbon Dioxide (21-32) mEq/L Anion Gap (5-15) BUN (7-18) mg/dL Creatinine (0.55-1.02) mg/dL Est Cr Clr Drug Dosing mL/min Estimated GFR (MDRD) (>60) mL/min BUN/Creatinine Ratio (14-18) Glucose (70-99) mg/dL POC Glucose 89 116 H 111 H (70-99) mg/dL Calcium (8.5-10.1) mg/dL Magnesium (1.8-2.4) mg/dL Total Bilirubin (0.2-1.0) mg/dL AST (15-37) U/L ALT (14-59) U/L Alkaline Phosphatase (46-116) U/L Total Protein (6.4-8.2) g/dl Albumin (3.4-5.0) g/dl Globulin gm/dL Albumin/Globulin Ratio (1-2) Triglycerides (<150) mg/dL 09/06/20 09/06/20 09/06/20 Range/Units 02:01 03:02 04:02 Sodium (136-145) mEq/L Potassium (3.5-5.1) mEq/L Chloride (98-107) mEq/L Carbon Dioxide (21-32) mEq/L Anion Gap (5-15) BUN (7-18) mg/dL Creatinine (0.55-1.02) mg/dL Est Cr Clr Drug Dosing mL/min Estimated GFR (MDRD) (>60) mL/min BUN/Creatinine Ratio (14-18) Glucose (70-99) mg/dL POC Glucose 89 136 H 103 H (70-99) mg/dL Calcium (8.5-10.1) mg/dL Magnesium (1.8-2.4) mg/dL Total Bilirubin (0.2-1.0) mg/dL AST (15-37) U/L ALT (14-59) U/L Alkaline Phosphatase (46-116) U/L Total Protein (6.4-8.2) g/dl Albumin (3.4-5.0) g/dl Globulin gm/dL Albumin/Globulin Ratio (1-2) Triglycerides (<150) mg/dL 09/06/20 09/06/20 09/06/20 Range/Units 05:00 05:47 06:05 Sodium 140 (136-145) mEq/L Potassium 3.2 L (3.5-5.1) mEq/L Chloride 105 (98-107) mEq/L Carbon Dioxide 25 (21-32) mEq/L Anion Gap 13.2 (5-15) BUN 4 L (7-18) mg/dL Creatinine 0.7 (0.55-1.02) mg/dL Est Cr Clr Drug Dosing 67.01 mL/min Estimated GFR (MDRD) > 60 (>60) mL/min BUN/Creatinine Ratio 5.7 L (14-18) Glucose 148 H (70-99) mg/dL POC Glucose 79 139 H (70-99) mg/dL Calcium 6.9 L (8.5-10.1) mg/dL Magnesium 2.1 (1.8-2.4) mg/dL Total Bilirubin 0.4 (0.2-1.0) mg/dL AST 24 (15-37) U/L ALT 57 (14-59) U/L Alkaline Phosphatase 50 (46-116) U/L Total Protein 5.7 L (6.4-8.2) g/dl Albumin 2.3 L (3.4-5.0) g/dl Globulin 3.4 gm/dL Albumin/Globulin Ratio 0.7 L (1-2) Triglycerides 482 H (<150) mg/dL 09/06/20 09/06/20 Range/Units 07:01 08:12 Sodium (136-145) mEq/L Potassium (3.5-5.1) mEq/L Chloride (98-107) mEq/L Carbon Dioxide (21-32) mEq/L Anion Gap (5-15) BUN (7-18) mg/dL Creatinine (0.55-1.02) mg/dL Est Cr Clr Drug Dosing mL/min Estimated GFR (MDRD) (>60) mL/min BUN/Creatinine Ratio (14-18) Glucose (70-99) mg/dL POC Glucose 105 H 74 (70-99) mg/dL Calcium (8.5-10.1) mg/dL Magnesium (1.8-2.4) mg/dL Total Bilirubin (0.2-1.0) mg/dL AST (15-37) U/L ALT (14-59) U/L Alkaline Phosphatase (46-116) U/L Total Protein (6.4-8.2) g/dl Albumin (3.4-5.0) g/dl Globulin gm/dL Albumin/Globulin Ratio (1-2) Triglycerides (<150) mg/dL Result Diagrams: 09/05/20 06:39 09/06/20 05:47 Sepsis Event Note - Evaluation Sepsis Screening Result: No Definite Risk - Focused Exam Vital Signs: Vital Signs Temp Pulse Resp BP Pulse Ox 09/06/20 04:00 20 142/86 H 98 09/06/20 01:00 88 99 09/06/20 00:00 97.4 F 18 138/85 98 09/05/20 23:00 88 99 - Problem List Review Problem List Initiated/Reviewed/Updated: Yes - My Orders Last 24 Hours: My Active Orders 09/06/20 07:20 Acetaminophen/Butalbital/Caff [Fioricet 325-50-40 MG] 1 tab PO Q4H PRN 09/06/20 Lunch Clear Liquid Diet [DIET] 09/06/20 14:00 Furosemide [Lasix] 40 mg IVPUSH NOW ONE - Assessment Assessment:: Assessment - day of admission 09/03/2020 * 60-year-old female who presented to the walk-in clinic at [facility] with abdominal pain * History of hypercholesteremia, hemorrhoids, and high triglycerides. * Pain began yesterday evening and is gotten worse, to the point where she cannot find a comfortable position * Denies any fever, nausea, diarrhea, constipation, blood in stool, dysuria, urinary frequency or urgency * Did vomit this morning. * Has been attempting to eat saltines and yogurt but they did not make her pain any better or worse. * States pain is cramping and consistent in nature * Denies any previous abdominal surgery or history of diverticulosis or diverticulitis * At the walk-in clinic blood pressure was 136/85. Pulse 71. Temp 97.6 Fahre nheit. Respirations 16. Oxygen saturations were 99% on room air. * Labs are obtained: * WBC 15.0. * Hemoglobin 15.5. * Lipase is elevated at 198, with a reference range of 8-78 being normal. * UA is obtained and is grossly negative. * CMP and amylase are still pending. * Abdominal pelvis with contrast is obtained and shows acute pancreatitis without evidence of necrosis and a mildly complex right renal cyst. They recommend follow-up imaging within 6 to 12 months. Additional chronic findings are also noted. * Patient reports significant abdominal pain. * Was subsequently set to our hospital for direct admit for management of her pancreatitis. 09/04/2020 This is a 60-year-old female who was admitted on 09/03/2020 after being seen at the [facility] walk-in [facility] and noted to have pancreatitis. Lipase was only mildly elevated at [address] scans did show stranding around the pancreas. Patient was also noted to have continued significant abdominal pain. Patient has been receiving quite a bit of oral and IV pain medications. Continues to report left upper quadrant pain with some left lower quadrant pain and generalized abdominal pain. She has been receiving IV fluids. She continues to report nausea and vomiting. Dr. Pompa, motor express clerk with [facility] in [place] is contacted for recommendations. He does report their facility is currently on diversion, however he feels that this is something we can handle locally. He suggests we start a insulin infusion on the patient, start D5 NS, and check blood sugars regularly. Goal would be to decrease triglycerides to less than 1000. He reports this can take several days. He also suggests her pain will likely last for several days as well. Because of the insulin infusion patient will need to be upgraded to ICU status. We will start 1 mg/kg/h insulin infusion and also start D5 NS, which we will titrate based on patient's sugars. We will check blood sugars every 1 hour and triglycerides every 12 hours. Patient is aware of this plan and in agreement. She will remain n.p.o. Length of stay likely 3 to 5 days pending response to therapy. Labs today reveal a WBC of 5.04. Hemoglobin is 15.5. Platelets 196,000. Neutrophils are elevated at 77.8. Sodium is 137. Potassium 3.6. Chloride 105. Carbon dioxide is 12. Anion gap is 23.6. BUN is 10. Creatinine 0.6. GFR greater than 60. Glucose is 171. Calcium 6.3. Magnesium 1.7. CRP is 1.6. Liver enzyme testing is not performed as the patient is very lipoic. 09/05/2020 6-year-old female admitted to the floor for pancreatitis and severe hypertriglyceridemia. She was started on insulin drip which has been titrated. Triglycerides today are down to 537 with a goal triglyceride less than 500. She is receiving D5 NS. She did require several boluses of D50 overnight for hypoglycemia. Unfortunately given the required fluids patient did become fluid overloaded and is now edematous and having some desaturations. Lasix was given this morning we will continue Lasix as indicated to try to draw off extra fluid. Once patient is off insulin drip we should be able to substantially decrease and/or discontinue IV fluids. She is very tired as she has been up receiving blood glucose checks through the night. We will change blood glucose checks to every 2 hours as she has been fairly stable. Labs today show WBC of 6.47. Hemoglobin 13.5. Platelet 194,000. Sodium is 141. Potassium is 3.3 and this will be supplemented. Chloride 110. Carbon dioxide 19. Anion gap is 15.3. BUN is 7. Creatinine 0.6. GFR greater than 60. Glucose has been in the low 100s. Calcium is 5.8 however corrected this is 7.2. Protein is 5.1 and albumin is 2.1. We will continue n.p.o. status for now and reassess as the day continues. - Plan Plan:: 09/06/2020. Patient seen and examined at bedside. 1. Hypertriglyceridemia. Continue insulin infusion at current rate with concomitant D10 infusion and dowell pplemental amps of D50 as needed. Triglycerides now slightly below 500. We will continue to run insulin infusion throughout the daytime hours today. Hopeful for continued decrease in overall levels. Hopeful to discontinue insulin infusion later on today Monitor electrolytes and replace as necessary, most especially potassium. 2. Acute pancreatitis secondary to problem #1. Pain mostly controlled. Will allow diet today as the patient is saying that her bowels are more active and she is feeling like eating. Start with clear diet this morning and advance as tolerated. Pain control as necessary. 3. Headache. Likely secondary to caffeine withdrawal and consistent narcotic use. Try to refrain from narcotics. We will allow for Percocet. 4. Shortness of breath. Secondary to iatrogenic volume overload with crystalloid in the setting of acute pancreatitis treatment. Patient is not requiring supplemental oxygen. Continue Lasix for diuresis. DVT prophylaxis with ambulation and chemical prophylaxis. CODE STATUS: Full code.
[2020-09-06] MEDS ORDERED: 50% Dextrose in Water 50 ML SDV IV PRN (13:48)
[2020-09-06] MEDS: Rosuvastatin 10 MG Tab PO SCH (20:16)
--- NOTE | 2020-09-07 07:48 | PCM.DCSUM1 ---
Discharge Summary - Hospital Course Free Text/Narrative:: Hospital course: 1. Acute pancreatitis. Secondary to the familial hypertriglyceridemia. Patient was admitted to the hospitalist service for acute management. The patient was aggressively hydrated with crystalloid at 250 cc/h for 2 days. Patient was kept n.p.o. until the day prior to discharge. CT evidence showed peripancreatic head inflammation upon presentation to the clinic where she originally presented with abdominal discomfort before being directly admitted. Lipase was found to be just over 8000. Triglycerides found to be just below 4000 mg/dL. Gallstones and alcohol were ruled out as etiology. Patient had pain control as needed with narcotics which controlled her pain effectively. Patient was able to tolerate diet the night before and the morning and afternoon of the day of discharge. Patient ended up requiring a significant amount of intravascular volume repletion causing some third spacing. The patient did require 2-1/2 days of IV Lasix therapy to expel water weight. 2. Hypertriglyceridemia. Patient was placed on Crestor and fenofibrate upon admission. In consultation with gastroenterology through [facility] in [place], it was recommended that the patient be placed on an insulin infusion until triglycerides were below 500. Patient was placed in the intensive care unit for close monitoring considering insulin infusion. Patient was treated with an insulin infusion for roughly 48 hours as her triglycerides continued to trend down. Patient required D10 with occasional amps of D50 to keep her blood sugar up while on infusion. At time of discharge her triglycerides are anywhere between 450 and 520. Patient will continue with Crestor and TriCor and to be mindful of any myalgias. She has been instructed that if she feels muscle aches to discontinue both medications immediately and call her primary care physician. She will need close follow-up regarding her lipid panels. Would suggest at least 1 laboratory evaluation per month, and referral to endocrinology and/or gastroenterology in the near future for long-term planning. 3. Abdominal pain. Secondary to problem #1. Controlled with narcotics. Resolved at time of discharge. Patient was kept on DVT prophylaxis throughout admission. She was a full code. HPI Initial Comments: Initial Comments - Free Text/Narative: This is a 60-year-old female who presented to the walk-in clinic at [facility] with abdominal pain. She reports the pain began yesterday evening and is gotten worse, to the point where she cannot find a comfortable position. Denies any fever, nausea, diarrhea, constipation, blood in stool, dysuria, urinary frequency or urgency. Reports she did vomit this morning. Has been attempting to eat saltines and yogurt but they did not make her pain any better or worse. States pain is cramping consistent. Denies any previous abdominal surgery or history of diverticulosis or diverticulitis. At the walk-in clinic blood pressure was 136/85. Pulse 71. Temp 97.6 Fahrenhe it. Respirations 16. Oxygen saturations were 99% on room air. Labs are obtained showing a leukocytosis of 15.0. Hemoglobin 15.5. Lipase is elevated at 198, with a reference range of 8-78 being normal. UA is obtained and is grossly negative. CMP and amylase are still pending. Abdominal pelvis with contrast is obtained and shows acute pancreatitis without evidence of necrosis and a mildly complex right renal cyst. They recommend follow-up imaging within 6 to 12 months. Additional chronic findings are also noted. Patient reports significant abdominal pain. Patient was subsequently set to our hospital for direct admit for management of her pancreatitis. She carries a history of hypercholesteremia, hemorrhoids, and high triglycerides. She is a full code. Her PCP is Dr. German. - Related Data Allergies/Adverse Reactions: Allergies Allergy/AdvReac Type Severity Reaction Status Date / Time No Known Allergies Allergy Verified 06/11/14 17:49 Home Medications: Home Meds Calcium Carbonate [Calcium] 500 mg PO BID 09/03/20 [History] Cholecalciferol (Vitamin D3) [Vitamin D3] 1,000 unit PO DAILY 09/03/20 [History] Estrogens, Conjugated [Premarin Vaginal Crm] 30 gm VAG ASDIRECTED 09/03/20 [History] Gluc/MSM/C/[place]/Prim [Joint Support Complex Softgel] 1 tab PO BID 09/03/20 [History] Loratadine [Claritin] 10 mg PO DAILY 09/03/20 [History] Multivitamin [Multi-Day Vitamins] 1 tab PO DAILY 09/03/20 [History] Rosuvastatin [Crestor] 20 mg PO DAILY 09/03/20 [History] Ubidecarenone [Co Q-10] 50 mg PO DAILY 09/03/20 [History] H&P Review of Systems - Review of Systems: Review Of Systems: See Below General: Reports: No Symptoms. Denies: Fever, Chills, Malaise, Weakness, Fatigue HEENT: Reports: No Symptoms. Denies: Headaches, Sore Throat Pulmonary: Reports: No Symptoms. Denies: Shortness of Breath, Wheezing, Pleuritic Chest Pain, Cough, Sputum Cardiovascular: Reports: No Symptoms. Denies: Chest Pain, Palpitations, Dyspnea on Exertion, Edema Gastrointestinal: Reports: Abdominal Pain (generalized ), Vomiting. Denies: Black Stool, Bloody Stool, Constipation, Diarrhea, Nausea Genitourinary: Reports: No Symptoms. Denies: Pain Musculoskeletal: Reports: No Symptoms Skin: Reports: No Symptoms. Denies: Cyanosis Psychiatric: Reports: No Symptoms. Denies: Confusion Neurological: Reports: No Symptoms. Denies: Difficulty Walking, Gait Disturbance Hematologic/Lymphatic: Reports: No Symptoms Immunologic: Reports: No Symptoms Exam - Exam Exam: See Below - Vital Signs Weight: 179 lb 3.2 oz - Exam Quality Assessment: DVT Prophylaxis. No: Supplemental Oxygen, Urinary Catheter General: Alert, Oriented, Cooperative. No: Mild Distress HEENT: Conjunctiva Clear, EACs Clear, Mucosa Moist & [place], Nares Patent, Posterior Pharynx Clear Neck: Supple, Trachea Midline Lungs: Clear to Auscultation, Normal Respiratory Effort Cardiovascular: Regular Rate, Regular Rhythm GI/Abdominal Exam: Normal Bowel Sounds, Soft, No Distention, Guarding, Tender (Generalized ) (Female) Exam: Deferred Rectal (Female) Exam: Deferred Back Exam: Normal Inspection, Full Range of Motion Extremities: Normal Inspection, Normal Range of Motion, Non-Tender, No Pedal Edema, Normal Capillary Refill Skin: Warm, Dry, Intact Neurological: Cranial Nerves Intact (Grossly ) Neuro Extensive - Mental Status: Alert, Oriented x3, Normal Mood/Affect - Discharge Data Discharge Date: 09/07/20 Discharge Disposition: Home, Self-Care 01 Condition: Good - Referral to Home Health Primary Care Physician: Kristen Kim MD - Patient Summary/Data Consults: Consultations 09/03/20 12:53 Consult to Trade Show Coordinator [CONS] Routine - Patient Instructions Other/Special Instructions: Follow-up with PCP within 1 to 2 weeks time. Continue taking medications as outlined above. TriCor is a new antibiotic for you. If you experience muscle aches stop taking both your Crestor and TriCor immediately and call your primary care physician. Activity and diet are as tolerated. If you experience any signs or symptoms that warranted this admission please do not hesitate to call your primary care physician or present to an emergency department for an immediate evaluation. - Discharge Plan *PRESCRIPTION DRUG MONITORING PROGRAM REVIEWED*: Not Applicable *COPY OF PRESCRIPTION DRUG MONITORING REPORT IN PATIENT ELSA: Not Applicable Prescriptions/Med Rec: Fenofibrate Nanocrystallized [Tricor] 145 mg PO DAILY #30 tablet Home Medications: Home Meds Calcium Carbonate [Calcium] 500 mg PO BID 09/03/20 [History] Cholecalciferol (Vitamin D3) [Vitamin D3] 1,000 unit PO DAILY 09/03/20 [History] Estrogens, Conjugated [Premarin Vaginal Crm] 30 gm VAG ASDIRECTED 09/03/20 [History] Gluc/MSM/C/[place]/Prim [Joint Support Complex Softgel] 1 tab PO BID 09/03/20 [History] Loratadine [Claritin] 10 mg PO DAILY 09/03/20 [History] Multivitamin [Multi-Day Vitamins] 1 tab PO DAILY 09/03/20 [History] Rosuvastatin [Crestor] 20 mg PO DAILY 09/03/20 [History] Ubidecarenone [Co Q-10] 50 mg PO DAILY 09/03/20 [History] Fenofibrate Nanocrystallized [Tricor] 145 mg PO DAILY #30 tablet 09/07/20 [Rx] Rosuvastatin [Crestor] 20 mg PO BEDTIME tablet 09/07/20 [Rx] Patient Handouts: Abdominal Pain, Adult, Acute Pancreatitis, [id number], High Triglycerides Eating Plan Referrals: Kristen Kim MD [Primary Care Provider] - 09/16/20 8:00 am (this is the check in time.) - Discharge Summary/Plan Comment DC Time >30 min.: Yes - General Info Date of Service: 09/07/20 Admission Dx/Problem (Free Text: Admission Diagnosis/Problem Admission Diagnosis/Problem Abdominal pain Subjective Update: No acute events overnight. No new nursing concerns. Patient tolerated diet. Medically cleared for discharge. - Patient Data Vitals - Most Recent: Last Vital Signs Temp 97.2 F 09/07/20 04:00 Pulse 93 09/07/20 05:00 Resp 16 09/07/20 04:00 BP 141/87 H 09/07/20 04:00 Pulse Ox 94 L 09/07/20 05:00 Weight - Most Recent: 182 lb 14.4 oz I&O - Last 24 hours: Intake & Output 09/06/20 09/07/20 09/07/20 22:59 06:59 14:59 Intake Total 1230 600 Output Total 1700 400 Balance -470 200 Lab Results - Last 24 hrs: Laboratory Results - last 24 hr 09/06/20 09/06/20 09/06/20 Range/Units 08:12 09:25 10:18 Sodium (136-145) mEq/L Potassium (3.5-5.1) mEq/L Chloride (98-107) mEq/L Carbon Dioxide (21-32) mEq/L Anion Gap (5-15) BUN (7-18) mg/dL Creatinine (0.55-1.02) mg/dL Est Cr Clr Drug Dosing mL/min Estimated GFR (MDRD) (>60) mL/min BUN/Creatinine Ratio (14-18) Glucose (70-99) mg/dL POC Glucose 74 122 H 151 H (70-99) mg/dL Calcium (8.5-10.1) mg/dL Magnesium (1.8-2.4) mg/dL Total Bilirubin (0.2-1.0) mg/dL AST (15-37) U/L ALT (14-59) U/L Alkaline Phosphatase (46-116) U/L Total Protein (6.4-8.2) g/dl Albumin (3.4-5.0) g/dl Globulin gm/dL Albumin/Globulin Ratio (1-2) Triglycerides (<150) mg/dL 09/06/20 09/06/20 09/06/20 Range/Units 11:09 12:08 13:35 Sodium (136-145) mEq/L Potassium (3.5-5.1) mEq/L Chloride (98-107) mEq/L Carbon Dioxide (21-32) mEq/L Anion Gap (5-15) BUN (7-18) mg/dL Creatinine (0.55-1.02) mg/dL Est Cr Clr Drug Dosing mL/min Estimated GFR (MDRD) (>60) mL/min BUN/Creatinine Ratio (14-18) Glucose (70-99) mg/dL POC Glucose 115 H 90 148 H (70-99) mg/dL Calcium (8.5-10.1) mg/dL Magnesium (1.8-2.4) mg/dL Total Bilirubin (0.2-1.0) mg/dL AST (15-37) U/L ALT (14-59) U/L Alkaline Phosphatase (46-116) U/L Total Protein (6.4-8.2) g/dl Albumin (3.4-5.0) g/dl Globulin gm/dL Albumin/Globulin Ratio (1-2) Triglycerides (<150) mg/dL 09/06/20 09/06/20 09/06/20 Range/Units 14:09 14:20 15:10 Sodium 141 (136-145) mEq/L Potassium 3.2 L (3.5-5.1) mEq/L Chloride 102 (98-107) mEq/L Carbon Dioxide 28 (21-32) mEq/L Anion Gap 14.2 (5-15) BUN 4 L (7-18) mg/dL Creatinine 0.8 (0.55-1.02) mg/dL Est Cr Clr Drug Dosing 58.63 mL/min Estimated GFR (MDRD) > 60 (>60) mL/min BUN/Creatinine Ratio 5.0 L (14-18) Glucose 108 H (70-99) mg/dL POC Glucose 128 H 93 (70-99) mg/dL Calcium 7.9 L (8.5-10.1) mg/dL Magnesium (1.8-2.4) mg/dL Total Bilirubin 0.6 (0.2-1.0) mg/dL AST 29 (15-37) U/L ALT 71 H (14-59) U/L Alkaline Phosphatase 64 (46-116) U/L Total Protein 6.8 (6.4-8.2) g/dl Albumin 2.8 L (3.4-5.0) g/dl Globulin 4.0 gm/dL Albumin/Globulin Ratio 0.7 L (1-2) Triglycerides 517 H (<150) mg/dL 09/06/20 09/07/20 Range/Units 16:04 05:17 Sodium 140 (136-145) mEq/L Potassium 3.7 (3.5-5.1) mEq/L Chloride 103 (98-107) mEq/L Carbon Dioxide 27 (21-32) mEq/L Anion Gap 13.7 (5-15) BUN 8 (7-18) mg/dL Creatinine 0.7 (0.55-1.02) mg/dL Est Cr Clr Drug Dosing 67.01 mL/min Estimated GFR (MDRD) > 60 (>60) mL/min BUN/Creatinine Ratio 11.4 L (14-18) Glucose 134 H (70-99) mg/dL POC Glucose 91 (70-99) mg/dL Calcium 7.9 L (8.5-10.1) mg/dL Magnesium 2.1 (1.8-2.4) mg/dL Total Bilirubin 0.6 (0.2-1.0) mg/dL AST 24 (15-37) U/L ALT 51 (14-59) U/L Alkaline Phosphatase 68 (46-116) U/L Total Protein 6.2 L (6.4-8.2) g/dl Albumin 2.5 L (3.4-5.0) g/dl Globulin 3.7 gm/dL Albumin/Globulin Ratio 0.7 L (1-2) Triglycerides 436 H (<150) mg/dL Med Orders - Current: Current Medications Acetaminophen (Acetaminophen 325 Mg Tab) 650 mg PO Q6H PRN PRN Reason: Pain (mild 1-3) Last Admin: 09/05/20 11:44 Dose: 650 mg Documented by: Acetaminophen/Butalbital/Caffeine (Acetaminophen/Butalbital/Caffeine 325-50-40 Mg Tab) 1 tab PO Q4H PRN PRN Reason: Headache Last Admin: 09/06/20 20:16 Dose: 1 tab Documented by: Dextrose/Water (50% Dextrose In Water 50 Ml Sdv) 50 ml IV ASDIRECTED PRN PRN Reason: Hypoglycemia Enoxaparin Sodium (Enoxaparin 40 Mg/0.4 Ml Syringe) 40 mg SUBCUT DAILY SOULEYMANE Last Admin: 09/06/20 08:05 Dose: 40 mg Documented by: Fenofibrate (Fenofibrate Nanocrystallized 145 Mg Tab) 145 mg PO DAILY SOULEYMANE Hydromorphone HCl (Hydromorphone 1 Mg/Ml Syringe) 2 mg IVPUSH Q4H PRN PRN Reason: Pain Last Admin: 09/05/20 19:04 Dose: 2 mg Documented by: Ondansetron HCl (Ondansetron 4 Mg/2 Ml Sdv) 4 mg IV Q6H PRN PRN Reason: Nausea/Vomiting Last Admin: 09/04/20 05:30 Dose: 4 mg Documented by: Oxycodone HCl (Oxycodone 5 Mg Tab) 10 mg PO Q6H PRN PRN Reason: Pain (moderate 4-6) Last Admin: 09/05/20 02:03 Dose: 10 mg Documented by: Rosuvastatin Calcium (Rosuvastatin 10 Mg Tab) 20 mg PO BEDTIME SOULEYMANE Last Admin: 09/06/20 20:16 Dose: 20 mg Documented by: Simethicone (Simethicone 80 Mg Tab.Chew) 80 mg PO Q6H PRN PRN Reason: Gas Last Admin: 09/05/20 00:36 Dose: 80 mg Documented by: Sodium Chloride (Sodium Chloride 0.9% 10 Ml Syringe) 10 ml FLUSH ASDIRECTED PRN PRN Reason: Keep Vein Open Discontinued Medications Dextrose/Water (50% Dextrose In Water 50 Ml Syringe) 50 ml IVPUSH ASDIRECTED ONE Stop: 09/04/20 16:13 Last Admin: 09/04/20 16:20 Dose: 50 ml Documented by: Dextrose/Water (50% Dextrose In Water 50 Ml Syringe) 50 ml IVPUSH ASDIRECTED ONE Stop: 09/04/20 20:31 Last Admin: 09/04/20 20:41 Dose: 50 ml Documented by: Dextrose/Water (50% Dextrose In Water 50 Ml Syringe) 50 ml IVPUSH ASDIRECTED PRN PRN Reason: Hypoglycemia Last Admin: 09/06/20 12:14 Dose: 50 ml Documented by: Fenofibrate (Fenofibrate 54 Mg Tab) 54 mg PO DAILY SOULEYMANE Last Admin: 09/06/20 08:18 Dose: 54 mg Documented by: Furosemide (Furosemide 40 Mg/4 Ml Vial) 40 mg IVPUSH NOW ONE Stop: 09/05/20 06:23 Last Admin: 09/05/20 06:46 Dose: 40 mg Documented by: Furosemide (Furosemide 40 Mg/4 Ml Vial) 40 mg IVPUSH ONETIME ONE Stop: 09/05/20 13:01 Last Admin: 09/05/20 13:10 Dose: 40 mg Documented by: Furosemide (Furosemide 40 Mg/4 Ml Vial) 40 mg IVPUSH NOW ONE Stop: 09/06/20 07:24 Last Admin: 09/06/20 07:56 Dose: 40 mg Documented by: Furosemide (Furosemide 40 Mg/4 Ml Vial) 40 mg IVPUSH NOW ONE Stop: 09/06/20 14:01 Last Admin: 09/06/20 13:33 Dose: 40 mg Documented by: Hydromorphone HCl (Hydromorphone 0.5 Mg/0.5 Ml Syringe) 0.5 mg IVPUSH ONETIME ONE Stop: 09/03/20 14:37 Last Admin: 09/03/20 14:48 Dose: 0.5 mg Documented by: Hydromorphone HCl (Hydromorphone 1 Mg/Ml Syringe) 2 mg IVPUSH ONETIME ONE Stop: 09/03/20 19:01 Last Admin: 09/03/20 19:11 Dose: 2 mg Documented by: Hydromorphone HCl (Hydromorphone 1 Mg/Ml Syringe) Confirm Administered Dose 2 mg .ROUTE .STK-MED ONE Stop: 09/03/20 19:04 Last Admin: 09/03/20 19:11 Dose: Not Given Documented by: Sodium Chloride (Normal Saline) 1,000 mls @ 150 mls/hr IV ASDIRECTED [facility] Last Admin: 09/03/20 13:07 Dose: 150 mls/hr Documented by: Sodium Chloride (Normal Saline) 1,000 mls @ 250 mls/hr IV ASDIRECTED [facility] Last Admin: 09/04/20 12:15 Dose: 250 mls/hr Documented by: Insulin Human Regular 100 unit (/ Sodium Chloride) 100 mls @ 4.203 mls/hr IV ASDIRECTED [facility] Last Infusion: 09/05/20 15:06 Dose: 0.05 units/kg/hr, 4.5 mls/hr Documented by: Dextrose/Sodium Chloride (Dextrose 5%-Normal Saline) 1,000 mls @ 100 mls/hr IV ASDIRECTED [facility] Last Admin: 09/04/20 12:15 Dose: 100 mls/hr Documented by: Magnesium Sulfate 2 gm/ Premix 50 mls @ 25 mls/hr IV ONETIME ONE Stop: 09/04/20 13:59 Last Admin: 09/04/20 12:10 Dose: 25 mls/hr Documented by: Dextrose/Sodium Chloride (Dextrose 5%-Normal Saline) 1,000 mls @ 150 mls/hr IV ASDIRECTED [facility] Last Admin: 09/05/20 09:43 Dose: 150 mls/hr Documented by: Sodium Chloride (Normal Saline) 1,000 mls @ 200 mls/hr IV ASDIRECTED [facility] Last Admin: 09/05/20 03:13 Dose: 200 mls/hr Documented by: Potassium Chloride 10 meq/ (Premix) 100 mls @ 100 mls/hr IV Q1H [facility] Stop: 09/05/20 11:29 Last Admin: 09/05/20 13:57 Dose: 50 mls/hr Documented by: Dextrose/Water (Dextrose 10% In Water) 1,000 mls @ 80 mls/hr IV ASDIRECTED [facility] Last Admin: 09/06/20 03:39 Dose: 80 mls/hr Documented by: Insulin Human Regular 100 unit (/ Sodium Chloride) 100 mls @ 4.536 mls/hr IV ASDIRECTED [facility] Last Admin: 09/06/20 11:07 Dose: 0.05 units/kg/hr, 4.536 mls/hr Documented by: Potassium Chloride 10 meq/ (Premix) 100 mls @ 100 mls/hr IV Q1H [facility] Stop: 09/06/20 01:29 Last Admin: 09/06/20 02:40 Dose: 60 mls/hr Documented by: Morphine Sulfate (Morphine 2 Mg/Ml Syringe) 2 mg IVPUSH Q2H PRN PRN Reason: Pain (severe 7-10) Last Admin: 09/03/20 13:06 Dose: 2 mg Documented by: Morphine Sulfate (Morphine 4 Mg/Ml Syringe) 4 mg IVPUSH Q2H PRN PRN Reason: Pain (severe 7-10) Last Admin: 09/03/20 17:07 Dose: 4 mg Documented by: Ondansetron HCl (Ondansetron 4 Mg/2 Ml Sdv) 4 mg IVPUSH ONETIME ONE Stop: 09/03/20 14:39 Last Admin: 09/03/20 14:48 Dose: 4 mg Documented by: Oxycodone HCl (Oxycodone 5 Mg Tab) 5 mg PO Q6H PRN PRN Reason: Pain (moderate 4-6) Oxycodone HCl (Oxycodone 5 Mg Tab) 5 mg PO ONETIME ONE Stop: 09/03/20 14:40 Last Admin: 09/03/20 14:48 Dose: 5 mg Documented by: Potassium Chloride (Potassium Chloride 20 Meq Tab.Er) 40 meq PO ONETIME ONE Stop: 09/05/20 21:21 Last Admin: 09/05/20 21:55 Dose: 40 meq Documented by: Potassium Chloride (Potassium Chloride 20 Meq Tab.Er) 40 meq PO ONETIME ONE Stop: 09/06/20 07:22 Last Admin: 09/06/20 07:57 Dose: 40 meq Documented by: Potassium Chloride (Potassium Chloride 20 Meq Tab.Er) 40 meq PO ONETIME ONE Stop: 09/06/20 15:46 Last Admin: 09/06/20 16:01 Dose: 40 meq Documented by: Rosuvastatin Calcium (Rosuvastatin 10 Mg Tab) 10 mg PO BEDTIME SOULEYMANE Rosuvastatin Calcium (Rosuvastatin 10 Mg Tab) 5 mg PO BEDTIME SOULEYMANE Sodium Chloride (Sodium Chloride 0.9% 10 Ml Syringe) 10 ml FLUSH ASDIRECTED PRN PRN Reason: Keep Vein Open - Exam Quality Assessment: Reports: DVT Prophylaxis General: Reports: Alert Lungs: Reports: Clear to Auscultation, Normal Respiratory Effort Cardiovascular: Reports: Regular Rate, Regular Rhythm GI/Abdominal Exam: Normal Bowel Sounds, Soft, Non-Tender, No Distention Extremities: Normal Inspection, No Pedal Edema Skin: Reports: Warm Neurological: Reports: No New Focal Deficit Psy/Mental Status: Reports: Normal Affect, Normal Mood
[2020-09-07] MEDS: Enoxaparin 40 MG/0.4 ML Syringe SUBCUT SCH (08:10)
[2020-09-07] MEDS ORDERED: Fenofibrate Nanocrystallized 145 MG Tab PO SCH (09:00)
[2020-09-07 10:14] VITALS: BP 142/86; PULSE 89
== END 2020-09-07 08:55 | disposition home or self-care (01) | DRG 282 ==
LOC: JD.MS 12:33 → OBSVTOIN 09-04 10:55 → JD.ICU 09-04 10:56
PROVIDERS: ADMIT Physician Assistant; ATTEND Physician Assistant
DX: K85.90 Acute pancreatitis without necrosis or infection, unspecified (principal); E78.1 Pure hyperglyceridemia; E78.00 Pure hypercholesterolemia, unspecified; E78.5 Hyperlipidemia, unspecified; E87.6 Hypokalemia; E83.42 Hypomagnesemia; E88.09 Other disorders of plasma-protein metabolism, not elsewhere classified; Z20.822 Contact with and (suspected) exposure to COVID-19; Z79.899 Other long term (current) drug therapy
CPT/HCPCS: 36415; 80048; 80053; 80061; 82947; 83735; 84443; 84478; 85025; 86140; 96365; 96366; 96375; 96376; 99220; 99233; 99239; A9270-GY; G0378; J1170; J1650; J1815-GY; J1940; J2270; J2405; J3475; J3480; J7030; J7042; U0002

== ENCOUNTER 2020-09-10 22:12 | Emergency (ER) | payer BC ==
[2020-09-10 22:32] VITALS: BP 147/98; PULSE 100
[2020-09-10] MEDS ORDERED: Clobetasol 0.05% Crm 30 GM Tube TOP STA (23:23)
--- NOTE | 2020-09-10 23:31 | EDM.PDOC ---
ED HPI GENERAL MEDICAL PROBLEM - General Chief Complaint: Skin Complaint Stated Complaint: REACTION TO SOMETHING Time Seen by Provider: 09/10/20 22:44 Source of Information: Reports: Patient, Family () History Limitations: Reports: No Limitations - History of Present Illness INITIAL COMMENTS - FREE TEXT/NARRATIVE: Mrs. Montanez is a pleasant 68-year-old woman who, medical records indicate, was directly admitted to this hospital for pancreatitis due to hypertriglyceridemia of 3791, with a total cholesterol 441, on 09/04/2020. Her pancreatitis was treated with narcotics and IV fluid, while her mixed hyperlipidemia was treated with Crestor and fenofibrate. She was discharged home on 09/07/2020. He states that she started outpatient fenofibrate on 09/08/2020. She states that she developed generalized pruritus yesterday, then developed an erythematous rash, primarily to her lower chest and upper abdomen, but also wrapping around to her back, and somewhat onto her extremities, this afternoon. No recent fever. No lip swelling, the sensation of oral swelling, or other signs of angioedema. No dyspnea or wheezing. No gastrointestinal symptoms, dowell ch as GERD/gastritis, abdominal cramps, or diarrhea. No prior similar symptoms. The patient states that she ordinarily takes cetirizine every morning, but after these symptoms began, she took 10 mL of children's Benadryl around 1900 this evening. She has also applied hydrocortisone cream, and taken a bath with baking soda and Epson salts, all without improvement in her symptoms. Here in the ED, the patient's initial BP is found to be mildly elevated 147/98, otherwise, she is hemodynamically stable, afebrile, saturating 95% on room air. Prior to 09/04/2020, the patient denies having a recent fever, chills, sore throat, ear pain, nasal or sinus congestion, cough, dyspnea, chest pain, palpitations, nausea, vomiting, constipation, diarrhea, abdominal pain, urinary symptoms, recent weight gain or weight loss, recent bloody bowel movements or black bowel movements, recent joint aches, headaches, or rashes. The patient's PCP is Dr. Kristen German. Her Dinking Machine Operator is Dr. Julius Pineda. - Related Data Allergies Allergy/AdvReac Type Severity Reaction Status Date / Time No Known Allergies Allergy Verified 09/10/20 22:32 Home Meds: Home Meds Calcium Carbonate [Calcium] 500 mg PO BID 09/03/20 [History] Cholecalciferol (Vitamin D3) [Vitamin D3] 1,000 unit PO DAILY 09/03/20 [History] Estrogens, Conjugated [Premarin Vaginal Crm] 30 gm VAG ASDIRECTED 09/03/20 [History] Multivitamin [Multi-Day Vitamins] 1 tab PO DAILY 09/03/20 [History] Ubidecarenone [Co Q-10] 50 mg PO DAILY 09/03/20 [History] Fenofibrate Nanocrystallized [Tricor] 145 mg PO DAILY #30 tablet 09/07/20 [Rx] Rosuvastatin [Crestor] 20 mg PO BEDTIME tablet 09/07/20 [Rx] Betamethasone Dipropionate [Diprolene AF 0.05% Crm] 1 applic TOP BID #1 tube 09/10/20 [Rx] Cetirizine [ZyrTEC] 10 mg PO DAILY 09/10/20 [History] Past Medical History HEENT History: Reports: Allergic Rhinitis Cardiovascular History: Reports: High Cholesterol Gastrointestinal History: Reports: Pancreatitis (due to hypertriglyceridemia, 09/04/2020) Musculoskeletal History: Reports: Arthritis Endocrine/Metabolic History: Reports: Obesity/BMI 30+ - Infectious Disease History Infectious Disease History: Reports: Chicken Pox - Past Surgical History HEENT Surgical History: Reports: Naso-Sinus Surgery (Correction of deviated septum + sinus surgey + nasal surgery), Tonsillectomy (with subsequent removal of scar tissue) Female Surgical History: Reports: Section (x 2), Hysterectomy (partial) Musculoskeletal Surgical History: Reports: Arthroscopic Knee (left) Social & Family History - Tobacco Use Tobacco Use Status *Q: Never Tobacco User - Caffeine Use Caffeine Use: Reports: Coffee Other Caffeine Use: a few cups a day - Alcohol Use Alcohol Use History: Yes Alcohol Use Frequency: Socially - Recreational Drug Use Recreational Drug Use: No - Living Situation & Occupation Living situation: Reports: , with Spouse 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 ED EXAM, SKIN/RASH Exam: See Below Exam Limited By: No Limitations General Appearance: Alert, WD/WN, No Apparent Distress Eye Exam: Bilateral Eye: EOMI, Normal Inspection Ears: Normal External Exam, Normal Canal, Hearing Grossly Normal, Normal TMs Nose: Normal Inspection, Normal Mucosa, No Blood Throat/Mouth: Normal Inspection, Normal Lips (no swelling), Normal Teeth, Normal Gums, Normal Oropharynx (no oropharyngal swelling), Normal Voice, No Airway Compromise Head: Atraumatic, Normocephalic Neck: Normal Inspection, Full Range of Motion. No: Lymphadenopathy (L), Lymphadenopathy (R) Respiratory/Chest: No Respiratory Distress, Lungs Clear, Normal Breath Sounds, No Accessory Muscle Use. No: Decreased Breath Sounds, Crackles, Rhonchi, Wheezing, Stridor, Prolonged Expiration Cardiovascular: Normal Peripheral Pulses, Regular Rate, Rhythm, No Edema, No Gallop, No JVD, No Murmur, No Rub Peripheral Pulses: 3+: Radial (L), Radial (R) GI/Abdominal: Normal Bowel Sounds, Soft, Non-Tender, No Organomegaly, No Distention, No Abnormal Bruit, No Mass Back Exam: Normal Inspection, Full Range of Motion, NT Extremities: Normal Inspection, Normal Range of Motion, No Pedal Edema, Normal Capillary Refill Neurological: Alert, Oriented, Normal Cognition, No Motor/Sensory Deficits Psychiatric: Normal Affect Skin: Warm, Dry, Intact, Other (Maculopapular rash primarily to the lower chest/upper abdomen, and around to her back. Minimal lesions seen on the extremities. None on the face or palms.) Course - Vital Signs Last Recorded V/S: Last Vital Signs Temp 36.2 C 09/10/20 22:29 Pulse 100 09/10/20 22:29 Resp 16 09/10/20 22:29 BP 147/98 H 09/10/20 22:29 Pulse Ox 95 09/10/20 22:29 - Orders/Labs/Meds Meds: Medications Discontinued Medications Generic Name Dose Route Start Last Admin Trade Name Freq PRN Reason Stop Dose Admin Clobetasol Propionate 1 gm 09/10/20 23:23 Clobetasol 0.05% Crm 30 Gm Tube TOP 09/10/20 23:24 BID STA Triamcinolone Acetonide 1 gm 09/10/20 23:32 Triamcinolone Acetonide 0.5% Crm 15 Gm Tube TOP 09/10/20 23:33 BID STA - Re-Assessments/Exams Free Text/Narrative Re-Assessment/Exam: 09/10/20 23:26 As above, the patient developed generalized pruritus yesterday, then an erythematous rash, primarily to her lower chest and upper abdomen, but also around to her back, with some extension onto her extremities, this afternoon. On examination, the rash is maculopapular consistent with an exanthematous drug eruption, most likely to the fenofibrate that she was started on on Tuesday. In addition to discontinuation of the fenofibrate, treatment consists of a high potency topical steroid and an antihistamine. The patient is already on cetirizine, which I will have her continue to take, 10 mg po QAM. 09/10/20 23:45 Both betamethasone cream and triamcinolone ointment are on formulary, however, we do not actually have them in the hospital. The patient will have to wait until she can picking machine operator a prescription tomorrow. I will prescribe betamethasone cream. The patient has an appointment to follow-up with Dr. Tejada on 09/16/2020, however, if her rash worsens before then, I would like her to return to the ED for reevaluation. Departure - Departure Time of Disposition: 23:48 Disposition: Home, Self-Care 01 Condition: Good Clinical Impression: Drug eruption - Discharge Information *PRESCRIPTION DRUG MONITORING PROGRAM REVIEWED*: Not Applicable *COPY OF PRESCRIPTION DRUG MONITORING REPORT IN PATIENT ELSA: Not Applicable Prescriptions: Betamethasone Dipropionate [Diprolene AF 0.05% Crm] 1 applic TOP BID #1 tube Instructions: Drug Allergy, Acth-ep-Chmy, Dyshidrotic Eczema Referrals: Kristen Kim MD [Primary Care Provider] - Julius Pineda MD [Physician] - Forms: ED Department Discharge Additional Instructions: You were seen in the emergency room after developing an itchy rash primarily to your lower chest and upper abdomen, but also to your back and somewhat to your extremities. Blood work, to exclude other causes, was recommended, but declined. Based on your history and physical examination, you are most likely suffering from an exanthematous maculopapular drug eruption, most likely to the fenofibrate that you were started on on Tuesday. We recommend that you discontinue the fenofibrate immediately. A prescription for the high potency topical steroid betamethasone cream has been sent to the [facility], located just south and across the [address] from [facility]. Apply the betamethasone cream to affected areas twice a day. We recommend that you apply it with gloves, but if you need to apply it with your bare hands, make sure you wash your hands thoroughly. Make sure that none of the steroid cream gets onto your face. In addition to the betamethasone cream, you are to take 10 mg of cetirizine (Zyrtec) every morning. Try to stay cool. Heat will likely make your itchiness worse. You need to be patient. Your symptoms will not likely resolve for another 7 to 10 days. Please follow-up with your PCP, Dr. Kristen German, at the next available appointment. An alternative to fenofibrate, to reduce your cholesterol, will need to be chosen. If your rash worsens before you see Dr. German, please return to the ER for reevaluation. Sepsis Event Note (ED) - Evaluation Sepsis Screening Result: No Definite Risk - Focused Exam Vital Signs: Vital Signs Temp Pulse Resp BP Pulse Ox 09/10/20 22:29 36.2 C 100 16 147/98 H 95
[2020-09-10] MEDS ORDERED: Triamcinolone Acetonide 0.5% Crm 15 GM Tube TOP STA (23:32)
== END 2020-09-11 00:06 | disposition home or self-care (01) ==
LOC: JD.ED 22:12
DX: L27.0 Generalized skin eruption due to drugs and medicaments taken internally (principal); T46.6X5A Adverse effect of antihyperlipidemic and antiarteriosclerotic drugs, initial encounter; E78.00 Pure hypercholesterolemia, unspecified; E66.9 Obesity, unspecified; Z68.32 Body mass index [BMI] 32.0-32.9, adult; Z79.899 Other long term (current) drug therapy
CPT/HCPCS: 99283